=== PATIENT | female | born 1955 | race Caucasian/White ===

== ENCOUNTER 2019-09-19 13:57 | Inpatient (IN) | payer MEDICARE, OTHER, SELFPAY ==
--- NOTE | ~2019-09-19 | US_ITS ---
EXAMINATION: US art doppler w press LE BI EXAM DATE: 09/19/2019 15:56 INDICATION: Left second toe infection, right below-knee amputation. TECHNIQUE: Segmental pressures and plethysmographic and Doppler waveforms of the brachial and left lo wer extremity arteries were obtained. Comparison is made to prior examination from 07/02/2019. FINDINGS: Could not obtain the brachial artery pressures. RIGHT LEG: The ankle-brachial index (CUCO) is could not obtain (normal >= 0.9-1). The great toe-brachial index (TBI) is could not obtain (normal >= 0.65). The lower extremity ratios, segmental pressure gradients as follows; Dorsalis pedis: Could not obtain ( mmHg). Posterior tibial: Could not obtain ( mmHg). LEFT LEG: The ankle-brachial index (CUCO) is could not obtain (normal >= 0.9-1). The great toe-brachial index (TBI) is could not obtain (normal >= 0.65). The lower extremity ratios, segmental pressure gradients as follows; Dorsalis pedis: Could not obtain ( mmHg). Posterior tibial: Could not obtain ( mmHg). Waveforms are monophasic. Systolic left toe pressure of 111 mmHg. IMPRESSION: Could not obtain ankle brachial indices. Reviewed, dictated and finalized at location A. LES POURER
--- NOTE | ~2019-09-19 | XR_ITS ---
XR foot LT min 3V DATE: 09/19/2019 14:56 INDICATION: Third toe foot wound TECHNIQUE: 4 views of left foot COMPARISON: None FINDINGS: There is diffuse severe osteopenia. No fracture or dislocation or active periosteal reaction or bone destruction is detected. Mild chroni c deformity at the interphalangeal joint of the great toe. There are extensive arterial calcifications of the ankle and foot including prominent calcification o f the metatarsal and digital arteries, suggesting diabetes most likely. Prominent calcifications are noted in the soft tissues posterior to the calcaneus. IMPRESSION: Extensive arterial calcifications, likely due to diabetes Severe diffuse osteopenia No radiographic findings of osteomyelitis are noted Reviewed, dictated and finalized at location B. USSION INSTRUMENT TUNER
[2019-09-19 14:25] VITALS: BP 83/39; PULSE 47; RESP 12; TEMP 36.3; O2SAT 100
--- NOTE | 2019-09-19 14:36 | ED.LOWEXIN ---
HPI - Extremity Injury (Lower) General Chief Complaint: Extremity Injury, Lower Stated Complaint: Toe Infection Time Seen by Provider: 09/19/19 14:31 Source: patient and family (son) Mode of arrival: EMS Limitations: no limitations History of Present Illness HPI Narrative: Pt is a 64 y/o female who presents to the ED, via EMS with c/o a wound to her lt second toe. Pt lives at home with her son. Per son, pt has had the wound for 3 months and he has been managing it. Pt denies cough, SOB, N/V, or fever. Pt was seen in the ED a month ago for her wound but has not followed up with her PCP. MD complaint: other (wound lt second toe) Onset (ago): month(s) (3) Relieving factors: nothing Other symptoms: none Related Data Home Medications Medication Instructions Recorded Confirmed Lantus U-100 Insulin 15 unit SUBCUT BID 07/02/19 07/02/19 allopurinol 100 mg PO DAILY 07/02/19 07/02/19 amlodipine 5 mg PO HS 07/02/19 07/02/19 aspirin [Adult Low Dose Aspirin] 81 mg PO DAILY 07/02/19 07/02/19 atorvastatin 40 mg PO EVERY OTHER DAY 07/02/19 07/02/19 clonidine HCl 0.2 mg PO TID 07/02/19 07/02/19 clopidogrel 75 mg PO DAILY 07/02/19 07/02/19 cyanocobalamin (vitamin B-12) 1,000 mcg PO 3XW 07/02/19 07/02/19 cyclosporine modified 50 mg PO Q12H 07/02/19 07/02/19 ergocalciferol (vitamin D2) 50,000 unit PO WEEKLY 07/02/19 07/02/19 folic acid 1 mg PO DAILY 07/02/19 07/02/19 furosemide 40 mg PO DAILY PRN 07/02/19 07/02/19 isosorbide mononitrate 30 mg PO DAILY 07/02/19 07/02/19 levetiracetam 500 mg PO BID 07/02/19 07/02/19 magnesium oxide 400 mg PO EVERY OTHER DAY 07/02/19 07/02/19 metoprolol tartrate 12.5 mg PO BID 07/02/19 07/02/19 mycophenolate mofetil 250 mg PO BID 07/02/19 07/02/19 omeprazole 40 mg PO BID 07/02/19 07/02/19 polyethylene glycol 3350 [Miralax] 17 g PO DAILY 07/02/19 07/02/19 prednisone 5 mg PO DAILY 07/02/19 07/02/19 tamsulosin 0.4 mg PO DAILY 07/02/19 07/02/19 Allergies Allergy/AdvReac Type Severity Reaction Status Date / Time gentamicin Allergy Unknown Unknown Verified 09/19/19 17:10 metronidazole Allergy Unknown Unknown Verified 09/19/19 17:10 Penicillins Allergy Unknown Unknown Verified 09/19/19 17:10 simvastatin Allergy Unknown Unknown Verified 09/19/19 17:10 Sulfa (Sulfonamide Allergy Unknown Rash Verified 09/19/19 17:10 Antibiotics) losartan Allergy Unknown Verified 09/19/19 17:10 iohexol AdvReac Severe Other Verified 09/19/19 17:10 [From CONTRAST - CT, XRAY] Review of Systems Review of Systems: All systems reviewed & are unremarkable except as noted in HPI and below Constitutional: Constitutional: Denies fever(s) Respiratory: Respiratory: Denies cough and Denies dyspnea Gastrointestinal: Gastrointestinal: Denies nausea and Denies vomiting Integumentary/Breasts: Skin/Breast: Reports wounds (lt second toe) PMFSH Past Medical History Medical History Acute respiratory failure BEAU (acute kidney injury) Cataracts, bilateral Cellulitis of toe of left foot CHF (congestive heart failure) Cholecystitis Chronic anemia CKD stage 3 due to type 1 diabetes mellitus Colitis CVA (cerebral vascular accident) Diabetic neuropathy Fecal impaction GERD (gastroesophageal reflux disease) HTN (hypertension) Hyperkalemia Hyperlipidemia Immunosuppression due to drug therapy SRINI (obstructive sleep apnea) Otitis externa Recurrent falls while walking Renal failure Right hemiplegia Seizure disorder Steroid dependent Type 1 diabetes UTI (urinary tract infection) Surgical History Surgical History History of appendectomy Hx of BKA Hx of cardiac cath Hx of cataract surgery Kidney transplant recipient Social History Social History Smoking status: Never smoker Second hand tobacco smoke exposure: Yes Alcohol intake: never Substance use: never Substance use type: does n
[2019-09-19] MEDS: LACTATED RINGERS 1,000 ML 999 ML IV CONT (15:16)
[2019-09-19 15:24] LABS: Basophils Percent Auto 0.4 % (0.2-1.2); Eosinophils Absolute Auto 0.1 K/mm3 (0-0.3); Eosinophils Percent Auto 1.1 % (0-4.4); Hematocrit 36.1 % (37.0-47.0); Hemoglobin 11.4 g/dL (12.0-15.0); Immature Granulocyte Absolute 0.19 K/mm3 (0.00-0.031); Immature Granulocyte Percent A 1.7 % (0-0.5); Lymphocytes Absolute Auto 1.61 K/mm3 (0.9-3.2); Lymphocytes Percent Auto 14.6 % (18.3-44.2); Mean Corpuscular HGB Conc 31.6 g/dl (32-36); Mean Corpuscular Hemoglobin 29.5 pg (26-34); Mean Corpuscular Volume 93.3 fl (80-100); Mean Platelet Volume 9.4 fl (7.4-10.4); Monocytes Absolute Auto 0.7 K/mm3 (0.1-0.6); Monocytes Percent Auto 5.9 % (2.6-8.5); Neutrophils Absolute Auto 8.4 K/mm3 (1.3-6.7); Neutrophils Percent Auto 76.3 % (45.5-73.1); Platelet Count Result 430 k/mm3 (150-375); Red Blood Count 3.87 M/mm3 (4.2-5.4); Red Cell Distribution Width 14.2 % (11.5-14.5)
[2019-09-19 15:33] LABS: Prothrombin Time 12.5 Seconds (11.1-14.7)
[2019-09-19 15:34] LABS: Partial Thromboplastin Time 24.6 SECONDS (22.3-36.8)
[2019-09-19 15:35] LABS: Lactic Acid Reflex 2.2 mmol/L (0.7-2.1)
[2019-09-19 15:54] LABS: Alanine Aminotransferase 13 U/L (4-35); Albumin Level 3.3 g/dL (3.5-5.1); Alkaline Phosphatase 49 U/L (38-126); Aspartate Amino Transferase 21 U/L (14-36); Bilirubin,Total 0.5 mg/dL (0.2-1.3); Blood Urea Nitrogen 45 mg/dL (7-17); Calcium 8.8 mg/dL (8.4-10.2); Carbon Dioxide 23 mmol/L (22-30); Chloride 102 mmol/L (98-107); Estimated Glomerular Filt Rate 38; Glucose 101 mg/dL (65-105); Potassium 4.4 mmol/L (3.4-5.0); Sodium 136 mmol/L (137-145)
[2019-09-19 16:32] VITALS: BP 123/73; PULSE 74; RESP 13; O2SAT 100
--- NOTE | 2019-09-19 18:14 | ADMGEN ---
This patient, Diana Ott, was admitted to 2 Medical Room 254-01. Patient/family oriented to hospital policies and general routines including ID bracelet, bed and alarms, visiting hours, pain management, procedures, bathroom and other care routines, personal items, smoking policy, room service/diet, and visiting hours. Valuables list has been completed. Information on how to activate the Rapid Response Team has been discussed. Patient/Family are encouraged to report perceived risks to care and to ask questions if they do not understand what they are told or what they should do.
[2019-09-19 18:21] LABS: Reflex Lactic Acid Yes or No Add Lactic
--- NOTE | 2019-09-19 18:27 | PC.NURSE ---
Patient and family poor historians. Unable to confirm reactions to allergies.
[2019-09-19 18:35] VITALS: BP 105/74; PULSE 78; RESP 16; O2SAT 95
[2019-09-19 18:52] VITALS: BP 117/68; PULSE 62; RESP 18; TEMP 36.9; O2SAT 100
[2019-09-19 19:04] LABS: Lactic Acid 2.4 mmol/L (0.7-2.1)
[2019-09-19 22:00] VITALS: BP 109/57; PULSE 79; RESP 16; TEMP 36.8; O2SAT 98
--- NOTE | 2019-09-20 03:00 | PM.IMHP ---
H&P: HPI History of Present Illness Chief complaint: Sent to ER by PCP Narrative: This is a 63 year old Diabetic female with known CKD w/ previous HD now s/p bilateral renal transplant x2 on immunosuppressive therapy, HTN, CHF who presented again to the ER for evaluation of a chronic wound of her 2nd toe of her left foot. The patient remarks that her PCP sent her to the ER yesterday. The patient was last admitted to our Hospitalist service for this second toe wound in June 2019 where she was treated with Imipenem/Vancomycin. The patient states that she believes her chronic wound has actually been improving recently and is not as red as it has been a few weeks ago. She denies any drainage, fevers, chills, nausea, vomiting, shortness of breath or other symptoms. The patient was evaluated in the ER yesterday and routine labs were obtained. She was found to have a mildly elevated WBC of 11,000 and elevated lactic acid of 2.2. ER provider has started the patient on IV antibiotics and General surgery has been consulted. She has no other complaints. Review of Systems Review of Systems: All systems reviewed & are unremarkable except as noted in HPI and below PMFSH Past Medical History Medical History Acute respiratory failure BEAU (acute kidney injury) Cataracts, bilateral Cellulitis of toe of left foot CHF (congestive heart failure) Cholecystitis Chronic anemia CKD stage 3 due to type 1 diabetes mellitus Colitis CVA (cerebral vascular accident) Diabetic neuropathy Fecal impaction GERD (gastroesophageal reflux disease) HTN (hypertension) Hyperkalemia Hyperlipidemia Immunosuppression due to drug therapy SRINI (obstructive sleep apnea) Otitis externa Recurrent falls while walking Renal failure Right hemiplegia Seizure disorder Steroid dependent Type 1 diabetes UTI (urinary tract infection) Surgical History Surgical History History of appendectomy Hx of BKA Hx of cardiac cath Hx of cataract surgery Kidney transplant recipient Family History Family History Mother Heart disease COPD (chronic obstructive pulmonary disease) Father Leukemia Social History Social History Smoking status: Never smoker Second hand tobacco smoke exposure: Yes Alcohol intake: never Substance use: never Substance use type: does not use Gender identity (if verbalized by the patient): Female Spiritual care concerns: No Agree to blood products: Yes Meds Home Medications and Allergies Home Medications Medication Instructions Recorded Confirmed Type Lantus U-100 Insulin 15 unit SUBCUT BID 07/02/19 09/19/19 History allopurinol 100 mg PO DAILY 07/02/19 09/19/19 History amlodipine 5 mg PO HS 07/02/19 09/19/19 History aspirin [Adult Low Dose Aspirin] 81 mg PO DAILY 07/02/19 09/19/19 History atorvastatin 40 mg PO EVERY OTHER DAY 07/02/19 09/19/19 History clonidine HCl 0.2 mg PO TID 07/02/19 09/19/19 History clopidogrel 75 mg PO DAILY 07/02/19 09/19/19 History cyanocobalamin (vitamin B-12) 1,000 mcg PO 3XW 07/02/19 09/19/19 History cyclosporine modified 50 mg PO Q12H 07/02/19 09/19/19 History ergocalciferol (vitamin D2) 50,000 unit PO WEEKLY 07/02/19 09/19/19 History folic acid 1 mg PO DAILY 07/02/19 09/19/19 History furosemide 40 mg PO PRN 07/02/19 09/19/19 History isosorbide mononitrate 30 mg PO DAILY 07/02/19 09/19/19 History levetiracetam 500 mg PO BID 07/02/19 09/19/19 History magnesium oxide 400 mg PO EVERY OTHER DAY 07/02/19 09/19/19 History metoprolol tartrate 12.5 mg PO BID 07/02/19 09/19/19 History mycophenolate mofetil 250 mg PO BID 07/02/19 09/19/19 History omeprazole 40 mg PO BID 07/02/19 09/19/19 History polyethylene glycol 3350 [Miralax] 17 g PO DAILY 07/02/19 09/19/19 History prednisone 5 mg PO DAILY 07/02/19
[2019-09-20 03:44] LABS: Basophils Percent Auto 0.4 % (0.2-1.2); Eosinophils Absolute Auto 0.1 K/mm3 (0-0.3); Eosinophils Percent Auto 1.1 % (0-4.4); Hematocrit 34.1 % (37.0-47.0); Hemoglobin 10.6 g/dL (12.0-15.0); Immature Granulocyte Absolute 0.15 K/mm3 (0.00-0.031); Immature Granulocyte Percent A 1.5 % (0-0.5); Lactic Acid Reflex 1.1 mmol/L (0.7-2.1); Lymphocytes Absolute Auto 1.43 K/mm3 (0.9-3.2); Lymphocytes Percent Auto 14.3 % (18.3-44.2); Mean Corpuscular HGB Conc 31.1 g/dl (32-36); Mean Corpuscular Hemoglobin 28.8 pg (26-34); Mean Corpuscular Volume 92.7 fl (80-100); Mean Platelet Volume 9.5 fl (7.4-10.4); Monocytes Absolute Auto 0.7 K/mm3 (0.1-0.6); Monocytes Percent Auto 6.8 % (2.6-8.5); Neutrophils Absolute Auto 7.6 K/mm3 (1.3-6.7); Neutrophils Percent Auto 75.9 % (45.5-73.1); Platelet Count Result 415 k/mm3 (150-375); Red Blood Count 3.68 M/mm3 (4.2-5.4); Red Cell Distribution Width 14.2 % (11.5-14.5)
[2019-09-20 03:45] LABS: Alanine Aminotransferase 13 U/L (4-35); Albumin Level 3.1 g/dL (3.5-5.1); Alkaline Phosphatase 70 U/L (38-126); Aspartate Amino Transferase 19 U/L (14-36); Bilirubin,Total 0.4 mg/dL (0.2-1.3); Blood Urea Nitrogen 43 mg/dL (7-17); Calcium 8.7 mg/dL (8.4-10.2); Carbon Dioxide 21 mmol/L (22-30); Chloride 103 mmol/L (98-107); Estimated Glomerular Filt Rate 32; Glucose 350 mg/dL (65-105); Potassium 4.4 mmol/L (3.4-5.0); Sodium 136 mmol/L (137-145)
[2019-09-20 06:00] VITALS: BP 138/51; PULSE 88; RESP 16; TEMP 37.2; O2SAT 98
[2019-09-20] MEDS: INSULIN ASPART (*BKC) 100 UNITS/ML SUB-Q ×2 (08:11→16:47)
[2019-09-20] MEDS: INSULIN GLARGINE (*BKC) 100 UNITS/ML 15 UNITS SUB-Q ×2 (08:11→22:33)
[2019-09-20] MEDS: polyethylene glycoL 3350 17 GM POWD.PACK PO (08:15)
[2019-09-20] MEDS: mycophenolate mofetiL 250 MG CAPSULE PO ×2 (08:15→22:19)
[2019-09-20 08:17] VITALS: PULSE 99
[2019-09-20] MEDS: METOPROLOL TARTRATE 12.5 MG TABLET PO ×2 (08:17→22:19)
[2019-09-20] MEDS: TAMSULOSIN HCL 0.4 MG CAPSULE PO (08:17)
[2019-09-20] MEDS: PANTOPRAZOLE 40 MG TABLET PO ×2 (08:18→22:19)
[2019-09-20] MEDS: CLOPIDOGREL BISULFATE 75 MG TABLET PO (08:18)
[2019-09-20] MEDS: FOLIC ACID 1 MG TABLET PO (08:18)
[2019-09-20] MEDS: levETIRAcetam 500 MG TABLET PO ×2 (08:18→22:19)
[2019-09-20] MEDS: predniSONE 5 MG TABLET PO (08:19)
[2019-09-20] MEDS: ASPIRIN 81 MG ENTERIC TABLET PO (08:19)
[2019-09-20] MEDS: MAGNESIUM OXIDE 400 MG TABLET PO (08:19)
[2019-09-20] MEDS: allopurinoL 100 MG TABLET PO (08:19)
[2019-09-20] MEDS: ISOSORBIDE MONONITRATE 30 MG TAB.ER.24H PO (08:19)
[2019-09-20] MEDS: EUCERIN CREAM 120 GM JAR 1 APPLIC TOPICAL ×2 (08:20→22:34)
[2019-09-20] MEDS: CLONIDINE HCL 0.2 MG TABLET PO ×3 (08:22→16:47)
[2019-09-20 08:51] LABS: Glucose Point of Care 325 (65-105)
--- NOTE | 2019-09-20 10:16 | PM.CNGS ---
Assessment and Plan Assessment and plan (1) Wound of left foot: Code(s): S91.302A - Unspecified open wound, left foot, initial encounter Status: Acute Assessment and Plan: The patient has a chronic diabetic foot ulcer on her left 2nd toe with no evidence of an active infection. There is no evidence of osteomyelitis on the plain films and the wound did not extend to bone on exam. Her mild leukocytosis and lactic acidosis have resolved today. The patient is immunosuppressed and an insulin-dependent diabetic, which does raise her risk for infection. Per the son, she has had some issues with controlling her blood glucose at home over the past few weeks, with it being too low and then too high. I discussed with the patient and her son the importance of glycemic control in the healing process. I stopped the IV Vancomycin, which is not needed at this point, especially with her renal function and history of a kidney transplant. When reviewing her previous vascular studies on this admission and from her admission in June or 2018, she likely has some element of peripheral arterial disease. We would recommend that she has an outpatient evaluation by a Vascular Surgeon in the next 1-3 months. This was discussed with her son as well. The peripheral arterial disease would also contribute to poor healing. From a surgical standpoint, it is okay to discharge the patient home when medically stable. Will allow the Hospitalist to decide on any oral antibiotic therapy on discharge. I did also speak with the pet care associate about having the patient's wound followed by home health on an outpatient basis. The patient's son verbalizes concern about getting her to follow-up appointments in the wound clinic due to her physical condition. We are okay with her being followed by home health and following up with a Vascular Surgeon, and then we would only need to see her on an as needed basis if this wound worsens or becomes infected. I also encouraged left leg elevation when at rest and reducing any pressure to the bottom of her left heel. Thank you for allowing us to evaluate the patient in consultation and we will continue to follow along with you. (2) intermediate project manager (current) use of antithrombotics/antiplatelets: Code(s): Z79.02 - intermediate project manager (current) use of antithrombotics/antiplatelets Status: Acute (3) Immunosuppression due to drug therapy: Code(s): Z79.899 - Other skilled nursing (current) drug therapy Status: Acute (4) Type 1 diabetes: Qualifiers: Diabetes mellitus complication detail: with other circulatory complications Diabetes mellitus complication status: with circulatory complication Qualified Code(s): E10.59 - Type 1 diabetes mellitus with other circulatory complications Code(s): E10.9 - Type 1 diabetes mellitus without complications Status: Chronic (5) CKD stage 3 due to type 1 diabetes mellitus: Code(s): E10.22 - Type 1 diabetes mellitus with diabetic chronic kidney disease; N18.3 - Chronic kidney disease, stage 3 (moderate) Status: Acute (6) Kidney transplant recipient: Code(s): Z94.0 - Kidney transplant status Status: Acute (7) CHF (congestive heart failure): Qualifiers: Heart failure chronicity: chronic Heart failure type: unspecified Qualified Code(s): I50.9 - Heart failure, unspecified Code(s): I50.9 - Heart failure, unspecified Status: Chronic (8) Peripheral vascular disease: Code(s): I73.9 - Peripheral vascular disease, unspecified Status: Acute Additional Plan Discussed the patient's case and plan of care with Dr. David. History of Present Illness Consult details Consult date: 09/20/19 Reason for consult: wound care (Left 2nd toe diabetic wound) Requesting physician: Jerrod Rowell DO Narrative: This is the 64-year-old diabetic female with a history of chronic kidney disease, peripheral neuropathy, congestive heart f
[2019-09-20] MEDS: SILVERGEL (ELTA) 45 ML 1 APPLIC TOPICAL (11:51)
[2019-09-20 12:12] LABS: Glucose Point of Care 196 (65-105)
[2019-09-20 14:00] VITALS: BP 115/45; PULSE 67; RESP 16; TEMP 36.9; O2SAT 100
--- NOTE | 2019-09-20 14:57 | PM.IMPN ---
Progress Note: A&P Assessment and Plan (1) Wound, open, toe with complication: Code(s): S91.109A - Unspecified open wound of unspecified toe(s) without damage to nail, initial encounter Status: Chronic Assessment and Plan: ------The patient appears to have a chronic wound on the toe of her left foot but it doesn't appear to be acutely infected. However, her blood culture is positive for gram + in chains in the anerobic bottle. Strep infx vs contaminate? Since pt is immunosupressed, I will await for identification and consult Dr. Loo. WBC slightly elevated and vitals stable. Will draw crp and procalcitonin.Will continue imipenem but agree to discontinue the vanc at this time. Continue wound care with sx recommendations. I believe the pt will discharge to home health once appropriate. (2) Eschar of toe: Code(s): R23.4 - Changes in skin texture Status: Chronic Assessment and Plan: -----see above. xray neg for osteomyelititis. May consider MRI vs CT. (3) CKD stage 3 due to type 1 diabetes mellitus: Code(s): E10.22 - Type 1 diabetes mellitus with diabetic chronic kidney disease; N18.3 - Chronic kidney disease, stage 3 (moderate) Status: Acute Assessment and Plan: -----Cr appears to be at baseline. Monitor renal function. Avoid nephrotoxic agents. Renally dose medications. (4) Type 1 diabetes: Qualifiers: Diabetes mellitus complication status: with circulatory complication Diabetes mellitus complication detail: with other circulatory complications Qualified Code(s): E10.59 - Type 1 diabetes mellitus with other circulatory complications Code(s): E10.9 - Type 1 diabetes mellitus without complications Status: Chronic Assessment and Plan: -----Last glucose 196 but does run high. Her a1c is 9.0. She takes lantus and SSI at home. Max rapid insulin given according to the son is 6u. Continue accuchecks, SSI Coverage, Continue lantus insulin. hypoglycemic protocol. (5) HTN (hypertension): Qualifiers: Hypertension type: essential hypertension Qualified Code(s): I10 - Essential (primary) hypertension Code(s): I10 - Essential (primary) hypertension Status: Chronic Assessment and Plan: -----Last glucose 115/45. Continue metoprolol and amlodipine. (6) Seizure disorder: Code(s): G40.909 - Epilepsy, unspecified, not intractable, without status epilepticus Status: Chronic Assessment and Plan: -----Continue Keppra. (7) CHF (congestive heart failure): Qualifiers: Heart failure type: unspecified Heart failure chronicity: chronic Qualified Code(s): I50.9 - Heart failure, unspecified Code(s): I50.9 - Heart failure, unspecified Status: Chronic Assessment and Plan: -----Pt does have some fluid on her LE but she says its about normal. Cr a little elevated. Monitor fluid status. She takes lasix PRN as needed at home which has been continued. (8) Positive blood culture: Code(s): R78.81 - Bacteremia Status: Acute Assessment and Plan: -----one bottle is positive for gram + cocci in chains in the anerobic bottle. Will await identification and the 2nd blood culture. The patient is immunosuppressed which puts her at higher risk. Will continue the imipenem. Possible source includes toe, skin lesions, or lungs. Less likely any endocarditis, urine etc. will await Dr. painter callaway recommendations and further identification. (9) Peripheral vascular disease: Code(s): I73.9 - Peripheral vascular disease, unspecified Status: Acute Assessment and Plan: -----plan to follow-up with a vascular surgeon. I have sent records to their office to help facilitate them obtaining an appointment (10) Immunosuppression due to drug therapy: Code(s): Z79.899 - Other director long term care (current) drug therapy Status: u
[2019-09-20 16:44] LABS: Glucose Point of Care 248 (65-105)
[2019-09-20 16:45] VITALS: BP 109/73
--- NOTE | 2019-09-20 21:57 | PC.NURSE ---
Day shift did not administer 1700 medications. Discussed with charge nurse, Roya Roach RN about the situation and if all medication was safe to give with the 2100 medication. There are no duplicated medication. Decided to give metoprolol now and recheck vital signs at 0000 and if still WNL will administer the Norvasc
[2019-09-20 22:00] VITALS: BP 124/53; PULSE 64; RESP 21; TEMP 36.3; O2SAT 100
[2019-09-20] MEDS: ATORVASTATIN 40 MG TABLET PO (22:19)
[2019-09-20] MEDS: NITROFURANTOIN MONOHYD MACROCR 100 MG CAP PO (22:21)
[2019-09-20] MEDS: AMLODIPINE BESYLATE 5 MG TABLET PO (23:56)
[2019-09-21 01:09] LABS: Glucose Point of Care 230 (65-105)
[2019-09-21 06:00] VITALS: BP 148/50; PULSE 66; RESP 20; TEMP 36.4; O2SAT 99
[2019-09-21 08:00] VITALS: PULSE 66; RESP 20; O2SAT 99
[2019-09-21 08:19] LABS: Blood Urea Nitrogen 44 mg/dL (7-17); CRP 1.3 mg/dL (<1.0); Calcium 8.6 mg/dL (8.4-10.2); Carbon Dioxide 22 mmol/L (22-30); Chloride 102 mmol/L (98-107); Estimated CRCL calculation 41 ml/min; Estimated Glomerular Filt Rate 41; Glucose 189 mg/dL (65-105); Potassium 4.2 mmol/L (3.4-5.0); Sodium 132 mmol/L (137-145)
[2019-09-21] MEDS: SILVERGEL (ELTA) 45 ML 1 APPLIC TOPICAL (08:52)
[2019-09-21] MEDS: CLONIDINE HCL 0.2 MG TABLET PO ×3 (08:54→17:10)
[2019-09-21] MEDS: levETIRAcetam 500 MG TABLET PO ×2 (08:54→17:10)
[2019-09-21] MEDS: METOPROLOL TARTRATE 12.5 MG TABLET PO ×2 (08:55→17:09)
[2019-09-21] MEDS: CLOPIDOGREL BISULFATE 75 MG TABLET PO (08:55)
[2019-09-21] MEDS: CYANOCOBALAMIN 1,000 MCG TABLET 1000 MCG PO (08:56)
[2019-09-21] MEDS: TAMSULOSIN HCL 0.4 MG CAPSULE PO (08:56)
[2019-09-21] MEDS: FUROSEMIDE 40 MG TABLET PO ×2 (08:56→09:13)
[2019-09-21] MEDS: polyethylene glycoL 3350 17 GM POWD.PACK PO (08:56)
[2019-09-21] MEDS: mycophenolate mofetiL 250 MG CAPSULE PO ×2 (08:57→17:10)
[2019-09-21] MEDS: ASPIRIN 81 MG ENTERIC TABLET PO (08:58)
[2019-09-21] MEDS: PANTOPRAZOLE 40 MG TABLET PO ×2 (08:58→17:09)
[2019-09-21] MEDS: ISOSORBIDE MONONITRATE 30 MG TAB.ER.24H PO (08:58)
[2019-09-21] MEDS: allopurinoL 100 MG TABLET PO (08:59)
[2019-09-21] MEDS: FOLIC ACID 1 MG TABLET PO (08:59)
[2019-09-21] MEDS: predniSONE 5 MG TABLET PO (08:59)
[2019-09-21 09:10] LABS: Glucose Point of Care 178 (65-105)
[2019-09-21] MEDS: INSULIN GLARGINE (*BKC) 100 UNITS/ML 15 UNITS SUB-Q ×2 (09:11→17:05)
[2019-09-21] MEDS: EUCERIN CREAM 120 GM JAR 1 APPLIC TOPICAL ×2 (11:02→17:15)
[2019-09-21 11:39] LABS: Basophils Percent Auto 0.4 % (0.2-1.2); Eosinophils Absolute Auto 0.4 K/mm3 (0-0.3); Eosinophils Percent Auto 3.9 % (0-4.4); Hematocrit 32.2 % (37.0-47.0); Immature Granulocyte Absolute 0.17 K/mm3 (0.00-0.031); Immature Granulocyte Percent A 1.8 % (0-0.5); Lymphocytes Percent Auto 12.8 % (18.3-44.2); Mean Corpuscular HGB Conc 31.1 g/dl (32-36); Mean Corpuscular Hemoglobin 29.2 pg (26-34); Mean Corpuscular Volume 94.2 fl (80-100); Mean Platelet Volume 9.6 fl (7.4-10.4); Monocytes Absolute Auto 0.7 K/mm3 (0.1-0.6); Monocytes Percent Auto 7.7 % (2.6-8.5); Neutrophils Absolute Auto 6.9 K/mm3 (1.3-6.7); Neutrophils Percent Auto 73.4 % (45.5-73.1); Platelet Count Result 356 k/mm3 (150-375); Red Blood Count 3.42 M/mm3 (4.2-5.4); Red Cell Distribution Width 14.3 % (11.5-14.5); White Blood Count 9.4 K/mm3 (4.5-10.0)
[2019-09-21 12:16] LABS: Glucose Point of Care 214 (65-105)
[2019-09-21] MEDS: INSULIN ASPART (*BKC) 100 UNITS/ML SUB-Q ×2 (12:17→17:06)
[2019-09-21 14:00] VITALS: BP 136/54; PULSE 64; RESP 16; TEMP 36.4; O2SAT 98
--- NOTE | 2019-09-21 15:27 | PCCCNOTE ---
On 09/21/19, the student, [Bridgett Rodriguez ], provided care and completed [facility] documentation on this patient. I have reviewed the student's documentation and agree with the findings.
--- NOTE | 2019-09-21 16:57 | PM.IMPN ---
Progress Note: A&P Assessment and Plan (1) Wound, open, toe with complication: Code(s): S91.109A - Unspecified open wound of unspecified toe(s) without damage to nail, initial encounter Status: Chronic Assessment and Plan: ------The patient appears to have a chronic wound on the toe of her left foot but it doesn't appear to be acutely infected. However, her blood culture is positive for gram + in chains in the anerobic bottle. Strep infx vs contaminate? Since pt is immunosupressed, I will await for identification and consult Dr. Loo. WBC WNL. CRP midly elevated. procalcitonin pending. Will continue imipenem but agree to discontinue the vanc at this time. Continue wound care with sx recommendations. I believe the pt will discharge to home health once appropriate--likely tomorrow. (2) Eschar of toe: Code(s): R23.4 - Changes in skin texture Status: Chronic Assessment and Plan: -----see above. xray neg for osteomyelititis. May consider MRI vs CT depending on blood culture. (3) CKD stage 3 due to type 1 diabetes mellitus: Code(s): E10.22 - Type 1 diabetes mellitus with diabetic chronic kidney disease; N18.3 - Chronic kidney disease, stage 3 (moderate) Status: Acute Assessment and Plan: -----Cr appears to be at baseline. Monitor renal function. Avoid nephrotoxic agents. Renally dose medications. Will give IV lasix today since she still has significant edema despite oral lasix today and yesterday. (4) Type 1 diabetes: Qualifiers: Diabetes mellitus complication status: with circulatory complication Diabetes mellitus complication detail: with other circulatory complications Qualified Code(s): E10.59 - Type 1 diabetes mellitus with other circulatory complications Code(s): E10.9 - Type 1 diabetes mellitus without complications Status: Chronic Assessment and Plan: -----Last glucose 214 but does run high. Her a1c is 9.0. She takes lantus and SSI at home. Max rapid insulin given according to the son is 6u. Continue accuchecks, SSI Coverage, Continue lantus insulin. hypoglycemic protocol. (5) HTN (hypertension): Qualifiers: Hypertension type: essential hypertension Qualified Code(s): I10 - Essential (primary) hypertension Code(s): I10 - Essential (primary) hypertension Status: Chronic Assessment and Plan: -----Last glucose 136/54. Continue metoprolol and amlodipine. (6) Seizure disorder: Code(s): G40.909 - Epilepsy, unspecified, not intractable, without status epilepticus Status: Chronic Assessment and Plan: -----Continue Keppra. (7) CHF (congestive heart failure): Qualifiers: Heart failure type: unspecified Heart failure chronicity: chronic Qualified Code(s): I50.9 - Heart failure, unspecified Code(s): I50.9 - Heart failure, unspecified Status: Chronic Assessment and Plan: -----Pt does have some fluid on her LE but she says its about normal. Cr a little elevated. Monitor fluid status. She takes lasix PRN as did receive it today and yesterday. Will give one time dose of IV since she looks pretty swollen still. (8) Positive blood culture: Code(s): R78.81 - Bacteremia Status: Acute Assessment and Plan: -----one bottle is positive for gram + cocci in chains in the anerobic bottle. Will await identification and the 2nd blood culture. The patient is immunosuppressed which puts her at higher risk. Will continue the imipenem. Possible source includes toe, skin lesions, or lungs. Less likely any endocarditis, urine etc. will await Dr. loo is recommendations and further identification. (9) Peripheral vascular disease: Code(s): I73.9 - Peripheral vascular disease, unspecified Status: Acute Assessment and Plan: -----plan to follow-up with a vascular surgeon. I have sent records to their offi
[2019-09-21] MEDS: FUROSEMIDE INJ 40 MG/4 ML VIAL IV PUSH (17:14)
[2019-09-21 17:44] LABS: Glucose Point of Care 225 (65-105)
--- NOTE | 2019-09-21 18:15 | CONS_ITS ---
DATE OF CONSULTATION: 09/21/2019 REASON FOR CONSULTATION: Bacteremia. HISTORY OF PRESENT ILLNESS: The patient is a 64-year-old female known to me from the past. She has known diabetes, previous BKA and was admitted to the hospital 2 days ago when her home health nurse was concerned about the appearance of the patient's left 2nd toe. The patient has had no subjective problems with the toe. Her son, with whom she lives, thinks there may have been trauma from a blanket or other bed covering resulting in loss of skin integrity over the distal toe. Here the patient was given imipenem and vancomycin. The latter has now been stopped and the former continues, day 3. Blood cultures returned positive. Last evening consultation was requested. The patient has been doing local skin care for the foot and toe. MEDICATIONS: At home, she is on prednisone 5 mg daily, mycophenolate 250 mg b.i.d., also cyclosporine 50 mg every 12 hours. No other immunosuppressants. ALLERGIES: INTOLERANT OF GENTAMICIN AND METRONIDAZOLE. PENICILLINS AND SULFA BOTH CAUSE RASH OR HIVES. HABITS: No alcohol, no tobacco. PAST MEDICAL AND SURGICAL HISTORY: Renal transplant, cataract surgery, cardiac cath, prior right BKA, , appendectomy, type 1 diabetes mellitus, steroid dependent; seizure disorder, right hemiplegia, otitis externa, SRINI, hyperlipidemia, hypertension, GERD, diabetic neuropathy, previous stroke, chronic anemia, previous cholecystitis. FAMILY HISTORY: Not pertinent to her present illness. SOCIAL HISTORY: Disabled, lives with her son locally. Does not work outside the home. REVIEW OF SYSTEMS: Chronic hearing loss, easy bruisability. 14-point review otherwise negative. PHYSICAL EXAMINATION: GENERAL: This is an elderly female who appears much older than her actual age, in no acute distress. VITAL SIGNS: Afebrile, 66, 20, 148/50, room air. SKIN: Avpmd-jy-flhroxh ecchymoses, upper extremities with thin skin. No hemorrhage. No rashes. NODES: No cervical adenopathy. EENT: Conjunctivae are normal. No petechiae. Dry mucous membranes. NECK: No mass or thyromegaly, and there is no meningismus. LUNGS: Clear to auscultation. CARDIAC: Regular rate and rhythm. Unable to palpate dorsalis pedis pulses. Radial pulses are trace. ABDOMEN: Nondistended, soft. No tenderness. No mass. No organomegaly. EXTREMITIES: Right ASHLEY has some dermatitis. No evidence of infection. On the left, she has a partial-thickness ulcer over the distal aspect of the 2nd toe. She has some mild erythema. No warmth, tenderness, sinus tracts, deformities. LABORATORY DATA: Blood cultures 1 of 2 sets gram-positive cocci in chains. No urine studies done. White count 9.4, hemoglobin 10.0, platelets are 356, minimal left shift on differential. Sodium 132, BUN 44, creatinine 1.3. Estimated GFR 41. Accu-Cheks 100s to 200s. CRP 1.3. RADIOLOGY: Foot x-ray, osteopenia and atherosclerosis findings. Arterial Doppler, unable to obtain CUCO. ASSESSMENT: 1. Bacteremia, probable contaminant such as Streptococcus viridans. Flu infection cannot be ruled out, however, such as group A BFG, Streptococcus. Enterococcus also possible, though less likely. Peptostreptococcus also in the differential, though less likely. 2. Left 2nd toe ulcer, not actively infected. 3. Peripheral vascular disease, accounting for her present illness. 4. 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 5. Chronic renal insufficiency. RECOMMENDATIONS: 1. Continue imipenem adjusted for renal insufficiency. 2. Follow up on microbiology testing and will advise on any changes. 3. Agree with vascular surgery evaluation as an outpatient and continue local wound care. Thank you very much for asking me to see her.
[2019-09-21] MEDS: NITROFURANTOIN MONOHYD MACROCR 100 MG CAP PO (21:50)
[2019-09-21] MEDS: AMLODIPINE BESYLATE 5 MG TABLET PO (21:50)
[2019-09-21 22:00] VITALS: BP 118/58; PULSE 62; RESP 20; TEMP 36.1; O2SAT 90
[2019-09-21 22:36] LABS: Glucose Point of Care 170 (65-105)
[2019-09-22 05:59] VITALS: BP 117/81; PULSE 58; RESP 20; TEMP 36.1; O2SAT 100
[2019-09-22 07:48] LABS: Glucose Point of Care 105 (65-105)
[2019-09-22 07:52] VITALS: PULSE 58; RESP 20; O2SAT 100
[2019-09-22] MEDS: INSULIN GLARGINE (*BKC) 100 UNITS/ML 15 UNITS SUB-Q ×2 (08:47→17:11)
[2019-09-22] MEDS: CLONIDINE HCL 0.2 MG TABLET PO ×3 (08:48→17:08)
[2019-09-22] MEDS: PANTOPRAZOLE 40 MG TABLET PO ×2 (08:48→17:09)
[2019-09-22] MEDS: TAMSULOSIN HCL 0.4 MG CAPSULE PO (08:48)
[2019-09-22] MEDS: levETIRAcetam 500 MG TABLET PO ×2 (08:48→17:08)
[2019-09-22] MEDS: allopurinoL 100 MG TABLET PO (08:49)
[2019-09-22] MEDS: ASPIRIN 81 MG ENTERIC TABLET PO (08:49)
[2019-09-22] MEDS: FOLIC ACID 1 MG TABLET PO (08:49)
[2019-09-22] MEDS: mycophenolate mofetiL 250 MG CAPSULE PO ×2 (08:49→17:09)
[2019-09-22] MEDS: predniSONE 5 MG TABLET PO (08:50)
[2019-09-22] MEDS: MAGNESIUM OXIDE 400 MG TABLET PO (08:50)
[2019-09-22] MEDS: METOPROLOL TARTRATE 12.5 MG TABLET PO ×2 (08:50→17:08)
[2019-09-22] MEDS: ISOSORBIDE MONONITRATE 30 MG TAB.ER.24H PO (08:50)
[2019-09-22] MEDS: CLOPIDOGREL BISULFATE 75 MG TABLET PO (08:50)
[2019-09-22] MEDS: polyethylene glycoL 3350 17 GM POWD.PACK PO (08:56)
[2019-09-22] MEDS: SILVERGEL (ELTA) 45 ML 1 APPLIC TOPICAL (08:57)
[2019-09-22] MEDS: EUCERIN CREAM 120 GM JAR 1 APPLIC TOPICAL ×2 (08:58→17:15)
[2019-09-22 10:04] LABS: Blood Urea Nitrogen 49 mg/dL (7-17); Calcium 8.9 mg/dL (8.4-10.2); Carbon Dioxide 21 mmol/L (22-30); Chloride 107 mmol/L (98-107); Estimated CRCL calculation 34 ml/min; Estimated Glomerular Filt Rate 32; Glucose 123 mg/dL (65-105); Potassium 5.2 mmol/L (3.4-5.0); Sodium 137 mmol/L (137-145)
[2019-09-22 12:12] LABS: Glucose Point of Care 103 (65-105)
[2019-09-22 13:43] LABS: Procalcitonin 0.14 ng/mL (<0.10)
[2019-09-22 14:00] VITALS: BP 114/56; PULSE 65; RESP 16; TEMP 36.6; O2SAT 100
--- NOTE | 2019-09-22 14:04 | WPDINFPN2 ---
Progress Note: A&P Assessment and Plan (1) Positive blood culture: Code(s): R78.81 - Bacteremia Status: Acute Assessment and Plan: 1. S mitis bacteremia, suspect transient infection from oral source. 2. Renal transplant with immune suppression 3. PCN allergy, tolerates cephalosporin REC Ctx #1 (antibiotic # 3). Redo BCs. If the latter are ng after 2 days minimum (Thursday 2-8), then can switch to oral therapy. Subjective Date/time seen: 09/22/19 14:04 Interval history: no oral pain, multiple missing teeth Exam Narrative: Exam Narrative: afebrile Const: General: no acute distress HENMT: Mouth: Yes moist mucous membranes Other: teeth not overtly decayed Resp: Effort & Inspection: normal respiratory effort Auscultation: clear to auscultation bilaterally Cardio: Rate: regular rate Rhythm: regular rhythm Heart sounds: no gallops and no murmurs GI: Inspection: non-distended GI Palp: Yes Soft to palpation and No Tenderness to palpation present (GI) Objective Data Vital Signs Vital Signs: Vital Signs - 24 hr 09/21/19 22:00 09/22/19 05:59 09/22/19 07:52 Temperature 36.1 C L 36.1 C L Pulse Rate 62 58 L 58 L Respiratory Rate 20 20 20 Blood Pressure 118/58 L 117/81 Pulse Oximetry 90 100 100 Intake/Output Intake/Output: Intake & Output 09/19/19 09/20/19 09/21/19 09/22/19 23:59 23:59 23:59 23:59 Intake Total 1600 1720 2040 640 Balance 1600 1720 2040 640 Meds/Results Medications: Active Medications Generic Name Dose Route Start Last Admin Trade Name Freq PRN Reason Stop Dose Admin Allopurinol 100 mg 09/20/19 08:00 09/22/19 08:49 Zyloprim PO 100 mg DAILY@0800 KATHRIN Administration Amlodipine Besylate 5 mg 09/20/19 21:00 09/21/19 21:50 Norvasc PO 5 mg HS KATHRIN Administration Aspirin 81 mg 09/20/19 09:00 09/22/19 08:49 Aspirin Ec PO 81 mg DAILY KATHRIN Administration Atorvastatin Calcium 40 mg 09/20/19 21:00 09/20/19 22:19 Lipitor PO 40 mg Q48H KATHRIN Administration Clonidine HCl 0.2 mg 09/20/19 09:00 09/22/19 12:49 Catapres PO 0.2 mg TID KATHRIN Administration Clopidogrel Bisulfate 75 mg 09/20/19 09:00 09/22/19 08:50 Plavix PO 75 mg DAILY KATHRIN Administration Cyanocobalamin 1,000 mcg 09/21/19 09:00 09/21/19 08:56 Vitamin B-12 Tab PO 1,000 mcg MoWeFr@0900 KATHRIN Administration Cyclosporine 50 mg 09/20/19 09:00 09/22/19 08:50 Neoral Capsule PO 50 mg Q12HR KATHRIN Administration Dextrose 12.5 gm 09/20/19 02:56 Dextrose 50% Syringe IV PUSH PRN PRN Hypoglycemia Protocol Ergocalciferol 50,000 unit 09/26/19 09:00 Drisdol PO Mo@0900 [facility] Folic Acid 1 mg 09/20/19 09:00 09/22/19 08:49 Folic Acid PO 1 mg DAILY KATHRIN Administration Glucagon 1 mg 09/20/19 02:56 Glucagon For Inj IM PRN PRN Hypoglycemia Protocol Glucose 15 gm 09/20/19 02:56 Glutose 15 PO PRN PRN Hypoglycemia Protocol Dextrose 1,000 mls @ 100 mls/hr 09/20/19 02:56 Dextrose 5% 1,000 Ml IVPB PRN PRN Hypoglycemia Protocol Insulin Aspart 3 - 6 units 09/20/19 08:00 09/22/19 12:35 Novolog SUB-Q Not Given TIDWM [facility] Protocol Insulin Glargine 15 units 09/20/19 09:00 09/22/19 08:47 Lantus SUB-Q 15 units BID KATHRIN Administration Isosorbide Mononitrate 30 mg 09/20/19 09:00 09/22/19 08:50 Imdur PO 30 mg DAILY KATHRIN Administration Levetiracetam 500 mg 09/20/19 09:00 09/22/19 08:48 Keppra Tablet PO 500 mg BID KATHRIN Administration Magnesium Oxide 400 mg 09/20/19 09:00 09/22/19 08:50 Mag-Ox PO 400 mg Q48H KATHRIN Administration Metoprolol Tartrate 12.5 mg 09/20/19 09:00 09/22/19 08:50 Lopressor PO 12.5 mg BID [facility] Administration Miconazole Nitrate 1 applic 09/20/19 09:00 09/22/19 08:59 Aloe [place] TOPICAL 1 applic Q12HR KATHRIN Administration Multi-Ingred Cream/Lotion/Oil/Oint 1 appli
--- NOTE | 2019-09-22 15:53 | PM.IMPN ---
Progress Note: A&P Assessment and Plan (1) Wound, open, toe with complication: Code(s): S91.109A - Unspecified open wound of unspecified toe(s) without damage to nail, initial encounter Status: Chronic Assessment and Plan: ------The patient appears to have a chronic wound on the toe of her left foot but it doesn't appear to be acutely infected. WBC WNL. CRP midly elevated. procalcitonin pending. Will continue ceftriaxone. Blood culture positive as stated below. Plan to redo blood cultures. I believe the pt will discharge to home health once appropriate. (2) Eschar of toe: Code(s): R23.4 - Changes in skin texture Status: Chronic Assessment and Plan: -----see above. xray neg for osteomyelititis. (3) CKD stage 3 due to type 1 diabetes mellitus: Code(s): E10.22 - Type 1 diabetes mellitus with diabetic chronic kidney disease; N18.3 - Chronic kidney disease, stage 3 (moderate) Status: Acute Assessment and Plan: -----Cr appears to be at baseline. Monitor renal function. Avoid nephrotoxic agents. Renally dose medications. Pt son states they give her lasix a couple of times a week which helps the swelling. (4) Type 1 diabetes: Qualifiers: Diabetes mellitus complication status: with circulatory complication Diabetes mellitus complication detail: with other circulatory complications Qualified Code(s): E10.59 - Type 1 diabetes mellitus with other circulatory complications Code(s): E10.9 - Type 1 diabetes mellitus without complications Status: Chronic Assessment and Plan: -----Last glucose 103 but does run high. Her a1c is 9.0. She takes lantus and SSI at home. Max rapid insulin given according to the son is 6u. Continue accuchecks, SSI Coverage, Continue lantus insulin. hypoglycemic protocol. (5) HTN (hypertension): Qualifiers: Hypertension type: essential hypertension Qualified Code(s): I10 - Essential (primary) hypertension Code(s): I10 - Essential (primary) hypertension Status: Chronic Assessment and Plan: -----Last glucose 114/56. Continue metoprolol and amlodipine. (6) Seizure disorder: Code(s): G40.909 - Epilepsy, unspecified, not intractable, without status epilepticus Status: Chronic Assessment and Plan: -----Continue Keppra. (7) CHF (congestive heart failure): Qualifiers: Heart failure type: unspecified Heart failure chronicity: chronic Qualified Code(s): I50.9 - Heart failure, unspecified Code(s): I50.9 - Heart failure, unspecified Status: Chronic Assessment and Plan: -----Pt does have some fluid on her LE but she says its about normal. Cr a little elevated but at baseline. Monitor fluid status. She takes lasix PRN as did receive it the last few days. Will give another oral dose. (8) Positive blood culture: Code(s): R78.81 - Bacteremia Status: Acute Assessment and Plan: -----one bottle is positive for streptococcus mitis but now another organism is growing which is gram + bacilli. this raises concern for contaminate. Will await the identification of the 2nd organism. New blood cultures are being drawn. Infx source likely mouth as she has poor dentation. Consider contamination as well. Pt is immunosupressed. (9) Peripheral vascular disease: Code(s): I73.9 - Peripheral vascular disease, unspecified Status: Acute Assessment and Plan: -----plan to follow-up with a vascular surgeon. I have sent records to their office to help facilitate them obtaining an appointment (10) Immunosuppression due to drug therapy: Code(s): Z79.899 - Other half-way (current) drug therapy Status: Acute Assessment and Plan: -----see above. (11) Kidney transplant recipient: Code(s): Z94.0 - Kidney transplant status Status: Acute Assessment and Plan
[2019-09-22 17:21] LABS: Glucose Point of Care 103 (65-105)
[2019-09-22 20:00] VITALS: PULSE 65; RESP 16; O2SAT 100
[2019-09-22] MEDS: ATORVASTATIN 40 MG TABLET PO (21:11)
[2019-09-22] MEDS: NITROFURANTOIN MONOHYD MACROCR 100 MG CAP PO (21:11)
[2019-09-22] MEDS: AMLODIPINE BESYLATE 5 MG TABLET PO (21:11)
--- NOTE | 2019-09-22 21:20 | PC.NURSE ---
PT IS VERY CONFUSED AND REFUSING ALL TREATMENT. CALLED HER SON TO HELP CALM HER DOWN HE IS ON HIS WAY IN. WILL ATTEMPT TO TRY AGAIN AFTER HE GETS HERE.
[2019-09-22 21:54] VITALS: BP 136/67
[2019-09-22 22:00] VITALS: BP 136/67
[2019-09-23 06:00] VITALS: BP 140/75; PULSE 62; RESP 16; TEMP 35.7; O2SAT 100
[2019-09-23 07:05] LABS: Blood Urea Nitrogen 54 mg/dL (7-17); Calcium 8.6 mg/dL (8.4-10.2); Carbon Dioxide 20 mmol/L (22-30); Chloride 105 mmol/L (98-107); Estimated CRCL calculation 34 ml/min; Estimated Glomerular Filt Rate 32; Glucose 78 mg/dL (65-105); Potassium 4.3 mmol/L (3.4-5.0); Sodium 137 mmol/L (137-145)
[2019-09-23 08:47] LABS: Glucose Point of Care 83 (65-105)
[2019-09-23] MEDS: ASPIRIN 81 MG ENTERIC TABLET PO (09:39)
[2019-09-23] MEDS: CLONIDINE HCL 0.2 MG TABLET PO ×3 (09:39→16:54)
[2019-09-23] MEDS: allopurinoL 100 MG TABLET PO (09:39)
[2019-09-23] MEDS: CYANOCOBALAMIN 1,000 MCG TABLET 1000 MCG PO (09:39)
[2019-09-23] MEDS: CLOPIDOGREL BISULFATE 75 MG TABLET PO (09:39)
[2019-09-23] MEDS: predniSONE 5 MG TABLET PO (09:39)
[2019-09-23] MEDS: ISOSORBIDE MONONITRATE 30 MG TAB.ER.24H PO (09:40)
[2019-09-23] MEDS: FOLIC ACID 1 MG TABLET PO (09:40)
[2019-09-23] MEDS: FUROSEMIDE 40 MG TABLET PO (09:40)
[2019-09-23 09:41] VITALS: PULSE 78
[2019-09-23] MEDS: METOPROLOL TARTRATE 12.5 MG TABLET PO ×2 (09:41→16:54)
[2019-09-23] MEDS: levETIRAcetam 500 MG TABLET PO ×2 (09:41→16:54)
[2019-09-23] MEDS: TAMSULOSIN HCL 0.4 MG CAPSULE PO (09:42)
[2019-09-23] MEDS: SILVERGEL (ELTA) 45 ML 1 APPLIC TOPICAL (09:42)
[2019-09-23] MEDS: PANTOPRAZOLE 40 MG TABLET PO ×2 (09:42→16:54)
[2019-09-23] MEDS: mycophenolate mofetiL 250 MG CAPSULE PO ×2 (09:42→16:54)
[2019-09-23] MEDS: EUCERIN CREAM 120 GM JAR 1 APPLIC TOPICAL ×2 (09:43→16:54)
[2019-09-23] MEDS: INSULIN GLARGINE (*BKC) 100 UNITS/ML 10 UNITS SUB-Q ×2 (09:51→16:56)
[2019-09-23 12:35] LABS: Glucose Point of Care 90 (65-105)
--- NOTE | 2019-09-23 13:30 | WPDINFPN2 ---
Progress Note: A&P Assessment and Plan (1) Positive blood culture: Code(s): R78.81 - Bacteremia Status: Acute Assessment and Plan: 1. S mitis bacteremia, suspect transient infection from oral source. 2. Renal transplant with immune suppression. Mild azotemia currently, and I think cephalexin needs minor dose adjustment as a result 3. PCN allergy, tolerates cephalosporin REC Ctx #2 (antibiotic # 4) continue. If new BCs remain ng by Thursday AM 09/25, then ok with me for cephalexin 1 gram po tid x 8 days, and ok for discharge at that time. Subjective Date/time seen: 09/23/19 13:30 Interval history: no complaints, in good spirits Exam Narrative: Exam Narrative: afebrile, temperature readings generally in 36 range, single low temp but she does not have ongoing hypothermia Const: General: no acute distress Eyes: General: appearance normal, both eyes and all related structures Resp: Effort & Inspection: normal respiratory effort Auscultation: clear to auscultation bilaterally Cardio: Rate: regular rate Rhythm: regular rhythm Heart sounds: no gallops and no murmurs GI: Inspection: non-distended GI Palp: Yes Soft to palpation, No Tenderness to palpation present (GI) and No Guarding due to palpation present (GI) Skin: General skin exam: no rashes or lesions noted Other: mild pallor Objective Data Vital Signs Vital Signs: Vital Signs - 24 hr 09/22/19 14:00 09/22/19 20:00 09/22/19 21:54 Temperature 36.6 C Pulse Rate 65 65 Respiratory Rate 16 16 Blood Pressure 114/56 L 136/67 Pulse Oximetry 100 100 09/22/19 22:00 09/23/19 06:00 09/23/19 09:41 Temperature 35.7 C L Pulse Rate 62 78 Respiratory Rate 16 Blood Pressure 136/67 140/75 Pulse Oximetry 100 Intake/Output Intake/Output: Intake & Output 09/20/19 09/21/19 09/22/19 09/23/19 23:59 23:59 23:59 23:59 Intake Total 1720 2040 1730 780 Balance 1720 2040 1730 780 Meds/Results Medications: Active Medications Generic Name Dose Route Start Last Admin Trade Name Freq PRN Reason Stop Dose Admin Allopurinol 100 mg 09/20/19 08:00 09/23/19 09:39 Zyloprim PO 100 mg DAILY@0800 KATHRIN Administration Amlodipine Besylate 5 mg 09/20/19 21:00 09/22/19 21:11 Norvasc PO 5 mg HS KATHRIN Administration Aspirin 81 mg 09/20/19 09:00 09/23/19 09:39 Aspirin Ec PO 81 mg DAILY KATHRIN Administration Atorvastatin Calcium 40 mg 09/20/19 21:00 09/22/19 21:11 Lipitor PO 40 mg Q48H KATHRIN Administration Clonidine HCl 0.2 mg 09/20/19 09:00 09/23/19 12:40 Catapres PO 0.2 mg TID KATHRIN Administration Clopidogrel Bisulfate 75 mg 09/20/19 09:00 09/23/19 09:39 Plavix PO 75 mg DAILY KATHRIN Administration Cyanocobalamin 1,000 mcg 09/21/19 09:00 09/23/19 09:39 Vitamin B-12 Tab PO 1,000 mcg MoWeFr@0900 KATHRIN Administration Cyclosporine 50 mg 09/20/19 09:00 09/23/19 09:40 Neoral Capsule PO 50 mg Q12HR KATHRIN Administration Dextrose 12.5 gm 09/20/19 02:56 Dextrose 50% Syringe IV PUSH PRN PRN Hypoglycemia Protocol Ergocalciferol 50,000 unit 09/26/19 09:00 Drisdol PO Mo@0900 [facility] Folic Acid 1 mg 09/20/19 09:00 09/23/19 09:40 Folic Acid PO 1 mg DAILY KATHRIN Administration Furosemide 40 mg 09/23/19 09:00 09/23/19 09:40 Lasix Tablet PO 40 mg DAILY KATHRIN Administration Glucagon 1 mg 09/20/19 02:56 Glucagon For Inj IM PRN PRN Hypoglycemia Protocol Glucose 15 gm 09/20/19 02:56 Glutose 15 PO PRN PRN Hypoglycemia Protocol Dextrose 1,000 mls @ 100 mls/hr 09/20/19 02:56 Dextrose 5% 1,000 Ml IVPB PRN PRN Hypoglycemia Protocol Ceftriaxone Sodium/Dextrose 1 gm in 50 mls @ 100 mls/hr 09/22/19 15:00 09/22/19 15:50 Rocephin 1 Gm/D5w 50 Ml IVPB Infused Q24H KATHRIN Infusion Insulin Aspart 3 - 6 units 09/20/19 08:00 09/23/19 12:25 Novolog SUB-Q Not Given TIDWM KATHRIN
[2019-09-23 14:00] VITALS: BP 100/42; PULSE 60; RESP 16; TEMP 36.2; O2SAT 100
--- NOTE | 2019-09-23 16:04 | PM.IMPN ---
Progress Note: A&P Assessment and Plan (1) Wound, open, toe with complication: Code(s): S91.109A - Unspecified open wound of unspecified toe(s) without damage to nail, initial encounter Status: Chronic Assessment and Plan: ------The patient appears to have a chronic wound on the toe of her left foot but it doesn't appear to be acutely infected. WBC WNL. CRP midly elevated. procalcitonin pending. Will continue ceftriaxone. Blood culture positive as stated below. I believe the pt will discharge to home health once appropriate likely thursday on oral abx. (2) Eschar of toe: Code(s): R23.4 - Changes in skin texture Status: Chronic Assessment and Plan: -----see above. xray neg for osteomyelititis. (3) CKD stage 3 due to type 1 diabetes mellitus: Code(s): E10.22 - Type 1 diabetes mellitus with diabetic chronic kidney disease; N18.3 - Chronic kidney disease, stage 3 (moderate) Status: Acute Assessment and Plan: -----Cr appears to be at baseline. Monitor renal function. Avoid nephrotoxic agents. Renally dose medications. Pt son states they give her lasix a couple of times a week which helps the swelling. (4) Type 1 diabetes: Qualifiers: Diabetes mellitus complication status: with circulatory complication Diabetes mellitus complication detail: with other circulatory complications Qualified Code(s): E10.59 - Type 1 diabetes mellitus with other circulatory complications Code(s): E10.9 - Type 1 diabetes mellitus without complications Status: Chronic Assessment and Plan: -----Last glucose 90 but does run high. Her a1c is 9.0. She takes lantus and SSI at home. Max rapid insulin given according to the son is 6u. Continue accuchecks, SSI Coverage, Continue lantus insulin but dose decreased today. hypoglycemic protocol. (5) HTN (hypertension): Qualifiers: Hypertension type: essential hypertension Qualified Code(s): I10 - Essential (primary) hypertension Code(s): I10 - Essential (primary) hypertension Status: Chronic Assessment and Plan: -----Last glucose 100/42 Continue metoprolol and amlodipine. (6) Seizure disorder: Code(s): G40.909 - Epilepsy, unspecified, not intractable, without status epilepticus Status: Chronic Assessment and Plan: -----Continue Keppra. (7) CHF (congestive heart failure): Qualifiers: Heart failure type: unspecified Heart failure chronicity: chronic Qualified Code(s): I50.9 - Heart failure, unspecified Code(s): I50.9 - Heart failure, unspecified Status: Chronic Assessment and Plan: -----Pt does have some fluid on her LE but she says its about normal. Cr a little elevated but at baseline. Monitor fluid status. She takes lasix PRN as did receive it the last few days. continue w/ oral lasix (8) Positive blood culture: Code(s): R78.81 - Bacteremia Status: Acute Assessment and Plan: -----one bottle is positive for streptococcus mitis but now another organism is growing which is gram + bacilli--still not identified. this raises concern for contaminate. Will await the identification of the 2nd organism. New blood cultures are pending. Infx source likely mouth as she has poor dentition. Consider contamination as well. Pt is immunosupressed. (9) Peripheral vascular disease: Code(s): I73.9 - Peripheral vascular disease, unspecified Status: Acute Assessment and Plan: -----plan to follow-up with a vascular surgeon. I have sent records to their office to help facilitate them obtaining an appointment (10) Immunosuppression due to drug therapy: Code(s): Z79.899 - Other mcc (current) drug therapy Status: Acute Assessment and Plan: -----see above. (11) Kidney transplant recipient: Code(s): Z94.0 - Kidney transplant status Status:
[2019-09-23 16:27] LABS: Glucose Point of Care 127 (65-105)
[2019-09-23 16:54] VITALS: PULSE 76
[2019-09-23] MEDS: AMLODIPINE BESYLATE 5 MG TABLET PO (21:03)
[2019-09-23] MEDS: NITROFURANTOIN MONOHYD MACROCR 100 MG CAP PO (21:03)
[2019-09-23 21:15] LABS: Glucose Point of Care 109 (65-105)
[2019-09-23 22:00] VITALS: BP 115/59; PULSE 57; RESP 16; TEMP 36; O2SAT 99
[2019-09-24] MEDS: GLUCOSE ORAL GEL 15 GM OF GLUCSE IN 37.5 GM TUBE PO (02:30)
[2019-09-24 02:42] LABS: Glucose Point of Care 39 (65-105)
[2019-09-24 02:52] LABS: Glucose Point of Care 74 (65-105)
[2019-09-24 05:36] LABS: Glucose Point of Care 129 (65-105)
[2019-09-24 06:00] VITALS: BP 112/58; PULSE 64; RESP 16; TEMP 36.2; O2SAT 97
[2019-09-24 07:13] LABS: Blood Urea Nitrogen 59 mg/dL (7-17); Calcium 8.9 mg/dL (8.4-10.2); Carbon Dioxide 20 mmol/L (22-30); Chloride 104 mmol/L (98-107); Estimated CRCL calculation 32 ml/min; Estimated Glomerular Filt Rate 30; Glucose 121 mg/dL (65-105); Sodium 138 mmol/L (137-145)
[2019-09-24 08:23] LABS: Hematocrit 32.6 % (37.0-47.0); Hemoglobin 10.8 g/dL (12.0-15.0); Mean Corpuscular HGB Conc 33.1 g/dl (32-36); Mean Corpuscular Hemoglobin 29.7 pg (26-34); Mean Corpuscular Volume 89.6 fl (80-100); Mean Platelet Volume 9.8 fl (7.4-10.4); Platelet Count Result 348 k/mm3 (150-375); Red Blood Count 3.64 M/mm3 (4.2-5.4); Red Cell Distribution Width 14.4 % (11.5-14.5); White Blood Count 13.3 K/mm3 (4.5-10.0)
[2019-09-24] MEDS: allopurinoL 100 MG TABLET PO (09:28)
[2019-09-24] MEDS: predniSONE 5 MG TABLET PO (09:28)
[2019-09-24] MEDS: MAGNESIUM OXIDE 400 MG TABLET PO (09:29)
[2019-09-24] MEDS: FOLIC ACID 1 MG TABLET PO (09:29)
[2019-09-24] MEDS: CLOPIDOGREL BISULFATE 75 MG TABLET PO (09:29)
[2019-09-24] MEDS: CLONIDINE HCL 0.2 MG TABLET PO ×3 (09:29→16:47)
[2019-09-24] MEDS: FUROSEMIDE 40 MG TABLET PO (09:29)
[2019-09-24] MEDS: ASPIRIN 81 MG ENTERIC TABLET PO (09:29)
[2019-09-24 09:30] VITALS: PULSE 82
[2019-09-24] MEDS: levETIRAcetam 500 MG TABLET PO ×2 (09:30→16:48)
[2019-09-24] MEDS: ISOSORBIDE MONONITRATE 30 MG TAB.ER.24H PO (09:30)
[2019-09-24] MEDS: mycophenolate mofetiL 250 MG CAPSULE PO ×2 (09:30→16:48)
[2019-09-24] MEDS: PANTOPRAZOLE 40 MG TABLET PO ×2 (09:30→16:49)
[2019-09-24] MEDS: METOPROLOL TARTRATE 12.5 MG TABLET PO ×2 (09:30→16:49)
[2019-09-24] MEDS: SILVERGEL (ELTA) 45 ML 1 APPLIC TOPICAL (09:31)
[2019-09-24] MEDS: EUCERIN CREAM 120 GM JAR 1 APPLIC TOPICAL ×2 (09:31→16:50)
[2019-09-24] MEDS: TAMSULOSIN HCL 0.4 MG CAPSULE PO (09:31)
[2019-09-24 09:42] LABS: Glucose Point of Care 84 (65-105)
[2019-09-24 12:13] LABS: Glucose Point of Care 85 (65-105)
--- NOTE | 2019-09-24 13:41 | PM.IMPN ---
Progress Note: A&P Assessment and Plan (1) Wound, open, toe with complication: Code(s): S91.109A - Unspecified open wound of unspecified toe(s) without damage to nail, initial encounter Status: Chronic Assessment and Plan: ------The patient appears to have a chronic wound on the toe of her left foot but it doesn't appear to be acutely infected. WBC a little more elevated today 13.3 but pt improving clinically. CRP midly elevated. procalcitonin slightly elevated. Will continue ceftriaxone. Blood culture positive as stated below. I believe the pt will discharge to home health once appropriate likely thursday on oral abx. (2) Eschar of toe: Code(s): R23.4 - Changes in skin texture Status: Chronic Assessment and Plan: -----see above. xray neg for osteomyelititis. (3) CKD stage 3 due to type 1 diabetes mellitus: Code(s): E10.22 - Type 1 diabetes mellitus with diabetic chronic kidney disease; N18.3 - Chronic kidney disease, stage 3 (moderate) Status: Acute Assessment and Plan: -----Cr appears to be at baseline. Monitor renal function. Avoid nephrotoxic agents. Renally dose medications. Pt son states they give her lasix a couple of times a week which helps the swelling. (4) Type 1 diabetes: Qualifiers: Diabetes mellitus complication status: with circulatory complication Diabetes mellitus complication detail: with other circulatory complications Qualified Code(s): E10.59 - Type 1 diabetes mellitus with other circulatory complications Code(s): E10.9 - Type 1 diabetes mellitus without complications Status: Chronic Assessment and Plan: -----Last glucose 85. Her a1c is 9.0. I believe her diet is significantly different here when compared to at home which is why her glucose has been normal and, at times, low. She takes lantus and SSI at home. Max rapid insulin given according to the son is 6u. Continue accuchecks, SSI Coverage, but will hold lantus. (5) HTN (hypertension): Qualifiers: Hypertension type: essential hypertension Qualified Code(s): I10 - Essential (primary) hypertension Code(s): I10 - Essential (primary) hypertension Status: Chronic Assessment and Plan: -----Last glucose 112/58. Continue metoprolol and amlodipine. (6) Seizure disorder: Code(s): G40.909 - Epilepsy, unspecified, not intractable, without status epilepticus Status: Chronic Assessment and Plan: -----Continue Keppra. (7) CHF (congestive heart failure): Qualifiers: Heart failure type: unspecified Heart failure chronicity: chronic Qualified Code(s): I50.9 - Heart failure, unspecified Code(s): I50.9 - Heart failure, unspecified Status: Chronic Assessment and Plan: -----Pt does have some fluid on her LE but she says its about normal and actually looks improved today. Cr a little elevated but at baseline. Monitor fluid status. She takes lasix PRN as did receive it the last few days. continue w/ oral lasix (8) Positive blood culture: Code(s): R78.81 - Bacteremia Status: Acute Assessment and Plan: -----one bottle is positive for streptococcus mitis but now another organism is growing which is gram + bacilli--still not identified. I have asked the nursing staff to call [facility] to have them re fax the information. Sona is working on that. Two organisms in one bottle raises concern for contaminate. Will await the identification of the 2nd organism. New blood cultures have NGTD but WBC increased a bit today. Infx source likely mouth as she has poor dentition. Consider contamination as well. Pt is immunosupressed. (9) Peripheral vascular disease: Code(s): I73.9 - Peripheral vascular disease, unspecified Status: Acute Assessment and Plan: -----plan to follow-up with a vascular surgeon. I have sent records to their office to hel
[2019-09-24 14:00] VITALS: BP 107/53; PULSE 63; RESP 16; TEMP 36.2; O2SAT 96
[2019-09-24 16:49] VITALS: PULSE 80
[2019-09-24 18:13] LABS: Glucose Point of Care 131 (65-105)
[2019-09-24] MEDS: ATORVASTATIN 40 MG TABLET PO (20:57)
[2019-09-24] MEDS: NITROFURANTOIN MONOHYD MACROCR 100 MG CAP PO (20:57)
[2019-09-24] MEDS: AMLODIPINE BESYLATE 5 MG TABLET PO (20:58)
[2019-09-24 21:48] LABS: Glucose Point of Care 245 (65-105)
[2019-09-24 22:00] VITALS: BP 100/76; PULSE 66; RESP 18; TEMP 36; O2SAT 98
[2019-09-25 05:36] LABS: Hematocrit 33.8 % (37.0-47.0); Hemoglobin 10.8 g/dL (12.0-15.0); Mean Corpuscular Hemoglobin 29.5 pg (26-34); Mean Corpuscular Volume 92.3 fl (80-100); Mean Platelet Volume 9.6 fl (7.4-10.4); Platelet Count Result 391 k/mm3 (150-375); Red Blood Count 3.66 M/mm3 (4.2-5.4); Red Cell Distribution Width 14.4 % (11.5-14.5); White Blood Count 10.2 K/mm3 (4.5-10.0)
[2019-09-25 05:56] LABS: Blood Urea Nitrogen 60 mg/dL (7-17); Calcium 8.8 mg/dL (8.4-10.2); Carbon Dioxide 25 mmol/L (22-30); Chloride 101 mmol/L (98-107); Estimated CRCL calculation 32 ml/min; Estimated Glomerular Filt Rate 30; Glucose 203 mg/dL (65-105); Sodium 137 mmol/L (137-145)
[2019-09-25 06:00] VITALS: BP 133/83; PULSE 60; RESP 18; TEMP 36.2; O2SAT 96
[2019-09-25 07:26] LABS: Glucose Point of Care 197 (65-105)
[2019-09-25 08:56] VITALS: PULSE 63
[2019-09-25] MEDS: CLONIDINE HCL 0.2 MG TABLET PO ×2 (08:56→12:12)
[2019-09-25] MEDS: ASPIRIN 81 MG ENTERIC TABLET PO (08:56)
[2019-09-25] MEDS: METOPROLOL TARTRATE 12.5 MG TABLET PO (08:56)
[2019-09-25] MEDS: ISOSORBIDE MONONITRATE 30 MG TAB.ER.24H PO (08:59)
[2019-09-25] MEDS: TAMSULOSIN HCL 0.4 MG CAPSULE PO (08:59)
[2019-09-25] MEDS: levETIRAcetam 500 MG TABLET PO (08:59)
[2019-09-25] MEDS: FOLIC ACID 1 MG TABLET PO (08:59)
[2019-09-25] MEDS: predniSONE 5 MG TABLET PO (08:59)
[2019-09-25] MEDS: polyethylene glycoL 3350 17 GM POWD.PACK PO (08:59)
[2019-09-25] MEDS: CLOPIDOGREL BISULFATE 75 MG TABLET PO (08:59)
[2019-09-25] MEDS: allopurinoL 100 MG TABLET PO (08:59)
[2019-09-25] MEDS: mycophenolate mofetiL 250 MG CAPSULE PO (08:59)
[2019-09-25] MEDS: PANTOPRAZOLE 40 MG TABLET PO (08:59)
[2019-09-25] MEDS: FUROSEMIDE 40 MG TABLET PO (08:59)
[2019-09-25] MEDS: SILVERGEL (ELTA) 45 ML 1 APPLIC TOPICAL (09:00)
[2019-09-25] MEDS: EUCERIN CREAM 120 GM JAR 1 APPLIC TOPICAL (09:01)
--- NOTE | 2019-09-25 11:28 | PM.DS ---
DS: Diagnosis Admitting Diagnosis Admitting Diagnosis: Unspecified open wound of unspecified toe(s) without damage to nail, initial encounter Discharge Diagnosis (1) Wound, open, toe with complication: Code(s): S91.109A - Unspecified open wound of unspecified toe(s) without damage to nail, initial encounter Status: Chronic Assessment and Plan: ------The patient appears to have a chronic wound on the toe of her left foot but it doesn't appear to be acutely infected. WBC 10.2 at discharge. CRP midly elevated 1.3. procalcitonin slightly elevated. Pt received 7 days of abx and will receive 8 more days of oral. She is immunosupressed. 1/4 of blood cultures + for streptococcus mitis and diphtheroids. (2) Eschar of toe: Code(s): R23.4 - Changes in skin texture Status: Chronic Assessment and Plan: -----see above. xray neg for osteomyelititis. (3) CKD stage 3 due to type 1 diabetes mellitus: Code(s): E10.22 - Type 1 diabetes mellitus with diabetic chronic kidney disease; N18.3 - Chronic kidney disease, stage 3 (moderate) Status: Acute Assessment and Plan: -----Cr appears to be at baseline. Monitor renal function. Pt son states they give her lasix a couple of times a week which helps the swelling. (4) Type 1 diabetes: Qualifiers: Diabetes mellitus complication status: with circulatory complication Diabetes mellitus complication detail: with other circulatory complications Qualified Code(s): E10.59 - Type 1 diabetes mellitus with other circulatory complications Code(s): E10.9 - Type 1 diabetes mellitus without complications Status: Chronic Assessment and Plan: -----Last glucose 173. Her a1c is 9.0. I believe her diet is significantly different here when compared to at home which is why her glucose has been normal and, at times, low. She takes lantus and SSI at home. Max rapid insulin given according to the son is 6u. Continue accuchecks, SSI Coverage, but will hold lantus. (5) HTN (hypertension): Qualifiers: Hypertension type: essential hypertension Qualified Code(s): I10 - Essential (primary) hypertension Code(s): I10 - Essential (primary) hypertension Status: Chronic Assessment and Plan: -----Last bp 133/83. Continue metoprolol and amlodipine. (6) Seizure disorder: Code(s): G40.909 - Epilepsy, unspecified, not intractable, without status epilepticus Status: Chronic Assessment and Plan: -----Continue Keppra. (7) CHF (congestive heart failure): Qualifiers: Heart failure type: unspecified Heart failure chronicity: chronic Qualified Code(s): I50.9 - Heart failure, unspecified Code(s): I50.9 - Heart failure, unspecified Status: Chronic Assessment and Plan: -----Pt does have some fluid on her LE but she says its about normal and actually looks improved today. She takes lasix PRN as did receive it the last few days. continue w/ oral lasix (8) Positive blood culture: Code(s): R78.81 - Bacteremia Status: Acute Assessment and Plan: -----one bottle (out of 4) is positive for streptococcus mitis and diphtheroids. Two organisms in one bottle raises concern for contaminate. Will await the identification of the 2nd organism. New blood cultures were negative. Infx source likely mouth as she has poor dentition. Consider contamination as well. Pt is immunosupressed. (9) Peripheral vascular disease: Code(s): I73.9 - Peripheral vascular disease, unspecified Status: Acute Assessment and Plan: -----plan to follow-up with a vascular surgeon. I have sent records to their office to help facilitate them obtaining an appointment (10) Immunosuppression due to drug therapy: Code(s): Z79.899 - Other detention (current) drug therapy Status: Acute Assessment and Plan: -----see
[2019-09-25 12:20] LABS: Glucose Point of Care 173 (65-105)
--- NOTE | 2019-09-30 13:32 | PC.NURSE ---
Blood cx 2nd set are negative.
== END 2019-09-25 13:26 | disposition home health service (06) | DRG 605 ==
LOC: ANHED 16:52 → ANH2MED 17:33
PROVIDERS: Family Medicine; Physician Assistant; Admitting Provider Internal Medicine; Emergency Provider Emergency Medicine; PCP Family Medicine; Visit Provider Family Medicine
DX: S91.105A Unspecified open wound of left lesser toe(s) without damage to nail, initial encounter (principal); R78.81 Bacteremia; Z94.0 Kidney transplant status; I13.0 Hypertensive heart and chronic kidney disease with heart failure and stage 1 through stage 4 chronic kidney disease, or unspecified chronic kidney disease; B95.4 Other streptococcus as the cause of diseases classified elsewhere; E10.22 Type 1 diabetes mellitus with diabetic chronic kidney disease; N18.3 Chronic kidney disease, stage 3 (moderate); I50.9 Heart failure, unspecified; E10.42 Type 1 diabetes mellitus with diabetic polyneuropathy; E10.51 Type 1 diabetes mellitus with diabetic peripheral angiopathy without gangrene; I73.9 Peripheral vascular disease, unspecified; R23.4 Changes in skin texture; G40.909 Epilepsy, unspecified, not intractable, without status epilepticus; K21.9 Gastro-esophageal reflux disease without esophagitis; E78.5 Hyperlipidemia, unspecified; E87.5 Hyperkalemia; G47.33 Obstructive sleep apnea (adult) (pediatric); D64.9 Anemia, unspecified; Z86.73 Personal history of transient ischemic attack (TIA), and cerebral infarction without residual deficits; Z79.02 Long term (current) use of antithrombotics/antiplatelets; Z89.511 Acquired absence of right leg below knee
CPT/HCPCS: 36415; 73630; 80048; 80053; 83036; 83605; 84145; 85025; 85027; 85610; 85730; 86140; 87040; 87077; 87186; 93923; 96361; 96365; 96366; 96367; 99285; A9270; G0378; J0696; J0743; J1815; J1940; J3370; J7120; J7512; J7515; J7517

== ENCOUNTER 2020-01-07 07:39 | Inpatient (IN) | payer MEDICARE, OTHER, SELFPAY ==
[2020-01-07] VITALS (16 sets, daily range): BP systolic 87–152; BP diastolic 41–78; PULSE 64–93; RESP 16–20; TEMP 35.8–37; O2SAT 96–100; BMI 35.6
--- NOTE | ~2020-01-07 | US_ITS ---
EXAMINATION: US renal BI EXAM DATE: 01/10/2020 15:21 INDICATION: Creatinine. TECHNIQUE: Multiple grayscale and Doppler images of the kidneys were obtained (by a technologist who performed the scan) and subsequently reviewed. Comparison is made to prior examination from 11/16/2015. FINDINGS: Right kidney: Notation made that the right table [place] kidney was not visualized in expected location, was identified in the pelvis, either congenital pelvic location or pelvic transplant kidney. This was vi sualized measuring 6.7 x 3.3 x 3.7 cm, moderately atrophic without hydronephrosis. Left kidney: This kidney also not identified in expected location, could be transplant, more normal i n size but with large fatty hilum. It measures 10.6 x 5.7 x 3.9 centimeters. There is no hydronephr osis. Bladder unremarkable. IMPRESSION: 2 kidneys in pelvic location, moderate atrophy on the right and on the left normal size b ut renal cortical thinning. No hydronephrosis. Reviewed, dictated and finalized at location A. IMPRESSION: 2 kidneys in pelvic location, moderate atrophy on the right and on the left normal size but renal cortical thinning. No hydronephrosis.
--- NOTE | ~2020-01-07 | XR_ITS ---
XR chest 1V portable 01/13/2020 15:06 Indication: Wheezing. Dyspnea. Procedure: AP portable chest Comparison: Comparison to multiple prior studies sequentially, with oldest reviewed study dated 04/13. Findings: There has been progression of pulmonary edema. There are bilateral pleural effusions. No pn eumothorax. Cardiomegaly. Impression: 1: Interval progression of pulmonary edema/pleural effusions. Reviewed, dictated and finalized at location A. Impression: 1: Interval progression of pulmonary edema/pleural effusions.
--- NOTE | ~2020-01-07 | CT_ITS ---
EXAMINATION: CT abdomen pelvis wo con DATE: 01/07/2020 08:36 INDICATION: Abdominal pain TECHNIQUE: Computed tomography (CT) of the abdomen and pelvis was performed without intravenous contr ast. Automated exposure control and iterative reconstruction technique were employed. Exam dose: 140 5.35 mGy-cm total exam DLP. COMPARISON: 09/26/[address] abdomen pelvis FINDINGS: There is bilateral pleural effusion, mild on the right, moderate on the left, with associat ed compressive atelectasis in the lower lobes, especially on the left. There is mild discoid atelecta sis or scarring at the middle lobe. Multiple healed right rib fractures, especially posterior right seventh through ninth displaced poste rior old healed rib fracture deformities. Cardiomegaly. Extensive coronary artery atherosclerotic calcification. Prominent thoracic aortic calc ification. Calcified primary complex on the left consistent with old pulmonary granulomatous disease. There is severe calcification of the abdominal aorta, celiac, hepatic, splenic, renal and superior an d inferior mesenteric arteries as well as iliac and femoral arteries. There is severe bilateral negative renal atrophy. No [place] renal mass lesion or hydronephrosis. No hepatic space-occupying mass lesion is detected. The gallbladder is present. No bile duct or pancr eatic duct dilatation. No pancreatic mass lesion or pancreatic calcification is evident. Calcified sp lenic granulomas, consistent with old granulomatous disease. Normal morphology of the adrenal glands. The urinary bladder is relatively evacuated, which may account for the diffuse thickening of the urin tavia bladder wall. Cystitis is not excluded. The uterus and adnexal areas are unremarkable. There is extensive atherosclerotic calcification of a transplant right kidney. No arterial calcificat ion is noted in the transplant left kidney. There is some subcutaneous fat stranding of the anterior abdominal wall bilaterally, left greater than right. There are multiple diverticula of the sigmoid colon. There is pericolic increased fat density in the distal sigmoid colon area suggesting possible diverticulitis. There is a prominent amount of fecal material in the colon, consistent with constipation. No bowel wa ll thickening, pneumatosis or intraperitoneal free air is detected. Intramedullary lewis and screw proximal right femur. Diffuse osteopenia. Probable old healed right inferior pubic ramus fracture. Bilateral hip osteoarthritis. IMPRESSION: Sigmoid diverticulosis; pericolic increased fat density in the distal sigmoid area may b e consistent with sigmoid diverticulitis. No abscess or intraperitoneal free air is evident. Constipation Bilateral pleural effusions, left greater than right, as well as atelectasis in the lower lung zones, left greater than right Multiple healed right rib fractures, probable old healed right inferior pubis ramus fracture. Status post ORIF proximal right femur Severe atherosclerotic calcification Severe bilateral [place] renal atrophy Bilateral renal transplants, with extensive arterial calcification of the right transplant Reviewed, dictated and finalized at Location [facility]. Reviewed, dictated and finalized at location A. IMPRESSION: Sigmoid diverticulosis; pericolic increased fat density in the dis hang sigmoid area may be consistent with sigmoid diverticulitis. No abscess or i ntraperitoneal free air is evident. Constipation Bilateral pleural effusions, left greater than right, as well as atelectasis in the lower lung zones, left greater than right Multiple healed right rib fractures, probable old healed right inferior pubis r amus fracture. Status post ORIF
--- NOTE | ~2020-01-07 | CT_ITS ---
EXAMINATION: CT brain wo con DATE: 01/10/2020 12:32 INDICATION: Altered mental status. TECHNIQUE: Computed tomography (CT) of the head was performed without intravenous contrast. The mA wa s adjusted according to patient size. Iterative reconstruction technique was employed. The dose-lengt h product was 605.33 mGy-cm. COMPARISON: Head CT 02/23/2017 FINDINGS: There are old infarcts involving the left frontal, parietal, and occipital lobes in the exp ected distribution of left middle cerebral artery. There are scattered areas of low attenuation in th e cerebral white matter. There is no intracranial hemorrhage, acute infarction, or abnormal intracran ial mass lesion. There is ex vacuo dilatation of left lateral ventricle. There are likely changes of ocular lens replacement surgeries. The paranasal sinuses are clear. There are bilateral otomastoid ef fusions. IMPRESSION: 1. Old infarcts involving the left frontal, parietal, and occipital lobes. 2. Unchanged moderate nonspecific cerebral white matter disease, which likely represents chronic smal l vessel ischemic disease. 3. Chronic bilateral otomastoid effusions. Reviewed, dictated and finalized at location A. IMPRESSION: 1. Old infarcts involving the left frontal, parietal, and occipital lobes. 2. Unchanged moderate nonspecific cerebral white matter disease, which likely r epresents chronic small vessel ischemic disease. 3. Chronic bilateral otomastoid effusions.
--- NOTE | ~2020-01-07 | XR_ITS ---
XR chest 1V portable 01/10/2020 12:00 Indication: Confusion. Stupor. Procedure: AP portable chest Comparison: Comparison to multiple prior studies sequentially, with oldest reviewed study dated 09/02. Findings: Cardiomegaly with interstitial edema. Small pleural effusions, left greater than right. The re is atherosclerosis. No pneumothorax. Impression: 1: Cardiomegaly with progression of interstitial edema. 2: Small pleural effusions, left greater than right. Reviewed, dictated and finalized at location A. Impression: 1: Cardiomegaly with progression of interstitial edema. 2: Small pleural effusions, left greater than right.
--- NOTE | ~2020-01-07 | XR_ITS ---
XR chest 1V portable DATE: 01/08/2020 08:25 INDICATION: Pleural effusions on CT abdomen pelvis examination of 01/07/2020 TECHNIQUE: Portable AP chest on 01/08/2020 at 0825 hours COMPARISON: 01/07/2020 CT abdomen pelvis 07/02/2019 2 view chest FINDINGS: There is mild infiltrate or atelectasis at the right lung base. There is more extensive inf iltrate in the left mid and particularly left lower lung field. There is blunting of the left gastric angle, consistent with mild left pleural effusion. Cardiac megaly. Aortic calcification. There is mild pulmonary vascular congestion and redistribution, mild prominence of the minor fissure, suggesting congestive changes. Diffuse osteopenia. IMPRESSION: Bilateral lung infiltrates, left greater than right Mild left pleural effusion Cardiomegaly, mild congestive changes Reviewed, dictated and finalized at location A.
--- NOTE | 2020-01-07 07:44 | ED.ABDPAIN ---
HPI - Abdominal Pain General Chief Complaint: Abdominal Pain Stated Complaint: abd pain/vomiting Source: RN notes reviewed History of Present Illness HPI narrative: Patient presents emergency department from home for abdominal pain. History is per patient as well as son who is caregiver. The patient is been having issues with constipation for the past few days last night she was given a Dulcolax suppository. This time the patient was complaining of abdominal pain and did have one bowel movement but also had an episode of nausea and vomiting. Per son notes that the patient's abdomen is distended. EMS was called and patient was transported to the emergency department. Patient denies any fevers or chills chest pain or shortness of breath Related Data Home Medications Medication Instructions Recorded Confirmed Lantus U-100 Insulin 12 unit SUBCUT BID 07/02/19 01/07/20 allopurinol 100 mg PO DAILY 07/02/19 01/07/20 amlodipine 5 mg PO HS 07/02/19 01/07/20 aspirin [Adult Low Dose Aspirin] 81 mg PO DAILY 07/02/19 01/07/20 clonidine HCl 0.2 mg PO TID 07/02/19 01/07/20 clopidogrel 75 mg PO DAILY 07/02/19 01/07/20 cyanocobalamin (vitamin B-12) 1,000 mcg PO 3XW 07/02/19 01/07/20 ergocalciferol (vitamin D2) 50,000 unit PO WEEKLY 07/02/19 01/07/20 folic acid 1 mg PO DAILY 07/02/19 01/07/20 furosemide 40 mg PO PRN PRN 07/02/19 01/07/20 levetiracetam 500 mg PO BID 07/02/19 01/07/20 magnesium oxide 400 mg PO EVERY OTHER DAY 07/02/19 01/07/20 metoprolol tartrate 12.5 mg PO BID 07/02/19 01/07/20 mycophenolate mofetil 250 mg PO BID 07/02/19 01/07/20 omeprazole 40 mg PO BID 07/02/19 01/07/20 polyethylene glycol 3350 [Miralax] 17 g PO DAILY 07/02/19 01/07/20 prednisone 5 mg PO DAILY 07/02/19 01/07/20 tamsulosin 0.4 mg PO HS 07/02/19 01/07/20 insulin aspart U-100 [Novolog 1 sliding scale dose SUBCUT 09/20/19 01/07/20 U-100 Insulin aspart] USEASDIRECTD cyclosporine 50 mg PO BID 01/07/20 01/07/20 isosorbide mononitrate 30 mg PO DAILY 01/07/20 01/07/20 pravastatin 10 mg PO HS 01/07/20 01/07/20 Allergies Allergy/AdvReac Type Severity Reaction Status Date / Time gentamicin Allergy Unknown Unknown Verified 01/07/20 12:21 metronidazole Allergy Unknown Unknown Verified 01/07/20 12:21 Penicillins Allergy Unknown Hives Verified 01/07/20 12:21 simvastatin Allergy Unknown Unknown Verified 01/07/20 12:21 Sulfa (Sulfonamide Allergy Unknown Rash Verified 01/07/20 12:21 Antibiotics) losartan Allergy Unknown Verified 01/07/20 12:21 iohexol AdvReac Intermediate Other Verified 01/07/20 12:21 [From CONTRAST - CT, XRAY] Review of Systems Review of Systems: Narrative: Gen.: Denies fevers or chills ENT: Denies congestion Respiratory: Denies shortness of breath or cough CV: Denies chest pain or palpitations GI: See HPI denies burning, urgency, frequency or hematuria Musculoskeletal: Denies back pain or muscle pain Neuro: Denies numbness, tingling, weakness or focal weakness Skin: Denies rash Except as documented, all other systems reviewed and negative PMFSH Past Medical History Medical History Acute respiratory failure BEAU (acute kidney injury) Cataracts, bilateral Cellulitis of toe of left foot CHF (congestive heart failure) Cholecystitis Chronic anemia CKD stage 3 due to type 1 diabetes mellitus Colitis CVA (cerebral vascular accident) Diabetic neuropathy Fecal impaction GERD (gastroesophageal reflux disease) HTN (hypertension) Hyperkalemia Hyperlipidemia Immunosuppression due to drug therapy SRINI (obstructive sleep apnea) Otitis externa Recurrent falls while walking Renal failure Right hemiplegia Seizure disorder Steroid dependent Type 1 diabetes UTI (urinary tract infection) Social History Social History Social History: since 2013. Wheelchair bound. Right BKA. Smoking status: Never smoker Second hand tobacco s
[2020-01-07 08:25] LABS: Basophils Absolute Auto 0.1 K/mm3 (0.0-0.1); Basophils Percent Auto 0.5 % (0.2-1.2); Eosinophils Absolute Auto 0.3 K/mm3 (0-0.3); Eosinophils Percent Auto 3.2 % (0-4.4); Hematocrit 36.7 % (37.0-47.0); Hemoglobin 11.5 g/dL (12.0-15.0); Immature Granulocyte Absolute 0.07 K/mm3 (0.00-0.031); Immature Granulocyte Percent A 0.7 % (0-0.5); Lymphocytes Absolute Auto 1.92 K/mm3 (0.9-3.2); Lymphocytes Percent Auto 18.7 % (18.3-44.2); Mean Corpuscular HGB Conc 31.3 g/dl (32-36); Mean Corpuscular Hemoglobin 29.4 pg (26-34); Mean Corpuscular Volume 93.9 fl (80-100); Mean Platelet Volume 9.6 fl (7.4-10.4); Monocytes Absolute Auto 0.8 K/mm3 (0.1-0.6); Monocytes Percent Auto 7.6 % (2.6-8.5); Neutrophils Absolute Auto 7.1 K/mm3 (1.3-6.7); Neutrophils Percent Auto 69.3 % (45.5-73.1); Platelet Count Result 362 k/mm3 (150-375); Red Blood Count 3.91 M/mm3 (4.2-5.4); Red Cell Distribution Width 15.3 % (11.5-14.5); White Blood Count 10.3 K/mm3 (4.5-10.0)
[2020-01-07 08:37] LABS: Alanine Aminotransferase 16 U/L (4-35); Albumin Level 3.3 g/dL (3.5-5.1); Alkaline Phosphatase 68 U/L (38-126); Aspartate Amino Transferase 26 U/L (14-36); Bilirubin,Total 0.4 mg/dL (0.2-1.3); Blood Urea Nitrogen 43 mg/dL (7-17); Calcium 8.6 mg/dL (8.4-10.2); Carbon Dioxide 21 mmol/L (22-30); Chloride 109 mmol/L (98-107); Estimated Glomerular Filt Rate 28; Glucose 118 mg/dL (65-105); Lipase 24 U/L (23-300); Potassium 4.5 mmol/L (3.4-5.0); Sodium 139 mmol/L (137-145)
[2020-01-07 08:38] LABS: Lactic Acid Reflex 2.4 mmol/L (0.7-2.1)
[2020-01-07 08:39] LABS: Prothrombin Time 13.2 Seconds (11.1-14.7)
[2020-01-07] MEDS: SODIUM CHLORIDE 0.9% IV 1,000 ML 999 ML IV CONT ×2 (08:45→10:31)
[2020-01-07] MEDS: ONDANSETRON INJ 4 MG/2 ML VIAL IV PUSH (08:45)
[2020-01-07 10:10] LABS: Add Urine Microscopic? YES; Appearance Urine Cloudy (Clear); Bacteria Urine 4+ /hpf; Bilirubin Urine Negative (Negative); Blood Urine 1+ (Negative); Color Urine Yellow (Yellow); Glucose Urine UA Negative (Negative); Ketones Urine Negative (Negative); Leukocyte Esterase Ur 3+ LEU/UL (Negative); Mucus Urine Rare /lpf; Nitrate Urine Positive (Negative); Protein Urine 1+ mg/dL (Negative); RBC Urine 21-50 /hpf (0-2); Specific Grav Ur 1.015 (1.001-1.035); WBC Clumps Urine Present /HPF; WBC Urine >75 /hpf
[2020-01-07 11:23] LABS: Reflex Lactic Acid Yes or No Add Lactic
--- NOTE | 2020-01-07 12:00 | ADMGEN ---
This patient, Diana Ott, was admitted to IMU Room 206-02. Patient/family oriented to hospital policies and general routines including ID bracelet, bed and alarms, visiting hours, pain management, procedures, bathroom and other care routines, personal items, smoking policy, room service/diet, and visiting hours. Valuables list has been completed. Information on how to activate the Rapid Response Team has been discussed. Patient/Family are encouraged to report perceived risks to care and to ask questions if they do not understand what they are told or what they should do.
[2020-01-07 12:28] LABS: Glucose Point of Care 78 (65-105)
[2020-01-07] MEDS: SODIUM CHLORIDE 0.9% IV 1,000 ML 100 ML IV CONT (12:54)
--- NOTE | 2020-01-07 15:02 | PM.IMHP ---
H&P: HPI History of Present Illness Chief complaint: sepsis,uti,diverticulitits,nausea and vomiting Narrative: Diana Ott is a 64 year old female who lives with her son. Her son is her primary caregiver. The patient came to the emergency room today from home for complaints of abdominal pain. She has been complaining of constipation for last few days and was given a Dulcolax suppository. The patient is very lethargic but she stated that she took MiraLax as well. She tells me that she did have a bowel movement today. Also the nurse told me that she had a large bowel movement when she came to the floor. Patient had a CT of the abdomen which was read as sigmoid diverticulosis, very colitic increased fat density in the distal sigmoid area may be consistent with sigmoid diverticulitis. No abscess or intraperitoneal free air is evident. Multiple healed right rib fractures, probable old he healed right inferior pubis ramus fracture. Patient was started on Levaquin. Patient has multiple drug allergies. Patient's creatinine is 1.8 her last known creatinine is 1.5. Lactic initially was 2.4 is now 2.2. Patient was given IV fluids, Zofran, Tylenol on started on Levaquin in the emergency room. Date of service is 01/07/2020 Review of Systems Review of Systems: Narrative: Patient stated that she just feels very tired and wants to go to sleep. All systems reviewed & are unremarkable except as noted in HPI and below Constitutional: Constitutional: Reports as per HPI and Reports no additional constitutional complaints Eyes: Eyes: Reports as per HPI and Reports no additional eye complaints ENT: Reports system reviewed and no additional complaints, except as documented and Reports Normal hearing present Cardiovascular: Cardiovascular: Reports no additional cardiovascular complaints Respiratory: Respiratory: Reports no additional respiratory complaints and Reports no additional respiratory complaints Gastrointestinal: Gastrointestinal: Reports as per HPI and Reports no additional gastrointestinal complaints Musculoskeletal: Musculoskeletal: Reports no additional musculoskeletal complaints Integumentary/Breasts: Skin/Breast: Reports system reviewed and no additional complaints, except as docu and Reports as per HPI Neurologic: Reports system reviewed and no additional complaints, except as documented, Reports as per HPI and Reports Normal hearing present Psychiatric: Psychiatric: Reports no additional psychiatric complaints and Reports as per HPI Endocrine: Endocrine: Reports no additional endocrine complaints Hematologic/Lymphatic: Hematologic/Lymphatic: Reports no additional hematologic/lymphatic complaints Allergic/Immunologic: Allergic/Immunologic: Reports no additional allergic/immunologic complaints [facility] Past Medical History Medical History (Updated 01/07/20 @ 15:51 by Chani Puente NP) Acute respiratory failure BEAU (acute kidney injury) Cataracts, bilateral Cellulitis of toe of left foot CHF (congestive heart failure) Systolic with EF of 30%. Cholecystitis Chronic anemia CKD stage 3 due to type 1 diabetes mellitus Colitis CVA (cerebral vascular accident) Diabetic neuropathy Fecal impaction GERD (gastroesophageal reflux disease) History of DVT (deep vein thrombosis) HTN (hypertension) Hyperkalemia Hyperlipidemia Immunosuppression due to drug therapy SRINI (obstructive sleep apnea) Otitis externa Recurrent falls while walking Renal failure Renal transplant disorder 2001 and 2012 Right hemiplegia S/P ORIF (open reduction internal fixation) fracture Right hip Seizure disorder Steroid dependent Type 1 diabetes UTI (urinary tract infection) Surgical History Surgical History (Updated 01/07/20 @ 15:51 by Chani Puente NP) H/O heart artery stent H/O tubal ligation History of appendectomy History of section Hx of BKA Right leg Hx of cardiac cath Hx of cataract surgery Hx of cholecystectomy Kidney t
[2020-01-07 15:05] LABS: Lactic Acid 2.2 mmol/L (0.7-2.1)
[2020-01-07 16:55] LABS: Glucose Point of Care 52 (65-105)
[2020-01-07] MEDS: GLUCOSE ORAL GEL 15 GM OF GLUCSE IN 37.5 GM TUBE PO (16:57)
[2020-01-07] MEDS: DEXTROSE 50% 25 GM/50 ML SYRINGE IV PUSH (17:19)
[2020-01-07 17:20] LABS: Glucose Point of Care 61 (65-105)
[2020-01-07 17:43] LABS: Glucose Point of Care 97 (65-105)
[2020-01-07] MEDS: mycophenolate mofetiL 250 MG CAPSULE PO (17:50)
[2020-01-07] MEDS: PANTOPRAZOLE 40 MG TABLET PO (20:12)
[2020-01-07] MEDS: levETIRAcetam 500 MG TABLET PO (20:12)
[2020-01-07] MEDS: METOPROLOL TARTRATE 12.5 MG TABLET PO (20:12)
[2020-01-07] MEDS: PRAVASTATIN SODIUM 10 MG TABLET PO (20:13)
[2020-01-07] MEDS: TAMSULOSIN HCL 0.4 MG CAPSULE PO (20:13)
[2020-01-07 20:49] LABS: Glucose Point of Care 228 (65-105)
[2020-01-07] MEDS: INSULIN GLARGINE (*BKC) 100 UNITS/ML 6 UNITS SUB-Q (22:12)
[2020-01-08] VITALS (12 sets, daily range): BP systolic 116–144; BP diastolic 64–102; PULSE 70–83; RESP 18–28; TEMP 36.3–37.3; O2SAT 95–99
[2020-01-08] MEDS: SODIUM CHLORIDE 0.9% IV 1,000 ML 75 ML IV CONT ×2 (01:38→15:39)
[2020-01-08 05:10] LABS: Basophils Absolute Auto 0.1 K/mm3 (0.0-0.1); Basophils Percent Auto 0.3 % (0.2-1.2); Eosinophils Absolute Auto 0.2 K/mm3 (0-0.3); Eosinophils Percent Auto 1.1 % (0-4.4); Hematocrit 32.5 % (37.0-47.0); Hemoglobin 10.3 g/dL (12.0-15.0); Immature Granulocyte Absolute 0.16 K/mm3 (0.00-0.031); Immature Granulocyte Percent A 0.8 % (0-0.5); Lymphocytes Absolute Auto 1.08 K/mm3 (0.9-3.2); Lymphocytes Percent Auto 5.7 % (18.3-44.2); Mean Corpuscular HGB Conc 31.7 g/dl (32-36); Mean Corpuscular Hemoglobin 29.9 pg (26-34); Mean Corpuscular Volume 94.5 fl (80-100); Mean Platelet Volume 9.7 fl (7.4-10.4); Monocytes Absolute Auto 1.3 K/mm3 (0.1-0.6); Monocytes Percent Auto 6.9 % (2.6-8.5); Neutrophils Absolute Auto 16.2 K/mm3 (1.3-6.7); Neutrophils Percent Auto 85.2 % (45.5-73.1); Platelet Count Result 313 k/mm3 (150-375); Red Blood Count 3.44 M/mm3 (4.2-5.4); Red Cell Distribution Width 15.5 % (11.5-14.5)
[2020-01-08 05:18] LABS: Hemoglobin A1C 8.5 % (<5.7)
[2020-01-08 05:23] LABS: Alanine Aminotransferase 17 U/L (4-35); Albumin Level 2.8 g/dL (3.5-5.1); Alkaline Phosphatase 46 U/L (38-126); Aspartate Amino Transferase 78 U/L (14-36); Bilirubin,Total 0.6 mg/dL (0.2-1.3); Blood Urea Nitrogen 44 mg/dL (7-17); Calcium 8.2 mg/dL (8.4-10.2); Carbon Dioxide 21 mmol/L (22-30); Chloride 111 mmol/L (98-107); Estimated CRCL calculation 34 ml/min; Estimated Glomerular Filt Rate 30; Glucose 78 mg/dL (65-105); Lactic Acid 1.4 mmol/L (0.7-2.1); Magnesium 1.7 mg/dL (1.6-2.3); Potassium 4.5 mmol/L (3.4-5.0); Sodium 138 mmol/L (137-145)
[2020-01-08 08:58] LABS: Glucose Point of Care 62 (65-105)
[2020-01-08] MEDS: GLUCOSE ORAL GEL 15 GM OF GLUCSE IN 37.5 GM TUBE PO (08:59)
[2020-01-08] MEDS: allopurinoL 100 MG TABLET PO (08:59)
[2020-01-08] MEDS: FOLIC ACID 1 MG TABLET PO (09:00)
[2020-01-08] MEDS: levETIRAcetam 500 MG TABLET PO ×2 (09:00→20:26)
[2020-01-08] MEDS: CLOPIDOGREL BISULFATE 75 MG TABLET PO (09:00)
[2020-01-08] MEDS: METOPROLOL TARTRATE 12.5 MG TABLET PO ×2 (09:01→20:27)
[2020-01-08] MEDS: PANTOPRAZOLE 40 MG TABLET PO ×2 (09:01→20:26)
[2020-01-08] MEDS: mycophenolate mofetiL 250 MG CAPSULE PO ×2 (09:01→16:42)
[2020-01-08] MEDS: predniSONE 5 MG TABLET PO (09:01)
[2020-01-08 09:22] LABS: Glucose Point of Care 62 (65-105)
[2020-01-08] MEDS: DEXTROSE 50% 25 GM/50 ML SYRINGE IV PUSH (09:24)
[2020-01-08 09:46] LABS: Glucose Point of Care 122 (65-105)
[2020-01-08] MEDS: ASPIRIN 81 MG ENTERIC TABLET PO (10:30)
[2020-01-08] MEDS: ENOXAPARIN 30 MG/0.3 ML SYRINGE SUB-Q (11:45)
[2020-01-08 13:23] LABS: Glucose Point of Care 132 (65-105)
--- NOTE | 2020-01-08 15:38 | PC.NURSE ---
This patient, Diana Ott, was transferred to [facility] on 01/08/20 at 1538 via bed. Personal belongings sent with patient. Belongings list checked and signed with receiving RN. Report given to JUAN Nino. Appropriate documentation sent with patient.
--- NOTE | 2020-01-08 15:42 | PC.NURSE ---
This patient, Diana Ott, was received from IMU on 01/08/20 at 1542. Personal belongings list checked and signed. Patient/family oriented to unit policies and routines
--- NOTE | 2020-01-08 16:32 | PM.IMPN ---
Progress Note: A&P Assessment and Plan (1) Diverticulitis: Code(s): K57.92 - Diverticulitis of intestine, part unspecified, without perforation or abscess without bleeding Status: Acute Assessment and Plan: The patient was started on Levaquin. Which will have to monitor her kidney functions closely. Will add ceftriaxone also. She gives allergy to penicillin but states she has had no problem with cephalexin. Patient's constipation is pretty much cleared up as well., continue MiraLax (2) Acute UTI: Code(s): N39.0 - Urinary tract infection, site not specified Status: Acute Assessment and Plan: Urine and blood cultures are pending. 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 She has a history of a renal transplant. Patient is on Levaquin at this time. And added ceftriaxone pending cultures (3) CHF (congestive heart failure): Qualifiers: Heart failure type: unspecified Heart failure chronicity: chronic Qualified Code(s): I50.9 - Heart failure, unspecified Code(s): I50.9 - Heart failure, unspecified Status: Chronic Assessment and Plan: Amlodipine and Lasix are on hold at this time due to low blood pressure. Due to the low blood pressure. Continue metoprolol and clonidine if control rate so as not to precipitate rebound effect (4) CKD stage 3 due to type 1 diabetes mellitus: Code(s): E10.22 - Type 1 diabetes mellitus with diabetic chronic kidney disease; N18.3 - Chronic kidney disease, stage 3 (moderate) Status: Acute Assessment and Plan: Patient has a history of having a renal transplant in the past. She is on prednisone tamsulosin and mycophenolate which she will need to bring from home. Continue to monitor (5) Type 1 diabetes: Qualifiers: Diabetes mellitus complication status: with circulatory complication Diabetes mellitus complication detail: with other circulatory complications Qualified Code(s): E10.59 - Type 1 diabetes mellitus with other circulatory complications Code(s): E10.9 - Type 1 diabetes mellitus without complications Status: Chronic Assessment and Plan: Sliding scale insulin. Check A1c. Continue Lantus. (6) HTN (hypertension): Qualifiers: Hypertension type: essential hypertension Qualified Code(s): I10 - Essential (primary) hypertension Code(s): I10 - Essential (primary) hypertension Status: Chronic Assessment and Plan: Her blood pressure is on the soft side. We have had to give her some IV fluids gently due to her CHF. Continue to hold amlodipine and diuretic (7) Seizure disorder: Code(s): G40.909 - Epilepsy, unspecified, not intractable, without status epilepticus Status: Chronic Assessment and Plan: Continue with Keppra and check levels. (8) DVT prophylaxis: Code(s): Z29.9 - Encounter for prophylactic measures, unspecified Status: Acute Assessment and Plan: Low-dose Lovenox Subjective Date/time seen: 01/08/20 16:32 Interval history: Date of visit 01/07. 64-year-old type 2 diabetic chronic renal failure admitted with abdominal pain. CT scan looked to reveal mild sigmoid diverticulitis. Much abdominal pain was relieved when she had a bowel movement. She denies any urinary symptoms but continues to have some mild nausea this a.m. with leukocytosis. Currently hydrating and receiving antibiotics Urine marked leukocytosis Exam Narrative: Exam Narrative: Blood pressure 134/90 pulse is 84 saturating 96% on room air afebrile Lungs clear CV regular rate rhythm Abdomen is soft nontender obese Extremities right above knee amputation Left foot the bandage with chronic ulcerations, dorsalis pedis 1+ at best Neuro alert cooperative pleasant no focal deficits Objective Data Vital Signs Vital Signs: Vital Signs - 24 hr 01/07/20 16:43
[2020-01-08 16:37] LABS: Glucose Point of Care 136 (65-105)
[2020-01-08] MEDS: polyethylene glycoL 3350 17 GM POWD.PACK PO (16:42)
[2020-01-08] MEDS: CLONIDINE HCL 0.2 MG TABLET PO (20:26)
[2020-01-08] MEDS: PRAVASTATIN SODIUM 10 MG TABLET PO (20:26)
[2020-01-08] MEDS: TAMSULOSIN HCL 0.4 MG CAPSULE PO (20:27)
[2020-01-08 20:33] LABS: Glucose Point of Care 137 (65-105)
[2020-01-09] VITALS (10 sets, daily range): BP systolic 88–137; BP diastolic 40–97; PULSE 73–80; RESP 18–20; TEMP 36.3–36.5; O2SAT 96–98
[2020-01-09] MEDS: SODIUM CHLORIDE 0.9% IV 1,000 ML 75 ML IV CONT ×2 (04:29→10:44)
[2020-01-09 04:37] LABS: Glucose Point of Care 123 (65-105)
[2020-01-09 06:07] LABS: Basophils Absolute Auto 0.1 K/mm3 (0.0-0.1); Basophils Percent Auto 0.4 % (0.2-1.2); Eosinophils Absolute Auto 0.2 K/mm3 (0-0.3); Eosinophils Percent Auto 1.4 % (0-4.4); Hematocrit 32.4 % (37.0-47.0); Hemoglobin 9.9 g/dL (12.0-15.0); Immature Granulocyte Absolute 0.15 K/mm3 (0.00-0.031); Immature Granulocyte Percent A 1.1 % (0-0.5); Lymphocytes Absolute Auto 0.95 K/mm3 (0.9-3.2); Lymphocytes Percent Auto 6.8 % (18.3-44.2); Mean Corpuscular HGB Conc 30.6 g/dl (32-36); Mean Corpuscular Hemoglobin 29.5 pg (26-34); Mean Corpuscular Volume 96.4 fl (80-100); Mean Platelet Volume 10.2 fl (7.4-10.4); Monocytes Absolute Auto 0.8 K/mm3 (0.1-0.6); Neutrophils Absolute Auto 11.7 K/mm3 (1.3-6.7); Neutrophils Percent Auto 84.3 % (45.5-73.1); Platelet Count Result 307 k/mm3 (150-375); Red Blood Count 3.36 M/mm3 (4.2-5.4); Red Cell Distribution Width 15.8 % (11.5-14.5); White Blood Count 13.9 K/mm3 (4.5-10.0)
[2020-01-09 06:19] LABS: Blood Urea Nitrogen 46 mg/dL (7-17); Calcium 8.2 mg/dL (8.4-10.2); Carbon Dioxide 17 mmol/L (22-30); Chloride 113 mmol/L (98-107); Estimated CRCL calculation 28 ml/min; Estimated Glomerular Filt Rate 24; Glucose 124 mg/dL (65-105); Hemoglobin A1C 8.3 % (<5.7); Potassium 4.5 mmol/L (3.4-5.0); Sodium 138 mmol/L (137-145)
[2020-01-09 07:30] LABS: Glucose Point of Care 127 (65-105)
[2020-01-09] MEDS: mycophenolate mofetiL 250 MG CAPSULE PO ×2 (08:59→16:55)
[2020-01-09] MEDS: polyethylene glycoL 3350 17 GM POWD.PACK PO ×2 (08:59→16:55)
[2020-01-09] MEDS: CLOPIDOGREL BISULFATE 75 MG TABLET PO (08:59)
[2020-01-09] MEDS: levETIRAcetam 500 MG TABLET PO ×2 (09:00→21:03)
[2020-01-09] MEDS: METOPROLOL TARTRATE 12.5 MG TABLET PO ×2 (09:00→21:08)
[2020-01-09] MEDS: ASPIRIN 81 MG ENTERIC TABLET PO (09:00)
[2020-01-09] MEDS: FOLIC ACID 1 MG TABLET PO (09:00)
[2020-01-09] MEDS: allopurinoL 100 MG TABLET PO (09:00)
[2020-01-09] MEDS: PANTOPRAZOLE 40 MG TABLET PO ×2 (09:00→21:03)
[2020-01-09] MEDS: predniSONE 5 MG TABLET PO (09:00)
[2020-01-09] MEDS: CYANOCOBALAMIN 1,000 MCG TABLET 1000 MCG PO (09:00)
[2020-01-09] MEDS: ERGOCALCIFEROL 50,000 UNIT CAPSULE 50000 UNITS PO (09:00)
[2020-01-09] MEDS: ENOXAPARIN 30 MG/0.3 ML SYRINGE SUB-Q (09:01)
[2020-01-09] MEDS: methylPREDNISolone SOD SUCC 125 MG VIAL 60 MG IV PUSH (10:28)
[2020-01-09 11:13] LABS: Glucose Point of Care 155 (65-105)
--- NOTE | 2020-01-09 11:37 | PCPTNOTE ---
Attempted therapy x 2 this am, however unable to arouse pt to participate in treatment.
--- NOTE | 2020-01-09 13:37 | PC.NURSE ---
Spoke with son about pt and how she was doing this morning. Reported to him the drop in bp and how drowsy she got after therapy. Son stated that this happens when she participates in a lot of activity. He also stated she is only taking clonidine twice a day and not three times a day. Reported this update from the son to Dr. Garcia.
--- NOTE | 2020-01-09 16:28 | PM.IMPN ---
Progress Note: A&P Assessment and Plan (1) Diverticulitis: Code(s): K57.92 - Diverticulitis of intestine, part unspecified, without perforation or abscess without bleeding Status: Acute Assessment and Plan: The patient was started on Levaquin and changed to ertapenem today when cultures of urine returned. Patient's constipation is pretty much cleared up as well., continue MiraLax. (2) Acute UTI: Code(s): N39.0 - Urinary tract infection, site not specified Status: Acute Assessment and Plan: Urine growing ESBL Ecoli as above. The patient had a history of having drug resistant bacteria . She has a history of a renal transplant. Antibiotics changed to ertapenem (3) CHF (congestive heart failure): Qualifiers: Heart failure type: unspecified Heart failure chronicity: chronic Qualified Code(s): I50.9 - Heart failure, unspecified Code(s): I50.9 - Heart failure, unspecified Status: Chronic Assessment and Plan: Amlodipine and Lasix and clonidine are on hold at this time due to low blood pressure. . Continue metoprolol Patient had episode of hypotension and decreased level of consciousness today after working with occupational therapy. Sun related to nursing staff this happens frequently at home after she has been in a chair for short period of time Will hold on further therapy until infection better cleared (4) CKD stage 3 due to type 1 diabetes mellitus: Code(s): E10.22 - Type 1 diabetes mellitus with diabetic chronic kidney disease; N18.3 - Chronic kidney disease, stage 3 (moderate) Status: Acute Assessment and Plan: Patient has a history of having a renal transplant in the past. She is on prednisone tamsulosin and mycophenolate which she will need to bring from home. With pressure lower on chronic steroid treatment will increase steroids to 30 mg daily on the prednisone since she may be somewhat drip adrenal suppressed. Her creatinine up to 2.1 today user secondary to infection and/or hypotension. Continue hydration follow If rises further may need input from nephrology and probable sonogram of kidney although no obstruction seen on recent CT scan (5) Type 1 diabetes: Qualifiers: Diabetes mellitus complication status: with circulatory complication Diabetes mellitus complication detail: with other circulatory complications Qualified Code(s): E10.59 - Type 1 diabetes mellitus with other circulatory complications Code(s): E10.9 - Type 1 diabetes mellitus without complications Status: Chronic Assessment and Plan: Sliding scale insulin. A1c. 8.3 Continue Lantus. (6) HTN (hypertension): Qualifiers: Hypertension type: essential hypertension Qualified Code(s): I10 - Essential (primary) hypertension Code(s): I10 - Essential (primary) hypertension Status: Chronic Assessment and Plan: Her blood pressure is on the soft side. We have had to give her some IV fluids gently due to her CHF. Continue to hold amlodipine and diuretic And clonidine (7) Seizure disorder: Code(s): G40.909 - Epilepsy, unspecified, not intractable, without status epilepticus Status: Chronic Assessment and Plan: Continue with Keppra and check levels. (8) DVT prophylaxis: Code(s): Z29.9 - Encounter for prophylactic measures, unspecified Status: Acute Assessment and Plan: Low-dose Lovenox Subjective Date/time seen: 01/09/20 16:28 Interval history: Date of visit 01/08. 64-year-old type 2 diabetic chronic renal failure admitted with abdominal pain. CT scan looked to reveal mild sigmoid diverticulitis. abdominal pain was relieved when she had a bowel movement. She denies any urinary symptoms but no appetite. with leukocytosis. Currently hydrating and receiving antibiotics Urine marked leukocytosis and now growing ESBL Ecoli Exam Narrative: Exam Narrative: Blood pressur
[2020-01-09 16:31] LABS: Glucose Point of Care 225 (65-105)
[2020-01-09 16:31] LABS: Glucose Point of Care 220 (65-105)
[2020-01-09] MEDS: INSULIN ASPART (*BKC) 100 UNITS/ML SUB-Q (16:55)
[2020-01-09] MEDS: ERTAPENEM 1 GM/NS 50 ML 1 GM/50 ML BAG IVPB (17:46)
[2020-01-09] MEDS: TAMSULOSIN HCL 0.4 MG CAPSULE PO (21:03)
[2020-01-09] MEDS: PRAVASTATIN SODIUM 10 MG TABLET PO (21:03)
[2020-01-09 21:50] LABS: Glucose Point of Care 273 (65-105)
[2020-01-10] MEDS: SODIUM CHLORIDE 0.9% IV 1,000 ML 75 ML IV CONT (02:03)
[2020-01-10 05:39] LABS: Basophils Percent Auto 0.2 % (0.2-1.2); Hematocrit 32.8 % (37.0-47.0); Hemoglobin 9.9 g/dL (12.0-15.0); Immature Granulocyte Absolute 0.13 K/mm3 (0.00-0.031); Immature Granulocyte Percent A 1.2 % (0-0.5); Lymphocytes Absolute Auto 0.45 K/mm3 (0.9-3.2); Lymphocytes Percent Auto 4.3 % (18.3-44.2); Mean Corpuscular HGB Conc 30.2 g/dl (32-36); Mean Corpuscular Hemoglobin 29.2 pg (26-34); Mean Corpuscular Volume 96.8 fl (80-100); Mean Platelet Volume 10.4 fl (7.4-10.4); Monocytes Absolute Auto 0.1 K/mm3 (0.1-0.6); Monocytes Percent Auto 1.2 % (2.6-8.5); Neutrophils Absolute Auto 9.8 K/mm3 (1.3-6.7); Neutrophils Percent Auto 93.1 % (45.5-73.1); Platelet Count Result 337 k/mm3 (150-375); Red Blood Count 3.39 M/mm3 (4.2-5.4); Red Cell Distribution Width 15.3 % (11.5-14.5); White Blood Count 10.6 K/mm3 (4.5-10.0)
[2020-01-10 05:50] LABS: Blood Urea Nitrogen 51 mg/dL (7-17); Calcium 8.4 mg/dL (8.4-10.2); Carbon Dioxide 13 mmol/L (22-30); Chloride 113 mmol/L (98-107); Estimated CRCL calculation 27 ml/min; Estimated Glomerular Filt Rate 22; Glucose 271 mg/dL (65-105); Phosphorus 6.1 mg/dL (2.5-4.5); Sodium 137 mmol/L (137-145)
[2020-01-10 07:31] LABS: Glucose Point of Care 270 (65-105)
[2020-01-10] MEDS: ENOXAPARIN 30 MG/0.3 ML SYRINGE SUB-Q (07:59)
[2020-01-10] MEDS: polyethylene glycoL 3350 17 GM POWD.PACK PO ×2 (07:59→16:03)
[2020-01-10 08:00] VITALS: BP 129/80; PULSE 77
[2020-01-10] MEDS: METOPROLOL TARTRATE 12.5 MG TABLET PO (08:00)
[2020-01-10] MEDS: levETIRAcetam 500 MG TABLET PO ×2 (08:00→20:12)
[2020-01-10] MEDS: mycophenolate mofetiL 250 MG CAPSULE PO ×2 (08:01→16:03)
[2020-01-10] MEDS: FOLIC ACID 1 MG TABLET PO (08:01)
[2020-01-10] MEDS: ASPIRIN 81 MG ENTERIC TABLET PO (08:01)
[2020-01-10] MEDS: CLOPIDOGREL BISULFATE 75 MG TABLET PO (08:01)
[2020-01-10] MEDS: PANTOPRAZOLE 40 MG TABLET PO ×2 (08:01→20:12)
[2020-01-10] MEDS: predniSONE 10 MG TABLET 30 MG PO (08:02)
[2020-01-10] MEDS: allopurinoL 100 MG TABLET PO (08:02)
--- NOTE | 2020-01-10 08:09 | PCPTNOTE ---
Therapist informed MD wants to cancel therapy order for evaluation due to unstable BP.
--- NOTE | 2020-01-10 08:45 | PM.CNNEP ---
Assessment and Plan Assessment and plan (1) BEAU (acute kidney injury): Code(s): N17.9 - Acute kidney failure, unspecified Status: Acute (2) Chronic kidney disease, stage 3: Code(s): N18.3 - Chronic kidney disease, stage 3 (moderate) Status: Chronic (3) Acute UTI: Code(s): N39.0 - Urinary tract infection, site not specified Status: Acute (4) Diverticulitis: Code(s): K57.92 - Diverticulitis of intestine, part unspecified, without perforation or abscess without bleeding Status: Acute (5) Diabetes: Code(s): E11.9 - Type 2 diabetes mellitus without complications Status: Acute (6) HTN (hypertension): Qualifiers: Hypertension type: essential hypertension Qualified Code(s): I10 - Essential (primary) hypertension Code(s): I10 - Essential (primary) hypertension Status: Chronic Assessment and Plan: . Additional Plan Diana has acute kidney injury/acute renal failure on top of her baseline chronic kidney disease. I suspect that her rise in her creatinine is multifactorial and is ray result of her acute infection (diverticulitis as well as urinary tract infection) possibly complicated by prerenal factors since she is on diuretics and some bouts of relative hypotension since her admission here to [facility]. It seems reasonable to hold her antihypertensive medications as well as give her stress dose steroids as outlined by Dr. aries gerardo. A renal ultrasound has been ordered to evaluate her transplant kidney and also check urine electrolytes, urine eosinophils to hopefully ascertain a better assessment of her volume status as well as to ensure there are no drug reaction present. Hopefully, with IV antibiotic therapy and conservative therapy has already been instituted her renal function will improve if not stabilize. I do not think any adjustment to her immunosuppressive therapy needs to be done Emend has already mentioned, she has been started on stress dose steroids as she may have a component of mild adrenal insufficiency. I will continue follow patient with you while she remains hospitalized and make further recommendations during hospital course Thank you for allowing me to participate in the care this patient. History of Present Illness Reason for Consult Consult date: 01/10/20 Reason for consult: acute renal failure, chronic renal failure (stage 3) and Other (renal transplantation) Chief Complaint Chief complaint: sepsis,uti,diverticulitits,nausea and vomiting History of Present Illness Narrative: The patient is a 64 year old female with a past medical history as outlined who presented to [facility] ER complaints of abdominal pain. Apparently, she has been complaining of constipation for last few days and was given a dulcolax along with miralax and has been having appropriate russell movements. However, her abdominal pain persisted which led to her presentation to the ER. She gave no complaints of fevers or chills but she is on immunosuppression medications for her transplant kidney. Workup and evaluation in the emergency room demonstrated the patient be hemodynamically stable but with the persistent abdominal pain as mentioned above. Routine blood tests demonstrated labs consistent with mild renal insufficiency secondary to her renal transplantation and a mildly elevated lactic acid. She underwent a CT scan of the abdomen and pelvis which demonstrated sigmoid diverticulosis and increased fat density in the distal sigmoid area consistent with sigmoid diverticulitis. Appropriate cultures were obtained and she was started on IV antibiotic therapy, IV fluids and pain medications with subsequent admission to the hospital. Since her admission, her creatinine has remained somewhat elevated if not higher than baseline. Renal consultation was requested due to this acute decline in her baseline kidney function. For review of her records,
[2020-01-10 11:14] LABS: Glucose Point of Care 248 (65-105)
[2020-01-10 11:18] VITALS: BP 87/46; PULSE 71; RESP 20; TEMP 36.2; O2SAT 99
--- NOTE | 2020-01-10 11:37 | PM.IMPN ---
Progress Note: A&P Assessment and Plan (1) Altered mental status: Code(s): R41.82 - Altered mental status, unspecified Status: Acute Assessment and Plan: Etiology broad. Consider CVA or CO2 narcosis. Also consider unrecognized seizure. Son feels she has these episodes at home around this time so may be a benign event. Patient had episode of hypotension and decreased level of consciousness today after working with occupational therapy yesterday as well. Check AGB, lactic acid. Check CXR and CT brain. Small fluid bolus for low BP. Repeat labs. NPO until more awake and alert. CBC relatively unchanged. PH 7.26 with pCO2 24 and pO2 76. CO2 12, Cl 112 with Cr 2.2 and Glucose 243. AG 13. LFTs okay. TCK 203. 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 BiPAP resumed. BHOP pending. Lactic 1.4. On re-exam, patietn more awake and alert. She is oriented to location and month but not year (2011) or brooke name ('jake with the funny hair'). Metabolic nongap acidosis could be from RTA. Discussed with nephrology. Will stop NS. Nephrology to start bicarb 45 minutes spent on critical care time. (2) Diverticulitis: Code(s): K57.92 - Diverticulitis of intestine, part unspecified, without perforation or abscess without bleeding Status: Acute Assessment and Plan: The patient was started on Levaquin and changed to ertapenem yesterday when cultures of urine returned. Patient's constipation resolved. Continue IV abx. Continue MiraLax. (3) Acute UTI: Code(s): N39.0 - Urinary tract infection, site not specified Status: Acute Assessment and Plan: Urine growing ESBL Ecoli sensitive to Ertapenem. The patient had a history of having drug resistant bacteria . She has a history of a renal transplant. Continue ertapenem Day 2. (4) CHF (congestive heart failure): Qualifiers: Heart failure chronicity: chronic Heart failure type: unspecified Qualified Code(s): I50.9 - Heart failure, unspecified Code(s): I50.9 - Heart failure, unspecified Status: Chronic Assessment and Plan: Amlodipine and Lasix and clonidine are on hold at this time due to low blood pressure. BP still soft so will hold metoprolol and FLomax as well. Small fluid bolus. Consider repeating Solu-Medrol. (5) CKD stage 3 due to type 1 diabetes mellitus: Code(s): E10.22 - Type 1 diabetes mellitus with diabetic chronic kidney disease; N18.3 - Chronic kidney disease, stage 3 (moderate) Status: Acute Assessment and Plan: Patient has a history of having a renal transplant in the past. She is on prednisone, cyclosporin and mycophenolate. She is also on Flomax. Bladder scan today showing 180mL. Solu_medrol given once yesterday and her chronic steroid treatment was increased to 30 mg daily given the concern for adrenal suppression. Her creatinine up again to 2.2 today. Nephrology consult ordered and appreciate their input. She is edematous but albumin not bad at 3.0. Lasix on hold due to the HoTN. 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 Glucose reviewed on 01/10/20. Glucose higher in the 200's now Continue Accuchecks covering with sliding scale insulin. Continue Lantus. Hypoglycemia protocol available as needed. (7) HTN (hypertension): Qualifiers: Hypertension type: essential hypertension Qualified Code(s): I10 - Essential (primary) hypertension Code(s): I10 - Essential (primary) hypertension Status: Chronic Assessment and Plan:
[2020-01-10] MEDS: SODIUM CHLORIDE 0.9% IV 500 ML 999 ML IV CONT (11:43)
[2020-01-10 12:00] LABS: Alveolar/Arterial O2 Gradient 44.2 mmHg; Base Excess ABG -14.6 mEq/l (+/-2.0); Fractional Inspired Oxygen 21 %; HCO3 ABG 10.8 mEq/l (22.0-26.0); Oxygen Content ABG 13.8 %vol (16.0-22.0); Oxygen Saturation ABG 93.7 % (95.0-100.0); PCO2 ABG 24.5 mmHg (35.0-45.0); PO2 ABG 76.2 mmHg (80.0-100.0); PO2 FiO2 Ratio Arterial Blood 3.63 %; Total Hemoglobin 10.6 g/dL (12.0-18.0)
[2020-01-10 12:02] LABS: Basophils Percent Auto 0.1 % (0.2-1.2); Hematocrit 32.6 % (37.0-47.0); Hemoglobin 9.7 g/dL (12.0-15.0); Immature Granulocyte Absolute 0.14 K/mm3 (0.00-0.031); Immature Granulocyte Percent A 1.2 % (0-0.5); Lymphocytes Absolute Auto 0.47 K/mm3 (0.9-3.2); Lymphocytes Percent Auto 4.1 % (18.3-44.2); Mean Corpuscular HGB Conc 29.8 g/dl (32-36); Mean Corpuscular Hemoglobin 29.1 pg (26-34); Mean Corpuscular Volume 97.9 fl (80-100); Mean Platelet Volume 10.3 fl (7.4-10.4); Monocytes Absolute Auto 0.4 K/mm3 (0.1-0.6); Monocytes Percent Auto 3.3 % (2.6-8.5); Neutrophils Absolute Auto 10.4 K/mm3 (1.3-6.7); Neutrophils Percent Auto 91.3 % (45.5-73.1); Platelet Count Result 326 k/mm3 (150-375); Red Blood Count 3.33 M/mm3 (4.2-5.4); Red Cell Distribution Width 15.2 % (11.5-14.5); White Blood Count 11.4 K/mm3 (4.5-10.0)
[2020-01-10 12:04] LABS: Device ROOM AIR; Site Drawn RIGHT BRACHIAL; pH ABG 7.263 (7.350-7.450)
[2020-01-10 12:14] LABS: Alanine Aminotransferase 18 U/L (4-35); Albumin Level 2.9 g/dL (3.5-5.1); Alkaline Phosphatase 38 U/L (38-126); Aspartate Amino Transferase 39 U/L (14-36); Bilirubin,Total 0.5 mg/dL (0.2-1.3); Blood Urea Nitrogen 53 mg/dL (7-17); Carbon Dioxide 12 mmol/L (22-30); Chloride 112 mmol/L (98-107); Creatine Kinase 203 U/L (30-135); Estimated CRCL calculation 27 ml/min; Estimated Glomerular Filt Rate 22; Glucose 243 mg/dL (65-105); Potassium 4.9 mmol/L (3.4-5.0); Sodium 137 mmol/L (137-145)
[2020-01-10 12:15] LABS: Lactic Acid 1.4 mmol/L (0.7-2.1)
[2020-01-10 13:04] LABS: Beta-Hydroxybutyrate/Acetoacetate 2.47 mmol/L (0.02-0.27)
[2020-01-10 14:25] LABS: Glucose Point of Care 214 (65-105)
[2020-01-10] MEDS: INSULIN ASPART (*BKC) 100 UNITS/ML SUB-Q ×2 (14:26→14:31)
[2020-01-10 14:41] VITALS: BP 130/53; PULSE 71; RESP 20; TEMP 36.3; O2SAT 98
[2020-01-10] MEDS: ERTAPENEM 1 GM/NS 50 ML 1 GM/50 ML BAG IVPB (16:03)
[2020-01-10 16:37] VITALS: BMI 38.4
[2020-01-10 16:52] LABS: Glucose Point of Care 193 (65-105)
[2020-01-10 17:59] VITALS: BP 130/48; PULSE 71; RESP 18; TEMP 36.6; O2SAT 98
[2020-01-10 18:34] LABS: Potassium Urine Random 56.2 meq/L
[2020-01-10 18:38] LABS: Creatinine Urine 75.2 mg/dL; Total Protein Urine Random 36 mg/dL
[2020-01-10 18:40] LABS: Sodium Urine Random 26 meq/L
[2020-01-10 20:00] VITALS: BP 106/67; PULSE 74; RESP 20; TEMP 36.9; O2SAT 97
[2020-01-10] MEDS: SODIUM BICARBONATE 8.4% 75 MEQ in SODIUM CHLORIDE 0.45% 1,000 ML IV CONT (20:08)
[2020-01-10] MEDS: PRAVASTATIN SODIUM 10 MG TABLET PO (20:12)
[2020-01-10 20:37] VITALS: PULSE 70; RESP 18; O2SAT 97
[2020-01-10 21:57] LABS: Glucose Point of Care 188 (65-105)
[2020-01-11 02:13] VITALS: PULSE 72; RESP 15; O2SAT 92
[2020-01-11 05:00] VITALS: BP 111/40; PULSE 69; RESP 20; TEMP 36.3; O2SAT 98
[2020-01-11 05:47] LABS: Albumin Level 2.9 g/dL (3.5-5.1); Blood Urea Nitrogen 64 mg/dL (7-17); Calcium 8.4 mg/dL (8.4-10.2); Carbon Dioxide 11 mmol/L (22-30); Chloride 113 mmol/L (98-107); Estimated CRCL calculation 26 ml/min; Estimated Glomerular Filt Rate 21; Glucose 260 mg/dL (65-105); Phosphorus 6.3 mg/dL (2.5-4.5); Potassium 5.4 mmol/L (3.4-5.0); Sodium 137 mmol/L (137-145)
[2020-01-11 05:53] LABS: Hematocrit 32.2 % (37.0-47.0); Mean Corpuscular HGB Conc 31.1 g/dl (32-36); Mean Corpuscular Hemoglobin 29.4 pg (26-34); Mean Corpuscular Volume 94.7 fl (80-100); Mean Platelet Volume 10.8 fl (7.4-10.4); Platelet Count Result 246 k/mm3 (150-375); Red Cell Distribution Width 15.4 % (11.5-14.5)
[2020-01-11 07:54] LABS: Glucose Point of Care 251 (65-105)
[2020-01-11 09:01] LABS: Levetiracetam Keppra 48.4 mcg/mL (12.0-46.0)
[2020-01-11] MEDS: levETIRAcetam 500 MG TABLET PO ×2 (09:04→20:34)
[2020-01-11] MEDS: predniSONE 10 MG TABLET 30 MG PO (09:04)
[2020-01-11] MEDS: polyethylene glycoL 3350 17 GM POWD.PACK PO ×2 (09:04→17:08)
[2020-01-11] MEDS: mycophenolate mofetiL 250 MG CAPSULE PO ×2 (09:04→17:08)
[2020-01-11] MEDS: ASPIRIN 81 MG ENTERIC TABLET PO (09:05)
[2020-01-11] MEDS: PANTOPRAZOLE 40 MG TABLET PO ×2 (09:05→20:34)
[2020-01-11] MEDS: CLOPIDOGREL BISULFATE 75 MG TABLET PO (09:05)
[2020-01-11] MEDS: CYANOCOBALAMIN 1,000 MCG TABLET 1000 MCG PO (09:05)
[2020-01-11] MEDS: allopurinoL 100 MG TABLET PO (09:05)
[2020-01-11] MEDS: INSULIN ASPART (*BKC) 100 UNITS/ML SUB-Q ×3 (09:05→17:12)
[2020-01-11] MEDS: FOLIC ACID 1 MG TABLET PO (09:05)
[2020-01-11] MEDS: ENOXAPARIN 30 MG/0.3 ML SYRINGE SUB-Q (09:13)
[2020-01-11] MEDS: SODIUM BICARBONATE 8.4% 75 MEQ in SODIUM CHLORIDE 0.45% 1,000 ML IV CONT (09:15)
[2020-01-11 11:24] LABS: Glucose Point of Care 281 (65-105)
--- NOTE | 2020-01-11 11:39 | PM.IMPN ---
Progress Note: A&P Assessment and Plan (1) Altered mental status: Code(s): R41.82 - Altered mental status, unspecified Status: Acute Assessment and Plan: Son feels she has these episodes at home and may be same event occuring her.. On re-exam, patietn much more awake and alert. She is oriented to person and place today. Metabolic nongap acidosis could be from RTA. CO2 still 11. Nephrology started bicarb 01/09 (2) Diverticulitis: Code(s): K57.92 - Diverticulitis of intestine, part unspecified, without perforation or abscess without bleeding Status: Acute Assessment and Plan: The patient was started on Levaquin and changed to ertapenem yesterday when cultures of urine returned. Patient's constipation resolved. Continue IV abx. Continue MiraLax. (3) Acute UTI: Code(s): N39.0 - Urinary tract infection, site not specified Status: Acute Assessment and Plan: Urine growing ESBL Ecoli sensitive to Ertapenem. The patient had a history of having drug resistant bacteria . She has a history of a renal transplant. Continue ertapenem Day 3. (4) CHF (congestive heart failure): Qualifiers: Heart failure type: unspecified Heart failure chronicity: chronic Qualified Code(s): I50.9 - Heart failure, unspecified Code(s): I50.9 - Heart failure, unspecified Status: Chronic Assessment and Plan: Amlodipine and Lasix and clonidine are on hold at this time due to low blood pressure. BP still soft so will hold metoprolol and FLomax as well (5) CKD stage 3 due to type 1 diabetes mellitus: Code(s): E10.22 - Type 1 diabetes mellitus with diabetic chronic kidney disease; N18.3 - Chronic kidney disease, stage 3 (moderate) Status: Acute Assessment and Plan: Patient has a history of having a renal transplant in the past. She is on prednisone, cyclosporin and mycophenolate. She is also on Flomax. Bladder scan today showing 180mL. chronic steroid treatment was increased to 30 mg daily given the concern for adrenal suppression. Her creatinine steady at 2.3 today. . She is edematous but albumin not bad at 3.0. Lasix on hold due to the HoTN. 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 Glucose reviewed on 01/10/20. Glucose higher in the 200's now Continue Accuchecks covering with sliding scale insulin. Restart Lantus at 10 q12 which had been held with lethargy and decreased po intake. With infection and increased steroid starting to rise FBS 260 Hypoglycemia protocol available as needed. (7) HTN (hypertension): Qualifiers: Hypertension type: essential hypertension Qualified Code(s): I10 - Essential (primary) hypertension Code(s): I10 - Essential (primary) hypertension Status: Chronic Assessment and Plan: Blood pressure reviewed on 01/10/2020. Her blood pressure remains soft. Small fluid bolus today. Antihypertensive medications on hold as mentioned above. Continue to monitor blood pressure closely. (8) Seizure disorder: Code(s): G40.909 - Epilepsy, unspecified, not intractable, without status epilepticus Status: Chronic Assessment and Plan: Consider on witnessed seizure. Continue Keppra. (9) DVT prophylaxis: Code(s): Z29.9 - Encounter for prophylactic measures, unspecified Status: Acute Assessment and Plan: Lovenox Subjective Date/time seen: 01/11/20 11:39 Interval history: Date of visit 01/10 64y
[2020-01-11] MEDS: INSULIN GLARGINE (*BKC) 100 UNITS/ML SUB-Q (12:12)
[2020-01-11 14:00] VITALS: BP 126/96; PULSE 71; RESP 20; TEMP 37; O2SAT 96
--- NOTE | 2020-01-11 16:30 | PM.PNNEP ---
Progress Note: A&P Assessment and Plan (1) BEAU (acute kidney injury): Code(s): N17.9 - Acute kidney failure, unspecified Status: Acute Assessment and Plan: suspect multifactorial etiology - acute infection (divericulitis + UTI) - relative hypotension - prerenal azotemia (as noted by urine lytes) worsened by diuretic therapy follow trend with interventinoni on bicarb fluids follow trend (2) Chronic kidney disease, stage 3: Code(s): N18.3 - Chronic kidney disease, stage 3 (moderate) Status: Chronic Assessment and Plan: creatinine seems run ~ 1.3 - 1.8mg/dl but seems to be more closely to 1.4 - 1.6mg/dl in last several months 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 coli by urine culture on antibiotics (4) Diverticulitis: Code(s): K57.92 - Diverticulitis of intestine, part unspecified, without perforation or abscess without bleeding Status: Acute Assessment and Plan: as noted by imaging on admission continue current therapy (5) Acidosis: Code(s): E87.2 - Acidosis Status: Acute Assessment and Plan: due to acute infection? something else? using bicarb fluids to compensate follow CO2 levels (6) HTN (hypertension): Qualifiers: Hypertension type: essential hypertension Qualified Code(s): I10 - Essential (primary) hypertension Code(s): I10 - Essential (primary) hypertension Status: Chronic Assessment and Plan: not an issue BP medications on hold Will continue to follow. Subjective Date/time seen: 01/11/20 16:30 Appears to be improving in general since admission; no acute distress voiced at this time; no events or problems overnight or earlier this AM. Exam Narrative: Exam Narrative: General: WD/WN male/female in NAD Heart: normal S1 and S2; no rub Lungs: clear to auscultation Abdomen: soft, nontender, nondistended, positive bowel sounds Extremities: no cyanosis or clubbing; s/p right AKA Skin: left leg dressings noted Objective Data Vital Signs Vital Signs: Vital Signs Temp Pulse Resp BP Pulse Ox 01/11/20 14:00 37.0 C 71 20 126/96 H 96 01/11/20 05:00 36.3 C L 69 20 111/40 L 98 01/11/20 02:13 72 15 92 01/10/20 20:37 70 18 97 01/10/20 20:00 36.9 C 74 20 106/67 97 01/10/20 17:59 36.6 C 71 18 130/48 L 98 Intake/Output Intake/Output: Intake & Output 01/08/20 01/09/20 01/10/20 01/11/20 23:59 23:59 23:59 23:59 Intake Total 2270 3660 1340 1705 Balance 2270 3660 1340 1705 Meds/Results Medications: Active Medications Generic Name Dose Route Start Last Admin Trade Name Freq PRN Reason Stop Dose Admin Acetaminophen 650 mg 01/08/20 16:31 Tylenol Tablet PO Q6H PRN Mild Pain (1-3) or Fever Allopurinol 100 mg 01/08/20 09:00 01/11/20 09:05 Zyloprim PO 100 mg DAILY KATHRIN Administration Aspirin 81 mg 01/08/20 09:00 01/11/20 09:05 Aspirin Ec PO 81 mg DAILY KATHRIN Administration Clonidine HCl 0.2 mg 01/08/20 21:00 01/08/20 20:26 Catapres PO 0.2 mg Q12HR KATHRIN Administration Clopidogrel Bisulfate 75 mg 01/08/20 09:00 01/11/20 09:05 Plavix PO 75 mg DAILY KATHRIN Administration Cyanocobalamin 1,000 mcg 01/09/20 09:00 01/11/20 09:05 Vitamin B-12 Tab PO 1,000 mcg [id number] KATHRIN Administration Cyclosporine 50 mg 01/07/20 21:00 01/11/20 09:04 Sandimmune Capsule PO 50 mg Q12HR KATHRIN Administration Dextrose 12.5 gm 01/07/20 16:06 01/08/20 09:24 Dextrose 50% Syringe IV PUSH 12.5 gm PRN PRN Administration Hypoglycemia Protocol Enoxaparin Sodium 30 mg 01/08/20 10:50 01/11/20 09:13 Lovenox SUB-Q 30 mg DAILY KATHRIN Administration Ergocalciferol 50,000 unit 05
[2020-01-11 16:46] LABS: Glucose Point of Care 258 (65-105)
[2020-01-11] MEDS: ERTAPENEM 1 GM/NS 50 ML 1 GM/50 ML BAG IVPB (17:08)
[2020-01-11] MEDS: PRAVASTATIN SODIUM 10 MG TABLET PO (20:34)
[2020-01-11] MEDS: INSULIN GLARGINE (*BKC) 100 UNITS/ML 10 UNITS SUB-Q (20:37)
[2020-01-11 21:03] VITALS: BP 131/82; PULSE 77; RESP 18; TEMP 36.2; O2SAT 97
[2020-01-11 21:19] LABS: Glucose Point of Care 277 (65-105)
[2020-01-11 22:09] VITALS: PULSE 73; RESP 16; O2SAT 94
[2020-01-12] MEDS: SODIUM BICARBONATE 8.4% 75 MEQ in SODIUM CHLORIDE 0.45% 1,000 ML IV CONT ×2 (00:04→15:38)
[2020-01-12 02:05] VITALS: PULSE 71; RESP 16; O2SAT 94
[2020-01-12 05:26] VITALS: BP 153/68; PULSE 81; RESP 16; TEMP 36.4; O2SAT 98
[2020-01-12 07:46] LABS: Glucose Point of Care 278 (65-105)
[2020-01-12] MEDS: polyethylene glycoL 3350 17 GM POWD.PACK PO ×2 (08:22→16:54)
[2020-01-12] MEDS: allopurinoL 100 MG TABLET PO (08:22)
[2020-01-12] MEDS: predniSONE 10 MG TABLET 30 MG PO (08:22)
[2020-01-12] MEDS: INSULIN ASPART (*BKC) 100 UNITS/ML SUB-Q ×3 (08:23→16:54)
[2020-01-12] MEDS: CLOPIDOGREL BISULFATE 75 MG TABLET PO (08:23)
[2020-01-12] MEDS: ASPIRIN 81 MG ENTERIC TABLET PO (08:23)
[2020-01-12] MEDS: INSULIN GLARGINE (*BKC) 100 UNITS/ML 10 UNITS SUB-Q (08:24)
[2020-01-12] MEDS: FOLIC ACID 1 MG TABLET PO (08:25)
[2020-01-12] MEDS: PANTOPRAZOLE 40 MG TABLET PO ×2 (08:25→20:05)
[2020-01-12] MEDS: levETIRAcetam 500 MG TABLET PO ×2 (08:25→20:04)
[2020-01-12] MEDS: mycophenolate mofetiL 250 MG CAPSULE PO ×2 (08:25→16:54)
[2020-01-12] MEDS: ENOXAPARIN 30 MG/0.3 ML SYRINGE SUB-Q (08:26)
[2020-01-12 08:46] LABS: Blood Urea Nitrogen 71 mg/dL (7-17); Calcium 8.3 mg/dL (8.4-10.2); Carbon Dioxide 15 mmol/L (22-30); Chloride 109 mmol/L (98-107); Estimated CRCL calculation 24 ml/min; Estimated Glomerular Filt Rate 19; Glucose 298 mg/dL (65-105); Phosphorus 5.8 mg/dL (2.5-4.5); Potassium 4.8 mmol/L (3.4-5.0); Sodium 137 mmol/L (137-145)
--- NOTE | 2020-01-12 10:44 | PCPTNOTE ---
Attempted PT evaluation this AM. Pt requests to come back later today secondary to not feeling well and wanting to rest. Will try again this afternoon.
--- NOTE | 2020-01-12 10:46 | PCOTNOTE ---
Patient refusing therapy at this time due to feeling unwell and wanting to rest. Will attempt OT evaluation at later time.
[2020-01-12 11:23] LABS: Glucose Point of Care 311 (65-105)
--- NOTE | 2020-01-12 13:45 | PM.IMPN ---
Progress Note: A&P Assessment and Plan (1) Altered mental status: Code(s): R41.82 - Altered mental status, unspecified Status: Acute Assessment and Plan: Son feels she has these episodes at home and may be same event occuring her.. On re-exam, patietn much more awake and alert. She is oriented to person ,place, and date and time.. Metabolic nongap acidosis CO2 up to 15 with bicarb started 01/09 (2) Diverticulitis: Code(s): K57.92 - Diverticulitis of intestine, part unspecified, without perforation or abscess without bleeding Status: Acute Assessment and Plan: The patient was started on Levaquin and changed to ertapenem 01/08 when cultures of urine returned. Patient's constipation resolved. Continue IV abx. Continue MiraLax. (3) Acute UTI: Code(s): N39.0 - Urinary tract infection, site not specified Status: Acute Assessment and Plan: Urine growing ESBL Ecoli sensitive to Ertapenem. The patient had a history of having drug resistant bacteria . She has a history of a renal transplant. Continue ertapenem Day 4. (4) CHF (congestive heart failure): Qualifiers: Heart failure type: unspecified Heart failure chronicity: chronic Qualified Code(s): I50.9 - Heart failure, unspecified Code(s): I50.9 - Heart failure, unspecified Status: Chronic Assessment and Plan: Amlodipine and Lasix and clonidine are on hold at this time due to low blood pressure. BP rising today so metoprolol restarted (5) CKD stage 3 due to type 1 diabetes mellitus: Code(s): E10.22 - Type 1 diabetes mellitus with diabetic chronic kidney disease; N18.3 - Chronic kidney disease, stage 3 (moderate) Status: Acute Assessment and Plan: Patient has a history of having a renal transplant in the past. She is on prednisone, cyclosporin and mycophenolate. She is also on Flomax. Bladder scan today showing 180mL. chronic steroid treatment was increased to 30 mg daily given the concern for adrenal suppression. Her creatinine steady at 2.5 today. . She is edematous Lasix on hold due to the HoTN and await nephrololgy opinion when to restart.. renal US 01/09 , no hydro, moderate atrophy R and cortical thinning L. (6) Type 1 diabetes: Qualifiers: Diabetes mellitus complication status: with circulatory complication Diabetes mellitus complication detail: with other circulatory complications Qualified Code(s): E10.59 - Type 1 diabetes mellitus with other circulatory complications Code(s): E10.9 - Type 1 diabetes mellitus without complications Status: Chronic Assessment and Plan: A1c 8.3. Glucose reviewed on 01/12/20. Glucose higher in the 200's still Continue Accuchecks covering with sliding scale insulin. Restarted Lantus at 10 q12 01/10 which had been held with lethargy and decreased po intake. With infection and increased steroid starting to rise FBS 280 increase lantus to 14 units q12 (7) HTN (hypertension): Qualifiers: Hypertension type: essential hypertension Qualified Code(s): I10 - Essential (primary) hypertension Code(s): I10 - Essential (primary) hypertension Status: Chronic Assessment and Plan: Blood pressure reviewed on 01/12/2020. Her blood pressure continues to rise. Antihypertensive medications on hold as mentioned above. Restart metoprolol today (8) Seizure disorder: Code(s): G40.909 - Epilepsy, unspecified, not intractable, without status epilepticus Status: Chronic Assessment and Plan: Consider on witnessed seizure. Continue Keppra. (9) DVT prophylaxis: Code(s): Z29.9 - Encounter for prophylactic measures, unspecified Status: Acute Assessment and Plan: Lovenox Subjective Date/time seen: 01/12/20 13:45 Interval history: Date of visit 01/11 64yo female with DM, CKD and hx of renal transplant here
[2020-01-12 14:31] VITALS: BP 148/76; PULSE 89; RESP 18; TEMP 35.8; O2SAT 96
--- NOTE | 2020-01-12 15:06 | P.PNNP_ITS ---
Progress Note: A&P Assessment and Plan (1) BEAU (acute kidney injury): Code(s): N17.9 - Acute kidney failure, unspecified Status: Acute Assessment and Plan: * suspect multifactorial etiology - acute infection (divericulitis + UTI) - relative hypotension - prerenal azotemia (as noted by urine lytes) worsened by diuretic therapy * follow trend with current interventions (IVFs, antibiotics, optimization of BP) * on bicarb fluids * follow trend (2) Chronic kidney disease, stage 3: Code(s): N18.3 - Chronic kidney disease, stage 3 (moderate) Status: Chronic Assessment and Plan: * creatinine seems run ~ 1.3 - 1.8mg/dl but seems to be more closely to 1.4 - 1.6mg/dl in last several months * 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 coli by urine culture * on antibiotics (4) Diverticulitis: Code(s): K57.92 - Diverticulitis of intestine, part unspecified, without perforation or abscess without bleeding Status: Acute Assessment and Plan: * as noted by imaging on admission * continue current therapy (5) Acidosis: Code(s): E87.2 - Acidosis Status: Acute Assessment and Plan: * due to acute infection? * something else? * using bicarb fluids to compensate * follow CO2 levels (6) HTN (hypertension): Qualifiers: Hypertension type: essential hypertension Qualified Code(s): I10 - Essential (primary) hypertension Code(s): I10 - Essential (primary) hypertension Status: Chronic Assessment and Plan: * not an issue * BP medications on hold Will continue to follow. Subjective Date/time seen: 01/12/20 15:06 Continues to make slow improvement -- states that she does feel better in comparison to admission; seems more awake and talkative in general; no apparent distress voiced at this time. Exam Narrative: Exam Narrative: General: WD/WN female in NAD Heart: normal S1 and S2; no rub Lungs: clear to auscultation Abdomen: soft, nontender, nondistended, positive bowel sounds Extremities: no cyanosis or clubbing; s/p right AKA Skin: left leg dressings in place Objective Data Vital Signs Vital Signs: Vital Signs Temp Pulse Resp BP Pulse Ox 01/12/20 14:31 35.8 C L 89 18 148/76 H 96 01/12/20 05:26 36.4 C 81 16 153/68 H 98 01/12/20 02:05 71 16 94 01/11/20 22:09 73 16 94 01/11/20 21:03 36.2 C L 77 18 131/82 97 Intake/Output Intake/Output: Intake & Output 01/09/20 01/10/20 01/11/20 01/12/20 23:59 23:59 23:59 23:59 Intake Total 3660 1340 3410 1067 Balance 3660 1340 3410 1067 Meds/Results Medications: Active Medications Generic Name Dose Route Start Last Admin Trade Name Freq PRN Reason Stop Dose Admin Acetaminophen 650 mg 01/08/20 16:31 Tylenol Tablet PO Q6H PRN Mild Pain (1-3) or Fever Allopurinol 100 mg 01/08/20 09:00 01/12/20 08:22 Zyloprim PO 100 mg DAILY KATHRIN Administration
--- NOTE | 2020-01-12 15:06 | PM.PNNEP ---
Progress Note: A&P Assessment and Plan (1) BEAU (acute kidney injury): Code(s): N17.9 - Acute kidney failure, unspecified Status: Acute Assessment and Plan: suspect multifactorial etiology - acute infection (divericulitis + UTI) - relative hypotension - prerenal azotemia (as noted by urine lytes) worsened by diuretic therapy follow trend with current interventions (IVFs, antibiotics, optimization of BP) on bicarb fluids follow trend (2) Chronic kidney disease, stage 3: Code(s): N18.3 - Chronic kidney disease, stage 3 (moderate) Status: Chronic Assessment and Plan: creatinine seems run ~ 1.3 - 1.8mg/dl but seems to be more closely to 1.4 - 1.6mg/dl in last several months probably due to DM, hypertension, and chronic allograft nephropathy continue current immunosuppressive medications for now check cyclosporine level (3) Acute UTI: Code(s): N39.0 - Urinary tract infection, site not specified Status: Acute Assessment and Plan: E. coli by urine culture on antibiotics (4) Diverticulitis: Code(s): K57.92 - Diverticulitis of intestine, part unspecified, without perforation or abscess without bleeding Status: Acute Assessment and Plan: as noted by imaging on admission continue current therapy (5) Acidosis: Code(s): E87.2 - Acidosis Status: Acute Assessment and Plan: due to acute infection? something else? using bicarb fluids to compensate follow CO2 levels (6) HTN (hypertension): Qualifiers: Hypertension type: essential hypertension Qualified Code(s): I10 - Essential (primary) hypertension Code(s): I10 - Essential (primary) hypertension Status: Chronic Assessment and Plan: not an issue BP medications on hold Will continue to follow. Subjective Date/time seen: 01/12/20 15:06 Continues to make slow improvement -- states that she does feel better in comparison to admission; seems more awake and talkative in general; no apparent distress voiced at this time. Exam Narrative: Exam Narrative: General: WD/WN female in NAD Heart: normal S1 and S2; no rub Lungs: clear to auscultation Abdomen: soft, nontender, nondistended, positive bowel sounds Extremities: no cyanosis or clubbing; s/p right AKA Skin: left leg dressings in place Objective Data Vital Signs Vital Signs: Vital Signs Temp Pulse Resp BP Pulse Ox 01/12/20 14:31 35.8 C L 89 18 148/76 H 96 01/12/20 05:26 36.4 C 81 16 153/68 H 98 01/12/20 02:05 71 16 94 01/11/20 22:09 73 16 94 01/11/20 21:03 36.2 C L 77 18 131/82 97 Intake/Output Intake/Output: Intake & Output 01/09/20 01/10/20 01/11/20 01/12/20 23:59 23:59 23:59 23:59 Intake Total 3660 1340 3410 1067 Balance 3660 1340 3410 1067 Meds/Results Medications: Active Medications Generic Name Dose Route Start Last Admin Trade Name Freq PRN Reason Stop Dose Admin Acetaminophen 650 mg 01/08/20 16:31 Tylenol Tablet PO Q6H PRN Mild Pain (1-3) or Fever Allopurinol 100 mg 01/08/20 09:00 01/12/20 08:22 Zyloprim PO 100 mg DAILY KATHRIN Administration Aspirin 81 mg 01/08/20 09:00 01/12/20 08:23 Aspirin Ec PO 81 mg DAILY KATHRIN Administration Clonidine HCl 0.2 mg 01/08/20 21:00 01/08/20 20:26 Catapres PO 0.2 mg Q12HR KATHRIN Administration Clopidogrel Bisulfate 75 mg 01/08/20 09:00 01/12/20 08:23 Plavix PO 75 mg DAILY KATHRIN Administration Cyanocobalamin 1,000 mcg 01/09/20 09:00 01/11/20 09:05 Vitamin B-12 Tab PO 1,000 mcg [id number] KATHRIN Administration Cyclosporine 50 mg 01/07/20 21:00 01/12/20 08:35 Sandimmune Capsule PO 50 mg Q12HR KATHRIN Administration Dextrose 12.5 gm 01/07/20 16:06 01/08/20 09:24 Dextrose 50% Syringe IV PUSH 12.5 gm PRN PRN Administration Hypoglycemia Protocol Enoxaparin Sodium 3
[2020-01-12] MEDS: ERTAPENEM 1 GM/NS 50 ML 1 GM/50 ML BAG IVPB (15:55)
[2020-01-12] MEDS: INSULIN GLARGINE (*BKC) 100 UNITS/ML 14 UNITS SUB-Q (15:56)
[2020-01-12 16:42] LABS: Glucose Point of Care 301 (65-105)
[2020-01-12 20:04] VITALS: PULSE 84
[2020-01-12] MEDS: METOPROLOL TARTRATE 12.5 MG TABLET PO (20:04)
[2020-01-12] MEDS: PRAVASTATIN SODIUM 10 MG TABLET PO (20:05)
[2020-01-12 20:33] VITALS: BP 130/58; PULSE 88; RESP 16; TEMP 36.4; O2SAT 98
[2020-01-12 22:05] LABS: Glucose Point of Care 275 (65-105)
[2020-01-12 22:15] VITALS: PULSE 73; RESP 14; O2SAT 94
[2020-01-13] MEDS: INSULIN GLARGINE (*BKC) 100 UNITS/ML 14 UNITS SUB-Q ×2 (02:09→13:36)
[2020-01-13 02:17] LABS: Glucose Point of Care 310 (65-105)
[2020-01-13 05:28] LABS: Basophils Percent Auto 0.3 % (0.2-1.2); Hematocrit 32.7 % (37.0-47.0); Hemoglobin 10.3 g/dL (12.0-15.0); Immature Granulocyte Absolute 0.39 K/mm3 (0.00-0.031); Immature Granulocyte Percent A 4.4 % (0-0.5); Lymphocytes Absolute Auto 0.54 K/mm3 (0.9-3.2); Lymphocytes Percent Auto 6.2 % (18.3-44.2); Mean Corpuscular HGB Conc 31.5 g/dl (32-36); Mean Corpuscular Volume 92.1 fl (80-100); Mean Platelet Volume 10.2 fl (7.4-10.4); Monocytes Absolute Auto 0.4 K/mm3 (0.1-0.6); Monocytes Percent Auto 4.2 % (2.6-8.5); Neutrophils Absolute Auto 7.5 K/mm3 (1.3-6.7); Neutrophils Percent Auto 84.9 % (45.5-73.1); Nucleated Red Blood Cells Perc 0.2 % (0.0-0.2); Platelet Count Result 362 k/mm3 (150-375); Red Blood Count 3.55 M/mm3 (4.2-5.4); White Blood Count 8.8 K/mm3 (4.5-10.0)
[2020-01-13 05:29] VITALS: BP 137/88; PULSE 88; RESP 20; TEMP 36.5; O2SAT 99
[2020-01-13] MEDS: SODIUM BICARBONATE 8.4% 75 MEQ in SODIUM CHLORIDE 0.45% 1,000 ML IV CONT (05:37)
[2020-01-13 05:43] LABS: Blood Urea Nitrogen 72 mg/dL (7-17); Calcium 8.4 mg/dL (8.4-10.2); Carbon Dioxide 19 mmol/L (22-30); Chloride 109 mmol/L (98-107); Estimated CRCL calculation 24 ml/min; Estimated Glomerular Filt Rate 19; Glucose 334 mg/dL (65-105); Potassium 4.6 mmol/L (3.4-5.0); Sodium 138 mmol/L (137-145)
[2020-01-13 07:48] LABS: Glucose Point of Care 278 (65-105)
[2020-01-13] MEDS: levETIRAcetam 500 MG TABLET PO ×2 (08:23→21:41)
[2020-01-13] MEDS: allopurinoL 100 MG TABLET PO (08:23)
[2020-01-13] MEDS: PANTOPRAZOLE 40 MG TABLET PO ×2 (08:23→21:41)
[2020-01-13] MEDS: CYANOCOBALAMIN 1,000 MCG TABLET 1000 MCG PO (08:23)
[2020-01-13] MEDS: predniSONE 10 MG TABLET 30 MG PO (08:23)
[2020-01-13] MEDS: FOLIC ACID 1 MG TABLET PO (08:23)
[2020-01-13] MEDS: mycophenolate mofetiL 250 MG CAPSULE PO ×2 (08:23→16:41)
[2020-01-13] MEDS: ASPIRIN 81 MG ENTERIC TABLET PO (08:23)
[2020-01-13 08:24] VITALS: PULSE 88
[2020-01-13] MEDS: METOPROLOL TARTRATE 12.5 MG TABLET PO ×2 (08:24→21:42)
[2020-01-13] MEDS: CLOPIDOGREL BISULFATE 75 MG TABLET PO (08:24)
[2020-01-13] MEDS: ENOXAPARIN 30 MG/0.3 ML SYRINGE SUB-Q (08:25)
[2020-01-13] MEDS: polyethylene glycoL 3350 17 GM POWD.PACK PO ×2 (08:25→16:41)
[2020-01-13] MEDS: INSULIN ASPART (*BKC) 100 UNITS/ML SUB-Q ×3 (08:26→16:42)
--- NOTE | 2020-01-13 11:14 | P.PNNP_ITS ---
Progress Note: A&P Assessment and Plan (1) BEAU (acute kidney injury): Code(s): N17.9 - Acute kidney failure, unspecified Status: Acute Assessment and Plan: * suspect multifactorial etiology - acute infection (divericulitis + UTI) - relative hypotension - prerenal azotemia (as noted by urine lytes) worsened by diuretic therapy * Creatinine has stopped rising. Hopefully will see turn around. * Cyclosporin level is still pending. 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 (3) Acute UTI: Code(s): N39.0 - Urinary tract infection, site not specified Status: Acute Assessment and Plan: * E. coli by urine culture * on ertapenem. * Sensitive to penicillins but she is allergic. (4) Diverticulitis: Code(s): K57.92 - Diverticulitis of intestine, part unspecified, without perforation or abscess without bleeding Status: Acute Assessment and Plan: * as noted by imaging on admission * continue current therapy (5) Acidosis: Code(s): E87.2 - Acidosis Status: Acute Assessment and Plan: * Anion gap only 13. * This could be dilutional or related to infection. Her lower GFR would also predispose her to type 4 RTA because of lack of ammoniagenesis. * CO2 is improving on a bicarb drip. Once above 20 we can switch to p.o.. (6) HTN (hypertension): Qualifiers: Hypertension type: essential hypertension Qualified Code(s): I10 - Essential (primary) hypertension Code(s): I10 - Essential (primary) hypertension Status: Chronic Assessment and Plan: * not an issue * BP medications on hold Additional Plan Subjective Date/time seen: 01/13/20 11:14 Interval history: Patient is alert. Hard of hearing. Feels okay. Review of Systems Cardiovascular: Cardiovascular: Reports no additional cardiovascular complaints Respiratory: Respiratory: Reports no additional respiratory complaints Gastrointestinal: Gastrointestinal: Reports no additional gastrointestinal complaints Genitourinary: Genitourinary: Reports no additional female genitourinary complaints Exam Narrative: Exam Narrative: WDWN in NAD skin no rash head ncat lungs clear cor reg no rub abd BS+ nontender and soft ext 2+ edema. Objective Data Vital Signs Vital Signs: Vital Signs - 24 hr 01/12/20 14:31 01/12/20 20:04 01/12/20 20:33 Temperature 35.8 C L 36.4 C L Pulse Rate 89 84 88 Respiratory Rate 18 16 Blood Pressure 148/76 H 130/58 L Pulse Oximetry 96 98 01/12/20 22:15 01/13/20 05:29 01/13/20 08:24 Temperature 36.5 C Pulse Rate 73 88 88 Respiratory Rate 14 20 Blood Pressure 137/88 Pulse Oximetry 94 99 Intake/Output Intake/Output: Intake & Output 01/10/20 01/11/20 01/12/20 01/13/20 23:59 23:59 23:59 23:59
--- NOTE | 2020-01-13 11:14 | PM.PNNEP ---
Progress Note: A&P Assessment and Plan (1) BEAU (acute kidney injury): Code(s): N17.9 - Acute kidney failure, unspecified Status: Acute Assessment and Plan: suspect multifactorial etiology - acute infection (divericulitis + UTI) - relative hypotension - prerenal azotemia (as noted by urine lytes) worsened by diuretic therapy Creatinine has stopped rising. Hopefully will see turn around. Cyclosporin level is still pending. 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 (3) Acute UTI: Code(s): N39.0 - Urinary tract infection, site not specified Status: Acute Assessment and Plan: E. coli by urine culture on ertapenem. Sensitive to penicillins but she is allergic. (4) Diverticulitis: Code(s): K57.92 - Diverticulitis of intestine, part unspecified, without perforation or abscess without bleeding Status: Acute Assessment and Plan: as noted by imaging on admission continue current therapy (5) Acidosis: Code(s): E87.2 - Acidosis Status: Acute Assessment and Plan: Anion gap only 13. This could be dilutional or related to infection. Her lower GFR would also predispose her to type 4 RTA because of lack of ammoniagenesis. CO2 is improving on a bicarb drip. Once above 20 we can switch to p.o.. (6) HTN (hypertension): Qualifiers: Hypertension type: essential hypertension Qualified Code(s): I10 - Essential (primary) hypertension Code(s): I10 - Essential (primary) hypertension Status: Chronic Assessment and Plan: not an issue BP medications on hold Additional Plan Subjective Date/time seen: 01/13/20 11:14 Interval history: Patient is alert. Hard of hearing. Feels okay. Review of Systems Cardiovascular: Cardiovascular: Reports no additional cardiovascular complaints Respiratory: Respiratory: Reports no additional respiratory complaints Gastrointestinal: Gastrointestinal: Reports no additional gastrointestinal complaints Genitourinary: Genitourinary: Reports no additional female genitourinary complaints Exam Narrative: Exam Narrative: WDWN in NAD skin no rash head ncat lungs clear cor reg no rub abd BS+ nontender and soft ext 2+ edema. Objective Data Vital Signs Vital Signs: Vital Signs - 24 hr 01/12/20 14:31 01/12/20 20:04 01/12/20 20:33 Temperature 35.8 C L 36.4 C L Pulse Rate 89 84 88 Respiratory Rate 18 16 Blood Pressure 148/76 H 130/58 L Pulse Oximetry 96 98 01/12/20 22:15 01/13/20 05:29 01/13/20 08:24 Temperature 36.5 C Pulse Rate 73 88 88 Respiratory Rate 14 20 Blood Pressure 137/88 Pulse Oximetry 94 99 Intake/Output Intake/Output: Intake & Output 01/10/20 01/11/20 01/12/20 01/13/20 23:59 23:59 23:59 23:59 Intake Total 1340 3410 2285 1445 Balance 1340 3410 2285 1445 Meds/Results Medications: Active Medications Generic Name Dose Route Start Last Admin Trade Name Freq PRN Reason Stop Dose Admin Acetaminophen 650 mg 01/08/20 16:31 Tylenol Tablet PO Q6H PRN Mild Pain (1-3) or Fever Allopurinol 100 mg 01/08/20 09:00 01/13/20 08:23 Zyloprim PO 100 mg DAILY KATHRIN Administration Aspirin 81 mg 01/08/20 09:00 01/13/20 08:23 Aspirin Ec PO 81 mg DAILY KATHRIN Administration Clonidine HCl 0.2 mg 01/08/20 21:00 01/08/20 20:26 Catapres PO 0.2 mg Q12HR KATHRIN Administration Clopidogrel Bisulfate 75 mg 01/08/20 09:00 01/13/20 08:24 Plavix PO 75 mg DAILY KATHRIN Administration Cyanocobalamin 1,00
[2020-01-13 11:20] LABS: Glucose Point of Care 264 (65-105)
--- NOTE | 2020-01-13 11:27 | PCNFU ---
Nutrition Follow-Up Complete: Inadequate oral intake R/T skin breakdown as evidence by PU on left heel Goal:PO intake of 50% or greater with Hong intake to aid in wound healing Patient is progressing towards goal. We will continue current goal. Pt current nutrition is DBCC. Nutrition recommendation:Agree Last recorded weight is 105.1 kg. Bowel Motility:+BM 01/12 Labs Reviewed:Glu 334,BUN 72,Cr 2.5,Hgb 10.3,Hct 32.7 Meds Noted:Keppra,Novolog, Lantus, Lovenox,B12 Additional Notes: Patient currently eating 50-100% of DBCC. She has Hong BID-orange mixed with lemonade due to Pressure Ulcer noted. Nephrology is following, patient had renal transplant in the past. Agree with current diet orders at this time. Encourage PO intake. Monitoring: po intake, wt, labs, skin every five days
[2020-01-13 13:30] LABS: Glucose Point of Care 268 (65-105)
--- NOTE | 2020-01-13 14:21 | PM.IMPN ---
Progress Note: A&P Assessment and Plan (1) Altered mental status: Code(s): R41.82 - Altered mental status, unspecified Status: Acute Assessment and Plan: Son feels she has these episodes at home and may be same event occuring here. Clinically much better. Continue to monitor. Discussed with son today. (2) Diverticulitis: Code(s): K57.92 - Diverticulitis of intestine, part unspecified, without perforation or abscess without bleeding Status: Acute Assessment and Plan: The patient was started on Levaquin and changed to ertapenem 01/08 when urine cultures returned. Patient's constipation resolved. Continue IV abx. Continue MiraLax. (3) Acute UTI: Code(s): N39.0 - Urinary tract infection, site not specified Status: Acute Assessment and Plan: Urine growing ESBL Ecoli sensitive to Ertapenem. The patient had a history of having drug resistant bacteria . She has a history of a renal transplant. Continue ertapenem Day 5. (4) CHF (congestive heart failure): Qualifiers: Heart failure chronicity: chronic Heart failure type: unspecified Qualified Code(s): I50.9 - Heart failure, unspecified Code(s): I50.9 - Heart failure, unspecified Status: Chronic Assessment and Plan: Amlodipine, Lasix and clonidine are on hold at this time due to low blood pressure. BP tolerating resuming metoprolol. Wheezing now but probably more upper airway. She does not have an O2 requirment. Continue to follow. Check CXR. CXR reviewed and showing pulm edema and effusions. Will need to consider Lasix depending on her BP. (5) CKD stage 3 due to type 1 diabetes mellitus: Code(s): E10.22 - Type 1 diabetes mellitus with diabetic chronic kidney disease; N18.3 - Chronic kidney disease, stage 3 (moderate) Status: Acute Assessment and Plan: Patient has a history of having a renal transplant in the past. She is on prednisone, cyclosporin and mycophenolate. She is also on Flomax. Patient on chronic steroid treatment which was increased to 30 mg daily given the concern for adrenal suppression. Her creatinine unchanged today at 2.5. She is extremely edematous Renal US 01/09 showing no hydro, moderate atrophy R and cortical thinning L. Lasix on hold due to the HoTN and await nephrololgy opinion when to restart. Metabolic nongap acidosis probably RTA that is improving with Bicarb. Will stop IVF and add oral bicarb. Talk with nephrology about resuming Lasix. 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 Glucose reviewed on 01/13/20. Glucose still in the 200's. Continue Accuchecks covering with sliding scale insulin. Lantus was on hold but restarted on 01/10 (had been held due to lethargy and decreased po intake). With infection and steroids, glucose more elevated. Continue Lantus at current dose and will begin to wean steroids. (7) HTN (hypertension): Qualifiers: Hypertension type: essential hypertension Qualified Code(s): I10 - Essential (primary) hypertension Code(s): I10 - Essential (primary) hypertension Status: Chronic Assessment and Plan: Blood pressure reviewed on 01/13/2020. Her blood pressure better. Antihypertensive medications on hold as mentioned above. Tolerating metoprolol. Continue to follow. (8) Seizure disorder: Code(s): G40.909 - Epilepsy, unspecified, not intractable, without status epilepticus Status: Chronic Assessment and Plan: Consider unwitnessed seizures causing her aepisodes of altered mental s
[2020-01-13 16:23] LABS: Glucose Point of Care 229 (65-105)
[2020-01-13] MEDS: ERTAPENEM 1 GM/NS 50 ML 1 GM/50 ML BAG IVPB (16:39)
[2020-01-13] MEDS: SODIUM BICARBONATE TAB 325 MG TABLET PO (16:40)
[2020-01-13 17:00] VITALS: BP 92/60; PULSE 77; RESP 20; TEMP 35.6; O2SAT 93
[2020-01-13 20:11] VITALS: PULSE 71; RESP 16; O2SAT 94
[2020-01-13 21:04] VITALS: BP 100/53; PULSE 80; RESP 20; TEMP 36.1; O2SAT 95
[2020-01-13] MEDS: PRAVASTATIN SODIUM 10 MG TABLET PO (21:41)
[2020-01-13 21:42] VITALS: PULSE 80; RESP 20; O2SAT 95
[2020-01-13 22:05] LABS: Glucose Point of Care 189 (65-105)
[2020-01-14] VITALS (7 sets, daily range): BP systolic 92–151; BP diastolic 64–85; PULSE 76–84; RESP 17–20; TEMP 35.9–36.2; O2SAT 92–94
[2020-01-14] MEDS: INSULIN GLARGINE (*BKC) 100 UNITS/ML 14 UNITS SUB-Q ×2 (01:05→13:21)
[2020-01-14 07:58] LABS: Glucose Point of Care 128 (65-105)
--- NOTE | 2020-01-14 08:25 | PM.IMPN ---
Progress Note: A&P Assessment and Plan (1) Altered mental status: Code(s): R41.82 - Altered mental status, unspecified Status: Acute Assessment and Plan: Son feels she has these episodes at home and may be same event occurring here. Clinically much better and without recurrence. Continue to monitor. (2) Diverticulitis: Code(s): K57.92 - Diverticulitis of intestine, part unspecified, without perforation or abscess without bleeding Status: Acute Assessment and Plan: The patient was started on Levaquin and changed to ertapenem 01/08 when urine cultures returned. Patient's constipation resolved. Continue IV abx. Continue MiraLax. (3) Acute UTI: Code(s): N39.0 - Urinary tract infection, site not specified Status: Acute Assessment and Plan: Urine growing ESBL Ecoli sensitive to Ertapenem. The patient had a history of having drug resistant bacteria . She has a history of a renal transplant. Continue ertapenem Day 6. (4) CHF (congestive heart failure): Qualifiers: Heart failure chronicity: chronic Heart failure type: unspecified Qualified Code(s): I50.9 - Heart failure, unspecified Code(s): I50.9 - Heart failure, unspecified Status: Chronic Assessment and Plan: Amlodipine, Lasix and clonidine are on hold at this time due to low blood pressure. BP tolerating resuming metoprolol. Wheezing now but probably more upper airway. CXR reviewed and showing pulm edema and effusions. She does not have an O2 requirment. Continue to follow. Try to resume diuretics. . (5) CKD stage 3 due to type 1 diabetes mellitus: Code(s): E10.22 - Type 1 diabetes mellitus with diabetic chronic kidney disease; N18.3 - Chronic kidney disease, stage 3 (moderate) Status: Acute Assessment and Plan: Patient has a history of having a renal transplant in the past. She is on prednisone, cyclosporin and mycophenolate. She is also on Flomax. Patient on chronic steroid treatment which was increased to 30 mg daily given the concern for adrenal suppression. Her creatinine better today at 1.9. She is extremely edematous Renal US 01/09 showing no hydro, moderate atrophy R and cortical thinning L. Lasix on hold due to the HoTN. Will try to resume diuretic therapy. Metabolic nongap acidosis probably RTA that improved with Bicarb. IV Fluids with bicarb stopped yesterday and add oral bicarb. Bicarb level 21 now. 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 Glucose reviewed on 01/14/20. Glucose better controlled. Continue Accuchecks covering with sliding scale insulin. Lantus was on hold but restarted on 01/10 (had been held due to lethargy and decreased po intake). Glucose better with weaning of steroids. Continue Lantus at current dose. (7) HTN (hypertension): Qualifiers: Hypertension type: essential hypertension Qualified Code(s): I10 - Essential (primary) hypertension Code(s): I10 - Essential (primary) hypertension Status: Chronic Assessment and Plan: Blood pressure reviewed on 01/14/2020. Blood pressure overall improved. Antihypertensive medications on hold as mentioned above. Tolerating metoprolol. Continue to follow. (8) Seizure disorder: Code(s): G40.909 - Epilepsy, unspecified, not intractable, without status epilepticus Status: Chronic Assessment and Plan: Consider unwitnessed seizures causing her episodes of altered mental status but recurrence. Continue Keppra. (9) DVT prophylaxis: Code(s): Z29.9 -
[2020-01-14] MEDS: METOPROLOL TARTRATE 12.5 MG TABLET PO ×2 (08:45→23:00)
[2020-01-14] MEDS: ASPIRIN 81 MG ENTERIC TABLET PO (08:45)
[2020-01-14] MEDS: FOLIC ACID 1 MG TABLET PO (08:47)
[2020-01-14] MEDS: ENOXAPARIN 30 MG/0.3 ML SYRINGE SUB-Q (08:47)
[2020-01-14] MEDS: CLOPIDOGREL BISULFATE 75 MG TABLET PO (08:47)
[2020-01-14] MEDS: allopurinoL 100 MG TABLET PO (08:47)
[2020-01-14] MEDS: predniSONE 20 MG TABLET PO (08:48)
[2020-01-14] MEDS: polyethylene glycoL 3350 17 GM POWD.PACK PO ×2 (08:48→16:48)
[2020-01-14] MEDS: mycophenolate mofetiL 250 MG CAPSULE PO ×2 (08:49→16:44)
[2020-01-14] MEDS: PANTOPRAZOLE 40 MG TABLET PO ×2 (08:49→23:00)
[2020-01-14] MEDS: levETIRAcetam 500 MG TABLET PO ×2 (08:49→23:00)
[2020-01-14] MEDS: SODIUM BICARBONATE TAB 325 MG TABLET PO ×2 (08:49→16:48)
[2020-01-14 11:16] LABS: Hematocrit 36.1 % (37.0-47.0); Hemoglobin 11.7 g/dL (12.0-15.0); Mean Corpuscular HGB Conc 32.4 g/dl (32-36); Mean Corpuscular Hemoglobin 29.4 pg (26-34); Mean Corpuscular Volume 90.7 fl (80-100); Mean Platelet Volume 10.5 fl (7.4-10.4); Platelet Count Result 299 k/mm3 (150-375); Red Blood Count 3.98 M/mm3 (4.2-5.4); Red Cell Distribution Width 15.5 % (11.5-14.5); White Blood Count 12.1 K/mm3 (4.5-10.0)
[2020-01-14 11:40] LABS: Albumin Level 2.9 g/dL (3.5-5.1); Blood Urea Nitrogen 72 mg/dL (7-17); Calcium 8.9 mg/dL (8.4-10.2); Carbon Dioxide 21 mmol/L (22-30); Chloride 113 mmol/L (98-107); Estimated CRCL calculation 32 ml/min; Estimated Glomerular Filt Rate 26; Glucose 131 mg/dL (65-105); Potassium 4.6 mmol/L (3.4-5.0); Sodium 140 mmol/L (137-145)
[2020-01-14 11:47] LABS: Glucose Point of Care 112 (65-105)
--- NOTE | 2020-01-14 12:07 | P.PNNP_ITS ---
Progress Note: A&P Assessment and Plan (1) BEAU (acute kidney injury): Code(s): N17.9 - Acute kidney failure, unspecified Status: Acute Assessment and Plan: * suspect multifactorial etiology - acute infection (divericulitis + UTI): Getting antibiotics. - relative hypotension - prerenal azotemia (as noted by urine lytes) worsened by diuretic therapy: Now fluid overloaded. * Creatinine is improved. * Cyclosporin level is still pending. * With her swelling I agree with diuretics. * Discussed with Dr. 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 (3) Acute UTI: Code(s): N39.0 - Urinary tract infection, site not specified Status: Acute Assessment and Plan: * E. coli by urine culture * on ertapenem. * Sensitive to penicillins but she is allergic. (4) Diverticulitis: Code(s): K57.92 - Diverticulitis of intestine, part unspecified, without perforation or abscess without bleeding Status: Acute Assessment and Plan: * as noted by imaging on admission * continue current therapy (5) Acidosis: Code(s): E87.2 - Acidosis Status: Acute Assessment and Plan: * Anion gap only 13. * This could be dilutional or related to infection. Her lower GFR would also predispose her to type 4 RTA because of lack of ammoniagenesis. * CO2 is improving. Now on p.o.. (6) HTN (hypertension): Qualifiers: Hypertension type: essential hypertension Qualified Code(s): I10 - Essential (primary) hypertension Code(s): I10 - Essential (primary) hypertension Status: Chronic Assessment and Plan: * not an issue * BP medications on hold Additional Plan Subjective Date/time seen: 01/14/20 12:07 Interval history: Patient is alert. Hard of hearing. Feels okay. No shortness of breath. She is swollen. Review of Systems Cardiovascular: Cardiovascular: Reports no additional cardiovascular complaints Respiratory: Respiratory: Reports no additional respiratory complaints Gastrointestinal: Gastrointestinal: Reports no additional gastrointestinal complaints Genitourinary: Genitourinary: Reports no additional female genitourinary complaints Exam Narrative: Exam Narrative: WDWN in NAD skin no rash head ncat lungs clear cor reg no rub abd BS+ nontender and soft ext 2+ edema. Objective Data Vital Signs Vital Signs: Vital Signs - 24 hr 01/13/20 17:00 01/13/20 20:11 01/13/20 21:04 Temperature 35.6 C L 36.1 C L Pulse Rate 77 71 80 Respiratory Rate 20 16 20 Blood Pressure 92/60 L 100/53 L Pulse Oximetry 93 94 95 01/13/20 21:42 01/14/20 02:24 01/14/20 06:20 Temperature 35.9 C L Pulse Rate 80 79 76 Respiratory Rate 20 17 20 Blood Pressure 148/73 H Pulse Oximetry 95 92 93 01/14/20 08:45 Temperature P
--- NOTE | 2020-01-14 12:07 | PM.PNNEP ---
Progress Note: A&P Assessment and Plan (1) BEAU (acute kidney injury): Code(s): N17.9 - Acute kidney failure, unspecified Status: Acute Assessment and Plan: suspect multifactorial etiology - acute infection (divericulitis + UTI): Getting antibiotics. - relative hypotension - prerenal azotemia (as noted by urine lytes) worsened by diuretic therapy: Now fluid overloaded. Creatinine is improved. Cyclosporin level is still pending. With her swelling I agree with diuretics. Discussed with Dr. 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 (3) Acute UTI: Code(s): N39.0 - Urinary tract infection, site not specified Status: Acute Assessment and Plan: E. coli by urine culture on ertapenem. Sensitive to penicillins but she is allergic. (4) Diverticulitis: Code(s): K57.92 - Diverticulitis of intestine, part unspecified, without perforation or abscess without bleeding Status: Acute Assessment and Plan: as noted by imaging on admission continue current therapy (5) Acidosis: Code(s): E87.2 - Acidosis Status: Acute Assessment and Plan: Anion gap only 13. This could be dilutional or related to infection. Her lower GFR would also predispose her to type 4 RTA because of lack of ammoniagenesis. CO2 is improving. Now on p.o.. (6) HTN (hypertension): Qualifiers: Hypertension type: essential hypertension Qualified Code(s): I10 - Essential (primary) hypertension Code(s): I10 - Essential (primary) hypertension Status: Chronic Assessment and Plan: not an issue BP medications on hold Additional Plan Subjective Date/time seen: 01/14/20 12:07 Interval history: Patient is alert. Hard of hearing. Feels okay. No shortness of breath. She is swollen. Review of Systems Cardiovascular: Cardiovascular: Reports no additional cardiovascular complaints Respiratory: Respiratory: Reports no additional respiratory complaints Gastrointestinal: Gastrointestinal: Reports no additional gastrointestinal complaints Genitourinary: Genitourinary: Reports no additional female genitourinary complaints Exam Narrative: Exam Narrative: WDWN in NAD skin no rash head ncat lungs clear cor reg no rub abd BS+ nontender and soft ext 2+ edema. Objective Data Vital Signs Vital Signs: Vital Signs - 24 hr 01/13/20 17:00 01/13/20 20:11 01/13/20 21:04 Temperature 35.6 C L 36.1 C L Pulse Rate 77 71 80 Respiratory Rate 20 16 20 Blood Pressure 92/60 L 100/53 L Pulse Oximetry 93 94 95 01/13/20 21:42 01/14/20 02:24 01/14/20 06:20 Temperature 35.9 C L Pulse Rate 80 79 76 Respiratory Rate 20 17 20 Blood Pressure 148/73 H Pulse Oximetry 95 92 93 01/14/20 08:45 Temperature Pulse Rate 76 Respiratory Rate Blood Pressure Pulse Oximetry Intake/Output Intake/Output: Intake & Output 01/11/20 01/12/20 01/13/20 01/14/20 23:59 23:59 23:59 23:59 Intake Total 3410 2285 2638 440 Balance 3410 2285 2638 440 Meds/Results Medications: Active Medications Generic Name Dose Route Start Last Admin Trade Name Freq PRN Reason Stop Dose Admin Acetaminophen 650 mg 01/08/20 16:31 Tylenol Tablet PO Q6H PRN Mild Pain (1-3) or Fever Albuterol 2 puff 01/13/20 14:46 Proventil Hfa INHALATION QIDRT PRN Shortness Of Breath Allopurinol 100 mg 01/08/20 09:00 01/14/20 08:47 Zyloprim PO 100 mg DAILY KATHRIN Administration Aspirin 81 mg 01/08/20 09:00 01/14/20 08:45
[2020-01-14 12:12] LABS: Phosphorus 3.9 mg/dL (2.5-4.5)
--- NOTE | 2020-01-14 16:09 | PCPTNOTE ---
The patient treatment was not able to be completed today. PT attempted treatment but patient sleeping soundly and unable to arouse and stay awake for therapy. Will plan to continue treatment per plan of care.
[2020-01-14 16:30] LABS: Glucose Point of Care 196 (65-105)
[2020-01-14] MEDS: ERTAPENEM 1 GM/NS 50 ML 1 GM/50 ML BAG IVPB (16:43)
[2020-01-14] MEDS: BUMETANIDE INJ 1 MG/4 ML VIAL IV PUSH (16:47)
[2020-01-14] MEDS: PRAVASTATIN SODIUM 10 MG TABLET PO (23:00)
[2020-01-14 23:10] LABS: Glucose Point of Care 183 (65-105)
[2020-01-15] VITALS (7 sets, daily range): BP systolic 140–151; BP diastolic 64–75; PULSE 71–83; RESP 18–20; TEMP 35.5–36.4; O2SAT 92–95
[2020-01-15] MEDS: INSULIN GLARGINE (*BKC) 100 UNITS/ML 14 UNITS SUB-Q ×2 (01:00→14:24)
[2020-01-15 06:06] LABS: Basophils Percent Auto 0.3 % (0.2-1.2); Eosinophils Absolute Auto 0.2 K/mm3 (0-0.3); Eosinophils Percent Auto 1.2 % (0-4.4); Hematocrit 35.1 % (37.0-47.0); Immature Granulocyte Absolute 0.91 K/mm3 (0.00-0.031); Immature Granulocyte Percent A 7.5 % (0-0.5); Lymphocytes Absolute Auto 1.24 K/mm3 (0.9-3.2); Lymphocytes Percent Auto 10.2 % (18.3-44.2); Mean Corpuscular HGB Conc 31.3 g/dl (32-36); Mean Corpuscular Hemoglobin 29.2 pg (26-34); Mean Corpuscular Volume 93.1 fl (80-100); Mean Platelet Volume 10.3 fl (7.4-10.4); Monocytes Absolute Auto 0.9 K/mm3 (0.1-0.6); Monocytes Percent Auto 7.3 % (2.6-8.5); Neutrophils Absolute Auto 8.9 K/mm3 (1.3-6.7); Neutrophils Percent Auto 73.5 % (45.5-73.1); Nucleated Red Blood Cells Absolute Auto 0.1 K/mm3 (0.0-0.012); Platelet Count Result 374 k/mm3 (150-375); Red Blood Count 3.77 M/mm3 (4.2-5.4); Red Cell Distribution Width 15.8 % (11.5-14.5); White Blood Count 12.2 K/mm3 (4.5-10.0)
[2020-01-15 06:28] LABS: Albumin Level 2.8 g/dL (3.5-5.1); Blood Urea Nitrogen 76 mg/dL (7-17); Calcium 8.5 mg/dL (8.4-10.2); Carbon Dioxide 26 mmol/L (22-30); Chloride 111 mmol/L (98-107); Estimated CRCL calculation 33 ml/min; Estimated Glomerular Filt Rate 28; Glucose 145 mg/dL (65-105); Magnesium 2.1 mg/dL (1.6-2.3); Phosphorus 3.4 mg/dL (2.5-4.5); Potassium 4.3 mmol/L (3.4-5.0); Sodium 141 mmol/L (137-145)
[2020-01-15 08:16] LABS: Glucose Point of Care 107 (65-105)
[2020-01-15] MEDS: METOPROLOL TARTRATE 12.5 MG TABLET PO ×2 (08:57→20:14)
[2020-01-15] MEDS: ENOXAPARIN 30 MG/0.3 ML SYRINGE SUB-Q (08:58)
[2020-01-15] MEDS: polyethylene glycoL 3350 17 GM POWD.PACK PO ×2 (08:58→17:33)
[2020-01-15] MEDS: FOLIC ACID 1 MG TABLET PO (08:59)
[2020-01-15] MEDS: ASPIRIN 81 MG ENTERIC TABLET PO (08:59)
[2020-01-15] MEDS: predniSONE 20 MG TABLET PO (08:59)
[2020-01-15] MEDS: mycophenolate mofetiL 250 MG CAPSULE PO ×2 (08:59→17:34)
[2020-01-15] MEDS: CLOPIDOGREL BISULFATE 75 MG TABLET PO (08:59)
[2020-01-15] MEDS: PANTOPRAZOLE 40 MG TABLET PO ×2 (08:59→20:14)
[2020-01-15] MEDS: SODIUM BICARBONATE TAB 325 MG TABLET PO (08:59)
[2020-01-15] MEDS: BUMETANIDE INJ 1 MG/4 ML VIAL IV PUSH ×2 (08:59→17:33)
[2020-01-15] MEDS: allopurinoL 100 MG TABLET PO (08:59)
[2020-01-15] MEDS: levETIRAcetam 500 MG TABLET PO ×2 (08:59→20:13)
[2020-01-15 11:35] LABS: Glucose Point of Care 88 (65-105)
--- NOTE | 2020-01-15 11:50 | P.PNNP_ITS ---
Progress Note: A&P Assessment and Plan (1) BEAU (acute kidney injury): Code(s): N17.9 - Acute kidney failure, unspecified Status: Acute Assessment and Plan: * suspect multifactorial etiology - acute infection (divericulitis + UTI): Getting antibiotics. - relative hypotension - prerenal azotemia (as noted by urine lytes) worsened by diuretic therapy: Now fluid overloaded. * Creatinine is improved to 1.8. * Cyclosporin level is still pending. * She is getting diuretics. Output incomplete. 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 (3) Acute UTI: Code(s): N39.0 - Urinary tract infection, site not specified Status: Acute Assessment and Plan: * E. coli by urine culture * on ertapenem. * Sensitive to penicillins but she is allergic. (4) Diverticulitis: Code(s): K57.92 - Diverticulitis of intestine, part unspecified, without perforation or abscess without bleeding Status: Acute Assessment and Plan: * as noted by imaging on admission * continue current therapy (5) Acidosis: Code(s): E87.2 - Acidosis Status: Acute Assessment and Plan: * Resolved. * CO2 is up to 26. * We can cut back on the bicarbonate supplement. (6) HTN (hypertension): Qualifiers: Hypertension type: essential hypertension Qualified Code(s): I10 - Essential (primary) hypertension Code(s): I10 - Essential (primary) hypertension Status: Chronic Assessment and Plan: * not an issue * BP medications on hold Additional Plan Subjective Date/time seen: 01/15/20 11:50 Interval history: Patient is alert. Hard of hearing. Feels okay. Denies any dyspnea. She is swollen in legs and thighs.. Review of Systems Cardiovascular: Cardiovascular: Reports no additional cardiovascular complaints Respiratory: Respiratory: Reports no additional respiratory complaints Gastrointestinal: Gastrointestinal: Reports no additional gastrointestinal complaints Genitourinary: Genitourinary: Reports no additional female genitourinary complaints Exam Narrative: Exam Narrative: WDWN in NAD skin no rash head ncat lungs clear cor reg no rub abd BS+ nontender and soft ext 2+ edema. Objective Data Vital Signs Vital Signs: Vital Signs - 24 hr 01/14/20 14:33 01/14/20 21:09 01/14/20 23:00 Temperature 36.2 C L 36.2 C L Pulse Rate 76 84 84 Respiratory Rate 20 20 20 Blood Pressure 92/64 L 151/85 H Pulse Oximetry 94 92 92 01/15/20 06:19 01/15/20 08:57 01/15/20 08:59 Temperature 35.5 C L Pulse Rate 71 76 76 Respiratory Rate 20 20 Blood Pressure 140/64 Pulse Oximetry 92 93 Intake/Output Intake/Output: Intake & Output 01/12/20 01/13/20 01/14/20 01/15/20 23:59 23:59 23:59 23:59 Intake Total 6854 2189
--- NOTE | 2020-01-15 11:50 | PM.PNNEP ---
Progress Note: A&P Assessment and Plan (1) BEAU (acute kidney injury): Code(s): N17.9 - Acute kidney failure, unspecified Status: Acute Assessment and Plan: suspect multifactorial etiology - acute infection (divericulitis + UTI): Getting antibiotics. - relative hypotension - prerenal azotemia (as noted by urine lytes) worsened by diuretic therapy: Now fluid overloaded. Creatinine is improved to 1.8. Cyclosporin level is still pending. She is getting diuretics. Output incomplete. 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 (3) Acute UTI: Code(s): N39.0 - Urinary tract infection, site not specified Status: Acute Assessment and Plan: E. coli by urine culture on ertapenem. Sensitive to penicillins but she is allergic. (4) Diverticulitis: Code(s): K57.92 - Diverticulitis of intestine, part unspecified, without perforation or abscess without bleeding Status: Acute Assessment and Plan: as noted by imaging on admission continue current therapy (5) Acidosis: Code(s): E87.2 - Acidosis Status: Acute Assessment and Plan: Resolved. CO2 is up to 26. We can cut back on the bicarbonate supplement. (6) HTN (hypertension): Qualifiers: Hypertension type: essential hypertension Qualified Code(s): I10 - Essential (primary) hypertension Code(s): I10 - Essential (primary) hypertension Status: Chronic Assessment and Plan: not an issue BP medications on hold Additional Plan Subjective Date/time seen: 01/15/20 11:50 Interval history: Patient is alert. Hard of hearing. Feels okay. Denies any dyspnea. She is swollen in legs and thighs.. Review of Systems Cardiovascular: Cardiovascular: Reports no additional cardiovascular complaints Respiratory: Respiratory: Reports no additional respiratory complaints Gastrointestinal: Gastrointestinal: Reports no additional gastrointestinal complaints Genitourinary: Genitourinary: Reports no additional female genitourinary complaints Exam Narrative: Exam Narrative: WDWN in NAD skin no rash head ncat lungs clear cor reg no rub abd BS+ nontender and soft ext 2+ edema. Objective Data Vital Signs Vital Signs: Vital Signs - 24 hr 01/14/20 14:33 01/14/20 21:09 01/14/20 23:00 Temperature 36.2 C L 36.2 C L Pulse Rate 76 84 84 Respiratory Rate 20 20 20 Blood Pressure 92/64 L 151/85 H Pulse Oximetry 94 92 92 01/15/20 06:19 01/15/20 08:57 01/15/20 08:59 Temperature 35.5 C L Pulse Rate 71 76 76 Respiratory Rate 20 20 Blood Pressure 140/64 Pulse Oximetry 92 93 Intake/Output Intake/Output: Intake & Output 01/12/20 01/13/20 01/14/20 01/15/20 23:59 23:59 23:59 23:59 Intake Total 2285 2638 830 100 Balance 2285 2638 830 100 Meds/Results Medications: Active Medications Generic Name Dose Route Start Last Admin Trade Name Freq PRN Reason Stop Dose Admin Acetaminophen 650 mg 01/08/20 16:31 Tylenol Tablet PO Q6H PRN Mild Pain (1-3) or Fever Albuterol 2 puff 01/13/20 14:46 Proventil Hfa INHALATION QIDRT PRN Shortness Of Breath Allopurinol 100 mg 01/08/20 09:00 01/15/20 08:59 Zyloprim PO 100 mg DAILY KATHRIN Administration Aspirin 81 mg 01/08/20 09:00 01/15/20 08:59 Aspirin Ec PO 81 mg DAILY KATHRIN Administration Bumetanide 1 mg 01/15/20 09:00 01/15/20 08:59 Bumex Inj IV PUSH 1 mg BID KATHRIN Administration Clonidine HCl 0.2 mg 01/08/20 21:00 01/08/20 20:26 Catapre
--- NOTE | 2020-01-15 13:31 | PM.IMPN ---
Progress Note: A&P Assessment and Plan (1) Altered mental status: Code(s): R41.82 - Altered mental status, unspecified Status: Acute Assessment and Plan: Son feels she has these episodes at home and may be same event occurring here. Clinically much better and without recurrence. Continue to monitor. (2) Diverticulitis: Code(s): K57.92 - Diverticulitis of intestine, part unspecified, without perforation or abscess without bleeding Status: Acute Assessment and Plan: The patient was started on Levaquin and changed to ertapenem 01/08 when urine cultures returned. Patient's constipation resolved. Continue IV abx. Continue MiraLax. (3) Acute UTI: Code(s): N39.0 - Urinary tract infection, site not specified Status: Acute Assessment and Plan: Urine growing ESBL Ecoli sensitive to Ertapenem. The patient had a history of having drug resistant bacteria . She has a history of a renal transplant. WBC unchanged but related to steroids. Continue ertapenem Day 7. Will stop abx after today. (4) CHF (congestive heart failure): Qualifiers: Heart failure chronicity: chronic Heart failure type: unspecified Qualified Code(s): I50.9 - Heart failure, unspecified Code(s): I50.9 - Heart failure, unspecified Status: Chronic Assessment and Plan: Amlodipine, Lasix and clonidine are on hold at this time due to low blood pressure. BP tolerating resuming metoprolol. CXR 01/12 showing pulm edema and effusions. Diuretics started. Wheezing better. She does not have an O2 requirement. Continue to follow. (5) CKD stage 3 due to type 1 diabetes mellitus: Code(s): E10.22 - Type 1 diabetes mellitus with diabetic chronic kidney disease; N18.3 - Chronic kidney disease, stage 3 (moderate) Status: Acute Assessment and Plan: Patient has a history of having a renal transplant in the past. Renal US 01/09 showing no hydro, moderate atrophy R and cortical thinning L. She is on prednisone, cyclosporin and mycophenolate. She is also on Flomax. Patient on chronic steroid treatment which was increased to 30 mg daily given the concern for adrenal suppression. Her creatinine better today at 1.8. Edema improving. Diuretics resumed. Bicarb normal now. Continue diuretic therapy and bicarb. 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 Glucose reviewed on 01/15/20. Glucose better controlled. Continue Accuchecks covering with sliding scale insulin. Lantus was on hold but restarted on 01/10 (had been held due to lethargy and decreased po intake). Glucose better with weaning of steroids. Continue Lantus at current dose. Watch for lows as we continue to wean steroids. (7) HTN (hypertension): Qualifiers: Hypertension type: essential hypertension Qualified Code(s): I10 - Essential (primary) hypertension Code(s): I10 - Essential (primary) hypertension Status: Chronic Assessment and Plan: Blood pressure reviewed on 01/15/2020. Blood pressure climbing slowly. Antihypertensive medications on hold as mentioned above. Tolerating metoprolol. Continue to follow. (8) Seizure disorder: Code(s): G40.909 - Epilepsy, unspecified, not intractable, without status epilepticus Status: Chronic Assessment and Plan: Consider unwitnessed seizures causing her episodes of altered mental status but without recurrence. Continue Keppra. (9) DVT prophylaxis: Code(s): Z29.9 - Encounter for prophylactic measures, unspecified Status: Acute
[2020-01-15] MEDS: ERTAPENEM 1 GM/NS 50 ML 1 GM/50 ML BAG IVPB (15:27)
--- NOTE | 2020-01-15 15:52 | PCOTNOTE ---
Patient refused treatment this session due to fatigue.
[2020-01-15 16:27] LABS: Glucose Point of Care 129 (65-105)
[2020-01-15 19:26] LABS: Cyclosporine 124 mcg/L (100-300)
[2020-01-15] MEDS: PRAVASTATIN SODIUM 10 MG TABLET PO (20:14)
[2020-01-15 21:38] LABS: Glucose Point of Care 202 (65-105)
[2020-01-16] MEDS: INSULIN GLARGINE (*BKC) 100 UNITS/ML 14 UNITS SUB-Q ×2 (01:10→14:25)
[2020-01-16 05:45] VITALS: BP 136/115; PULSE 84; RESP 20; TEMP 36.3; O2SAT 94
[2020-01-16 05:46] LABS: Basophils Absolute Auto 0.1 K/mm3 (0.0-0.1); Basophils Percent Auto 0.4 % (0.2-1.2); Eosinophils Absolute Auto 0.1 K/mm3 (0-0.3); Eosinophils Percent Auto 0.4 % (0-4.4); Hematocrit 36.5 % (37.0-47.0); Hemoglobin 11.5 g/dL (12.0-15.0); Immature Granulocyte Absolute 0.93 K/mm3 (0.00-0.031); Lymphocytes Absolute Auto 0.98 K/mm3 (0.9-3.2); Lymphocytes Percent Auto 8.4 % (18.3-44.2); Mean Corpuscular HGB Conc 31.5 g/dl (32-36); Mean Corpuscular Hemoglobin 29.5 pg (26-34); Mean Corpuscular Volume 93.6 fl (80-100); Mean Platelet Volume 10.5 fl (7.4-10.4); Monocytes Absolute Auto 0.7 K/mm3 (0.1-0.6); Monocytes Percent Auto 6.2 % (2.6-8.5); Neutrophils Absolute Auto 8.9 K/mm3 (1.3-6.7); Neutrophils Percent Auto 76.6 % (45.5-73.1); Nucleated Red Blood Cells Absolute Auto 0.1 K/mm3 (0.0-0.012); Nucleated Red Blood Cells Perc 1.2 % (0.0-0.2); Platelet Count Result 382 k/mm3 (150-375); Red Cell Distribution Width 16.1 % (11.5-14.5); White Blood Count 11.6 K/mm3 (4.5-10.0)
[2020-01-16 06:04] LABS: Blood Urea Nitrogen 84 mg/dL (7-17); Calcium 8.9 mg/dL (8.4-10.2); Carbon Dioxide 30 mmol/L (22-30); Chloride 109 mmol/L (98-107); Estimated CRCL calculation 32 ml/min; Estimated Glomerular Filt Rate 28; Glucose 209 mg/dL (65-105); Phosphorus 3.5 mg/dL (2.5-4.5); Potassium 4.2 mmol/L (3.4-5.0); Sodium 143 mmol/L (137-145)
[2020-01-16 07:33] LABS: Glucose Point of Care 173 (65-105)
[2020-01-16] MEDS: polyethylene glycoL 3350 17 GM POWD.PACK PO (09:09)
[2020-01-16] MEDS: levETIRAcetam 500 MG TABLET PO (09:09)
[2020-01-16 09:10] VITALS: PULSE 84; RESP 18; O2SAT 96
[2020-01-16] MEDS: METOPROLOL TARTRATE 12.5 MG TABLET PO (09:10)
[2020-01-16] MEDS: SODIUM BICARBONATE TAB 325 MG TABLET PO (09:10)
[2020-01-16] MEDS: PANTOPRAZOLE 40 MG TABLET PO (09:10)
[2020-01-16] MEDS: FOLIC ACID 1 MG TABLET PO (09:11)
[2020-01-16] MEDS: predniSONE 20 MG TABLET PO (09:11)
[2020-01-16] MEDS: ASPIRIN 81 MG ENTERIC TABLET PO (09:11)
[2020-01-16] MEDS: BUMETANIDE INJ 1 MG/4 ML VIAL IV PUSH (09:11)
[2020-01-16] MEDS: CYANOCOBALAMIN 1,000 MCG TABLET 1000 MCG PO (09:11)
[2020-01-16] MEDS: ENOXAPARIN 30 MG/0.3 ML SYRINGE SUB-Q (09:11)
[2020-01-16] MEDS: CLOPIDOGREL BISULFATE 75 MG TABLET PO (09:11)
[2020-01-16] MEDS: mycophenolate mofetiL 250 MG CAPSULE PO ×2 (09:11→16:53)
[2020-01-16] MEDS: allopurinoL 100 MG TABLET PO (09:11)
[2020-01-16] MEDS: ERGOCALCIFEROL 50,000 UNIT CAPSULE 50000 UNITS PO (09:12)
--- NOTE | 2020-01-16 10:31 | PCOTNOTE ---
Attempted to see patient this am, however patient refused. No! I'm ready to go home! Encouraged patient to participate, however patient still declined.
[2020-01-16 11:19] LABS: Glucose Point of Care 216 (65-105)
[2020-01-16] MEDS: INSULIN ASPART (*BKC) 100 UNITS/ML SUB-Q ×2 (11:49→16:54)
--- NOTE | 2020-01-16 14:12 | PM.DS ---
DS: Admitting Diagnosis Admitting Diagnosis Admitting Diagnosis: Diverticulitis of intestine, part unspecified, without perforation or abscess without bleeding DS: Discharge Diagnosis Discharge Diagnosis (1) Altered mental status: Code(s): R41.82 - Altered mental status, unspecified Status: Acute Assessment and Plan: Early in her hospital course, patient had episodes of fatigue and hypersomnolence. Workup was unrevealing. We considered unrecognized seizures, related to the infectious process or from SRINI. Son feels she has these episodes at home and may be same event occurring here. Clinically much better and without recurrence. We continued her Keppra. We continued BiPAP here. I spoke with son on day of discharge and he was requesting BiPAP unit. Explained that he should contact the PCP to arrange for new unit or new study (may need re-titration possibly). (2) Diverticulitis: Code(s): K57.92 - Diverticulitis of intestine, part unspecified, without perforation or abscess without bleeding Status: Acute Assessment and Plan: Patient had abdominal pain on admission. She is immunosuppressed. CT scan on admission showing sigmoid diverticulosis; pericolic increased fat density in the distal sigmoid area may be consistent with sigmoid diverticulitis but no abscess or intraperitoneal free air is evident. Also noted was constipation. The patient was started on Levaquin and changed to ertapenem 01/08 when urine cultures returned. Patient's constipation resolved with MiraLax. (3) Acute UTI: Code(s): N39.0 - Urinary tract infection, site not specified Status: Acute Assessment and Plan: Urine growing ESBL Ecoli sensitive to Ertapenem. The patient had a history of having drug resistant bacteria . She has a history of a renal transplant. BCx negative. WBC climbed to 19K before trending down to 11K (with some elevation related to steroids). She completed a course of ertapenem. (4) CHF (congestive heart failure): Qualifiers: Heart failure chronicity: acute on chronic Heart failure type: diastolic Qualified Code(s): I50.33 - Acute on chronic diastolic (congestive) heart failure Code(s): I50.9 - Heart failure, unspecified Status: Chronic Assessment and Plan: Echocardiogram in March 2019, estimated to be 60-65 percent. Grade 1 diastolic dysfunction was noted as well as moderate pulmonary hypertension with an estimated peak RVSP of 48 mmHg. Amlodipine, Lasix and clonidine are on hold at this time due to low blood pressure. BP tolerated resuming metoprolol. CXR 01/12 showing pulmonary edema and effusions. Diuretics started back and she tolerated this well. Wheezing better. She did not have an O2 requirement. (5) BEAU (acute kidney injury): Code(s): N17.9 - Acute kidney failure, unspecified Status: Acute Assessment and Plan: Cr 1.7 on admission which is around her baseline values. Her Cr lora to 2.5 possibly related to the infection. Diuretics and antiHTN medications held, Cr improved to 1.8. Edema developed and pulmonary edema by CXR. Diuretics resumed with improvement in her symptoms. She asl developed a nongap metabolic acidosis probably related to RTA. Bicarb started and this improved as well. (6) CKD stage 3 due to type 1 diabetes mellitus: Code(s): E10.22 - Type 1 diabetes mellitus with diabetic chronic kidney disease; N18.3 - Chronic kidney disease, stage 3 (moderate) Status: Acute Assessment and Plan: Patient has a history of having a renal transplant and is immunosuppressed for this reason. Renal US 01/09 showing no hydro, moderate atrophy R and cortical thinning L. She is on prednisone, cyclosporin and mycophenolate. She is also on Flomax. Patient on chronic steroid treatment which was increased to 30 mg daily given the concern for adrenal suppression (in regards to the relative HoTN). He
[2020-01-16 14:15] VITALS: BP 152/90; PULSE 84; RESP 18; TEMP 36.7; O2SAT 96
[2020-01-16] MEDS: ERTAPENEM 1 GM/NS 50 ML 1 GM/50 ML BAG IVPB (15:34)
--- NOTE | 2020-01-16 15:45 | P.PNNP_ITS ---
Progress Note: A&P Assessment and Plan (1) BEAU (acute kidney injury): Code(s): N17.9 - Acute kidney failure, unspecified Status: Acute Assessment and Plan: * suspect multifactorial etiology - acute infection (divericulitis + UTI): Getting antibiotics. - relative hypotension - prerenal azotemia (as noted by urine lytes) worsened by diuretic therapy: Now fluid overloaded. * Creatinine is improved to 1.8. * Cyclosporin level is one hundred twenty-four. This is acceptable. * Continue diuretics. * Okay for discharge from kidney standpoint. 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 (3) Acute UTI: Code(s): N39.0 - Urinary tract infection, site not specified Status: Acute Assessment and Plan: * E. coli by urine culture * Finished with antibiotics. (4) Diverticulitis: Code(s): K57.92 - Diverticulitis of intestine, part unspecified, without perforation or abscess without bleeding Status: Acute Assessment and Plan: * as noted by imaging on admission * Finished with antibiotics. (5) Acidosis: Code(s): E87.2 - Acidosis Status: Acute Assessment and Plan: * Resolved. * CO2 is up to 26. * We can cut back on the bicarbonate supplement. (6) HTN (hypertension): Qualifiers: Hypertension type: essential hypertension Qualified Code(s): I10 - Essential (primary) hypertension Code(s): I10 - Essential (primary) hypertension Status: Chronic Assessment and Plan: * not an issue * BP medications on hold Additional Plan Subjective Date/time seen: 01/16/20 15:45 Interval history: Patient is alert. Hard of hearing. Denies shortness of breath. Review of Systems Cardiovascular: Cardiovascular: Reports no additional cardiovascular complaints Respiratory: Respiratory: Reports no additional respiratory complaints Gastrointestinal: Gastrointestinal: Reports no additional gastrointestinal complaints Genitourinary: Genitourinary: Reports no additional female genitourinary complaints Exam Narrative: Exam Narrative: WDWN in NAD skin no rash or subcu nodules head ncat lungs clear bilaterally cor reg no rub abd BS+ nontender and soft ext 2+ edema. Objective Data Vital Signs Vital Signs: Vital Signs - 24 hr 01/15/20 20:12 01/15/20 20:14 01/15/20 20:35 Temperature 36.4 C L Pulse Rate 83 83 83 Respiratory Rate 20 20 Blood Pressure 141/65 H Pulse Oximetry 95 95 01/16/20 05:45 01/16/20 09:10 01/16/20 14:15 Temperature 36.3 C L 36.7 C Pulse Rate 84 84 84 Respiratory Rate 20 18 Blood Pressure 136/115 H 152/90 H Pulse Oximetry 94 96 Intake/Output Intake/Output: Intake & Output 01/13/20 01/14/20 01/15/20 01/16/20 23:59 23:59 23:59 23:59 Intake Total 2638 830 540 440
--- NOTE | 2020-01-16 15:45 | PM.PNNEP ---
Progress Note: A&P Assessment and Plan (1) BEAU (acute kidney injury): Code(s): N17.9 - Acute kidney failure, unspecified Status: Acute Assessment and Plan: suspect multifactorial etiology - acute infection (divericulitis + UTI): Getting antibiotics. - relative hypotension - prerenal azotemia (as noted by urine lytes) worsened by diuretic therapy: Now fluid overloaded. Creatinine is improved to 1.8. Cyclosporin level is one hundred twenty-four. This is acceptable. Continue diuretics. Okay for discharge from kidney standpoint. 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 (3) Acute UTI: Code(s): N39.0 - Urinary tract infection, site not specified Status: Acute Assessment and Plan: E. coli by urine culture Finished with antibiotics. (4) Diverticulitis: Code(s): K57.92 - Diverticulitis of intestine, part unspecified, without perforation or abscess without bleeding Status: Acute Assessment and Plan: as noted by imaging on admission Finished with antibiotics. (5) Acidosis: Code(s): E87.2 - Acidosis Status: Acute Assessment and Plan: Resolved. CO2 is up to 26. We can cut back on the bicarbonate supplement. (6) HTN (hypertension): Qualifiers: Hypertension type: essential hypertension Qualified Code(s): I10 - Essential (primary) hypertension Code(s): I10 - Essential (primary) hypertension Status: Chronic Assessment and Plan: not an issue BP medications on hold Additional Plan Subjective Date/time seen: 01/16/20 15:45 Interval history: Patient is alert. Hard of hearing. Denies shortness of breath. Review of Systems Cardiovascular: Cardiovascular: Reports no additional cardiovascular complaints Respiratory: Respiratory: Reports no additional respiratory complaints Gastrointestinal: Gastrointestinal: Reports no additional gastrointestinal complaints Genitourinary: Genitourinary: Reports no additional female genitourinary complaints Exam Narrative: Exam Narrative: WDWN in NAD skin no rash or subcu nodules head ncat lungs clear bilaterally cor reg no rub abd BS+ nontender and soft ext 2+ edema. Objective Data Vital Signs Vital Signs: Vital Signs - 24 hr 01/15/20 20:12 01/15/20 20:14 01/15/20 20:35 Temperature 36.4 C L Pulse Rate 83 83 83 Respiratory Rate 20 20 Blood Pressure 141/65 H Pulse Oximetry 95 95 01/16/20 05:45 01/16/20 09:10 01/16/20 14:15 Temperature 36.3 C L 36.7 C Pulse Rate 84 84 84 Respiratory Rate 20 18 Blood Pressure 136/115 H 152/90 H Pulse Oximetry 94 96 Intake/Output Intake/Output: Intake & Output 01/13/20 01/14/20 01/15/20 01/16/20 23:59 23:59 23:59 23:59 Intake Total 2638 830 540 440 Balance 2638 830 540 440 Meds/Results Medications: Active Medications Generic Name Dose Route Start Last Admin Trade Name Freq PRN Reason Stop Dose Admin Acetaminophen 650 mg 01/08/20 16:31 Tylenol Tablet PO Q6H PRN Mild Pain (1-3) or Fever Albuterol 2 puff 01/13/20 14:46 Proventil Hfa INHALATION QIDRT PRN Shortness Of Breath Allopurinol 100 mg 01/08/20 09:00 01/16/20 09:11 Zyloprim PO 100 mg DAILY KATHRIN Administration Aspirin 81 mg 01/08/20 09:00 01/16/20 09:11 Aspirin Ec PO 81 mg DAILY KATHRIN Administration Bumetanide 1 mg 01/15/20 09:00 01/16/20 09:11 Bumex Inj IV PUSH 1 mg BID KATHRIN Administration Clonidine HCl 0.2 mg 01/08/20 21:00 01/08/20 20:26 Catapres
[2020-01-16 16:52] LABS: Glucose Point of Care 225 (65-105)
[2020-01-18 11:13] LABS: Chloride Rand Ur 24 mmol/L (32-290); Chloride/Creatinine Rand Ur 35 (38-318); Creatinine Random Urine 68 mg/dL (20-275)
== END 2020-01-16 19:10 | disposition home health service (06) | DRG 392 ==
LOC: ANHED 08:00 → ANHIMU 11:23 → ANH3MED 01-08 15:51
PROVIDERS: Internal Medicine; Internal Medicine Nephrology; Nurse Practitioner; Admitting Provider Family Medicine; Emergency Provider Emergency Medicine; PCP Family Medicine; Visit Provider Internal Medicine
DX: K57.32 Diverticulitis of large intestine without perforation or abscess without bleeding (principal); N39.0 Urinary tract infection, site not specified; N17.9 Acute kidney failure, unspecified; I13.0 Hypertensive heart and chronic kidney disease with heart failure and stage 1 through stage 4 chronic kidney disease, or unspecified chronic kidney disease; I50.32 Chronic diastolic (congestive) heart failure; E87.2 Acidosis; Z94.0 Kidney transplant status; B96.20 Unspecified Escherichia coli [E. coli] as the cause of diseases classified elsewhere; E10.22 Type 1 diabetes mellitus with diabetic chronic kidney disease; N18.3 Chronic kidney disease, stage 3 (moderate); E10.42 Type 1 diabetes mellitus with diabetic polyneuropathy; G47.33 Obstructive sleep apnea (adult) (pediatric); G40.909 Epilepsy, unspecified, not intractable, without status epilepticus; E87.5 Hyperkalemia; E78.5 Hyperlipidemia, unspecified; K21.9 Gastro-esophageal reflux disease without esophagitis; D63.1 Anemia in chronic kidney disease; Z95.5 Presence of coronary angioplasty implant and graft; Z79.82 Long term (current) use of aspirin; Z89.511 Acquired absence of right leg below knee; Z90.49 Acquired absence of other specified parts of digestive tract; Z98.42 Cataract extraction status, left eye; Z98.41 Cataract extraction status, right eye; Z99.3 Dependence on wheelchair; Z79.4 Long term (current) use of insulin
CPT/HCPCS: 36415; 36600; 51701; 70450; 71045; 74176; 76775; 80048; 80053; 80069; 80158; 80177; 81001; 81050; 82010; 82436; 82550; 82570; 82805; 83036; 83605; 83690; 83735; 84133; 84156; 84300; 84443; 85025; 85027; 85610; 85730; 85999; 87077; 87086; 87088; 87186; 96361; 96365; 96366; 96367; 96375; 96376; 97110; 97162; 97166; 97168; 97530; 99291; A9270; G0378; J0131; J0696; J1335; J1650; J1815; J1956; J2405; J2930; J7030; J7040; J7512; J7515; J7517

== ENCOUNTER 2020-02-09 10:54 | Outpatient (RCR) | payer MEDICARE, OTHER, SELFPAY ==
[2020-02-09 11:52] LABS: Basophils Absolute Auto 0.1 K/mm3 (0.0-0.1); Basophils Percent Auto 0.8 % (0.2-1.2); Eosinophils Absolute Auto 0.4 K/mm3 (0-0.3); Eosinophils Percent Auto 4.6 % (0-4.4); Hematocrit 36.5 % (37.0-47.0); Hemoglobin 11.6 g/dL (12.0-15.0); Immature Granulocyte Absolute 0.07 K/mm3 (0.00-0.031); Immature Granulocyte Percent A 0.9 % (0-0.5); Lymphocytes Absolute Auto 1.67 K/mm3 (0.9-3.2); Lymphocytes Percent Auto 21.1 % (18.3-44.2); Mean Corpuscular HGB Conc 31.8 g/dl (32-36); Mean Corpuscular Hemoglobin 29.7 pg (26-34); Mean Corpuscular Volume 93.4 fl (80-100); Mean Platelet Volume 9.8 fl (7.4-10.4); Monocytes Absolute Auto 0.8 K/mm3 (0.1-0.6); Monocytes Percent Auto 10.6 % (2.6-8.5); Neutrophils Absolute Auto 4.9 K/mm3 (1.3-6.7); Platelet Count Result 494 k/mm3 (150-375); Red Blood Count 3.91 M/mm3 (4.2-5.4); Red Cell Distribution Width 14.5 % (11.5-14.5); White Blood Count 7.9 K/mm3 (4.5-10.0)
[2020-02-09 13:18] LABS: Blood Urea Nitrogen 46 mg/dL (7-17); Calcium 8.7 mg/dL (8.4-10.2); Carbon Dioxide 32 mmol/L (22-30); Chloride 103 mmol/L (98-107); Estimated Glomerular Filt Rate 30; Glucose 116 mg/dL (65-105); Potassium 3.3 mmol/L (3.4-5.0); Sodium 138 mmol/L (137-145)
[2020-02-12 00:32] LABS: Cyclosporine 135 mcg/L (100-300)
== END 2020-05-09 23:59 | disposition home or self-care (01) ==
LOC: ANHLAB 10:54
PROVIDERS: PCP Family Medicine
DX: N18.3 Chronic kidney disease, stage 3 (moderate) (principal); D63.1 Anemia in chronic kidney disease; Z48.22 Encounter for aftercare following kidney transplant
CPT/HCPCS: 36415; 80048; 80158; 85025

== ENCOUNTER 2020-04-11 07:28 | Inpatient (IN) | payer MEDICARE, OTHER, SELFPAY ==
[2020-04-11] VITALS (19 sets, daily range): BP systolic 99–133; BP diastolic 31–90; PULSE 68–95; RESP 16–24; TEMP 36.1–36.8; O2SAT 68–100; BMI 36.8
--- NOTE | ~2020-04-11 | XR_ITS ---
EXAMINATION: XR chest 1V portable DATE: 04/11/2020 08:26 INDICATION: Shortness of breath. TECHNIQUE: A single frontal view of the chest was obtained on 2 radiographs. COMPARISON: Chest single view 01/13/2020, CT abdomen and pelvis 01/07/2020 FINDINGS: There are small right and moderate-sized left pleural effusions. There are airspace opaciti es at the lung bases. No pneumothorax. Cardiomegaly is noted. A calcified left hilar lymph node is co nsistent with old granulomatous disease. IMPRESSION: 1. Chronic small right and moderate-sized left pleural effusions. 2. Airspace opacities at the lung bases, consistent with atelectasis versus pneumonia. 3. Cardiomegaly. Reviewed, dictated and finalized at location B. IMPRESSION: 1. Chronic small right and moderate-sized left pleural effusions. 2. Airspace opacities at the lung bases, consistent with atelectasis versus pne umonia. 3. Cardiomegaly.
--- NOTE | ~2020-04-11 | US_ITS ---
EXAMINATION: US venous doppler [facility] DATE: 04/11/2020 16:26 INDICATION: Lower limb edema. TECHNIQUE: Grayscale ultrasound images without and with compression and Doppler ultrasound images of the bilateral lower extremity veins were obtained. COMPARISON: Ultrasound 02/13/2017, 12/18/2015 FINDINGS: The visualized portions of right profunda (deep) femoral vein, femoral vein, and greater saphenous ve in outflow are patent. There is thrombus in right common femoral vein. The visualized portions of left common femoral vein, profunda femoral vein, femoral vein, popliteal v ein, peroneal veins, posterior tibial veins, and greater saphenous vein outflow are patent. IMPRESSION: 1. Deep vein thrombosis involving right common femoral vein. Reviewed, dictated and finalized at location B.
--- NOTE | ~2020-04-11 | XR_ITS ---
EXAMINATION: XR toe 1st LT min 2V DATE: 04/11/2020 16:32 INDICATION: Left toe ulcer. Diabetic. TECHNIQUE: Dorsal plantar, lateral and 2 oblique views of the left great toe were obtained. COMPARISON: Left foot radiographs dated 09/19/2019 FINDINGS: Diffuse osteopenia. Unchanged hallux valgus. No fracture. Unchanged chronic deformity at the head of the first proximal phalanx and base of the distal phalanx which could represent sequela of prior oste otomies, fractures or chronic septic arthritis. No evident osteolysis, cortical erosion or periosteal reaction to suggest more acute osteomyelitis. Mild polyarticular osteoarthritis at many of the remai ron joints in the forefoot. Extensive vascular calcifications. IMPRESSION: Chronic deformity at the head of the first proximal phalanx and base of the first distal phalanx whic h could represent sequela of old trauma, surgery or prior infection. No evident acute osseous abnorma lity. Reviewed, dictated and finalized at location A. IMPRESSION: Chronic deformity at the head of the first proximal phalanx and base of the fir st distal phalanx which could represent sequela of old trauma, surgery or prior infection. No evident acute osseous abnormality.
--- NOTE | 2020-04-11 07:37 | ECG_ITS ---
Measurements Intervals [place] Rate: 84 P: 45 [place]: 137 QRS: 7 QRSD: 93 T: 179 QT: 371 QTc: 439 Interpretive Statements SINUS RHYTHM POSSIBLE LEFT ATRIAL ENLARGEMENT CANNOT RULE OUT SEPTAL INFARCT, AGE INDETERMINATE ST-T WAVE ABNORMALITY IN LAT/HIGH LAT LEADS- CONSIDER ISCHEMIA ABNORMAL ECG Electronically Signed On 04-11-2020 10:09:30 CDT by Scott Alvarado D.O.
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
--- NOTE | 2020-04-11 07:53 | PCRCNOTE ---
ARRIVED TO DRAW ABG AND WAS UNABLE TO ENTER THE ROOM DUE TO A PROCEDURE.
[2020-04-11 08:00] LABS: Glucose Point of Care 220 (65-105)
[2020-04-11 08:05] LABS: Alveolar/Arterial O2 Gradient 31.5 mmHg; Carboxyhemoglobin 0.3 % THb (0-2.0); Fractional Inspired Oxygen 21 %; HCO3 ABG 13.7 mEq/l (22.0-26.0); Methemoglobin ABG 0.2 %THb (0-1.5); Oxygen Content ABG 13.6 %vol (16.0-22.0); Oxygen Saturation ABG 95.9 % (95.0-100.0); Oxyhemoglobin 94.3 % THb (90.0-100.0); PCO2 ABG 27.3 mmHg (35.0-45.0); PO2 ABG 85.5 mmHg (80.0-100.0); PO2 FiO2 Ratio Arterial Blood 4.07 %; Reduced Hemoglobin 5.2 %THb (0-5.0); Total Hemoglobin 10.2 g/dL (12.0-18.0); pH ABG 7.319 (7.350-7.450)
[2020-04-11 08:06] LABS: Device ROOM AIR; Site Drawn LEFT BRACHIAL
[2020-04-11 08:10] LABS: Basophils Absolute Auto 0.1 K/mm3 (0.0-0.1); Basophils Percent Auto 0.5 % (0.2-1.2); Eosinophils Absolute Auto 0.3 K/mm3 (0-0.3); Eosinophils Percent Auto 3.2 % (0-4.4); Hematocrit 33.9 % (37.0-47.0); Hemoglobin 10.5 g/dL (12.0-15.0); Immature Granulocyte Absolute 0.08 K/mm3 (0.00-0.031); Immature Granulocyte Percent A 0.8 % (0-0.5); Lymphocytes Absolute Auto 2.27 K/mm3 (0.9-3.2); Lymphocytes Percent Auto 23.1 % (18.3-44.2); Mean Corpuscular Hemoglobin 29.2 pg (26-34); Mean Corpuscular Volume 94.2 fl (80-100); Monocytes Absolute Auto 0.6 K/mm3 (0.1-0.6); Monocytes Percent Auto 6.5 % (2.6-8.5); Neutrophils Absolute Auto 6.5 K/mm3 (1.3-6.7); Neutrophils Percent Auto 65.9 % (45.5-73.1); Platelet Count Result 292 k/mm3 (150-375); Red Cell Distribution Width 15.4 % (11.5-14.5); White Blood Count 9.8 K/mm3 (4.5-10.0)
[2020-04-11 08:20] LABS: INR 1.1; Prothrombin Time 13.6 Seconds (11.1-14.7)
[2020-04-11 08:25] LABS: Anion Gap 8 mmol/L (8-16); Blood Urea Nitrogen 48 mg/dL (7-17); Calcium 8.6 mg/dL (8.4-10.2); Carbon Dioxide 18 mmol/L (22-30); Chloride 112 mmol/L (98-107); Estimated CRCL calculation 40 ml/min; Estimated Glomerular Filt Rate 35; Glucose 247 mg/dL (65-105); Potassium 4.6 mmol/L (3.4-5.0); Sodium 138 mmol/L (137-145)
[2020-04-11 08:37] LABS: NT Pro B Type Natriuretic Pept 17400 PG/ML (5-100); Troponin I 0.032 ng/mL (0.000-0.034)
--- NOTE | 2020-04-11 08:45 | PC.NURSE ---
while cleaning the pt of stool, pt noted to have a small skin tear to right forearm, wound cleansed, tagaderm applied.
[2020-04-11 09:16] LABS: Lactic Acid Reflex 2.2 mmol/L (0.7-2.1)
[2020-04-11] MEDS: SODIUM CHLORIDE 0.9% IV 500 ML 999 ML IV CONT (10:14)
[2020-04-11 12:01] LABS: Reflex Lactic Acid Yes or No Add Lactic
--- NOTE | 2020-04-11 12:09 | PC.NURSE ---
This patient, Diana Ott, was admitted to IMU Room 204-01. Patient/family oriented to hospital policies and general routines including ID bracelet, bed and alarms, visiting hours, pain management, procedures, bathroom and other care routines, personal items, smoking policy, room service/diet, and visiting hours. Valuables list has been completed. Information on how to activate the Rapid Response Team has been discussed. Patient/Family are encouraged to report perceived risks to care and to ask questions if they do not understand what they are told or what they should do.
[2020-04-11 12:36] LABS: Glucose Point of Care 158 (65-105)
[2020-04-11 13:25] LABS: Lactic Acid 1.4 mmol/L (0.7-2.1)
[2020-04-11 13:26] LABS: Troponin I 0.124 ng/mL (0.000-0.034)
--- NOTE | 2020-04-11 15:00 | PM.IMHP ---
H&P: HPI History of Present Illness Date/Time: 04/11/20 15:00 Chief complaint: Possible heart attack. Narrative: Diana Ott is an unfortunate 64-year-old female with multiple medical problems to include coronary artery disease, type 1 diabetes mellitus, chronic kidney disease with history of hemodialysis now status post bilateral renal transplant x2 on chronic immunosuppressive therapy, chronic anemia, hypertension, congestive heart failure, and several other comorbidities who presented to the emergency department earlier this morning via EMS from home with concerns of a possible heart attack. At the time my evaluation she is somewhat anxious and is more confused than when I have seen her before, however that has been quite sometime ago in June 2019. I have not been able to get a hold of her son for further information as of yet, and as such some of this history is obtained via review of her electronic medical records. According to the EMS run report, the patient's son Remberto provided a majority of the history and reports that she had been complaining of right-sided jaw pain since that night before. She has also been complaining of shortness of breath and several times since admission to the floor she has called out with complaints of near syncope however she is supine in bed. At the time my evaluation she is not able to give me specifics, and when I ask her questions she frequently responds with help me or just let me and even I do not want to . After quite a bit of time, I was able to ascertain that she has had sharp chest pain in the right anterior chest radiating somewhat into the jaw. She does endorse feeling somewhat short of breath as well. On exam she is noted to have pretty significant edema and it sounds as though she rarely gets out of bed. She is status post right [id number] amputation and I do not think she has a prosthesis to ambulate. She was also noted to be covered in stool on arrival to the emergency department, and when I ask her about this she tells me that she was constipated but I am not anymore. She has not had feelings of racing heart or palpitations. She has a difficult time saying whether not her chest pain is pleuritic. She has no pain in her left lower extremity or right stump. She denies fever, chills, sweats, headache, sinus congestion, rhinorrhea, otalgia, odynophagia, cough, abdominal pain, nausea, vomiting, and dysuria. Review of Systems Review of Systems: Narrative: I attempted a 12 point review of systems however it is very limited as at time she would just not answer some of my questions. Pertinent positives and negatives are documented in the HPI, however. [facility] Past Medical History Medical History (Updated 04/12/20 @ 01:45 by Carleen Hernandez PA-C) Anemia of chronic disease Cerebrovascular accident (~2011) With mild right-sided weakness. Chronic kidney disease, stage 3 Previously on hemodialysis, now status post bilateral renal transplant x2. Her baseline creatinine varies between 1.4 and 1.60. Congestive heart failure ejection fraction was 60 to 65% in March 2019, but was as low as 30% in November 2015. She also has diastolic dysfunction. Coronary artery disease With history of [place] and stent. Deep venous thrombosis Depression Gastroesophageal reflux disease GI bleed Hyperlipidemia Hypertension Immunocompromised patient She is on chronic immunosuppressive therapy since her renal transplant. Obstructive sleep apnea Peripheral vascular disease Lower extremity Dopplers in September 2019 could not be performed because ABIs could not be obtained and CT of the abdomen pelvis in December 2019 showed extensive atherosclerosis. Seizure disorder Type 1 diabetes mellitus Diagnosed at the age of 7 and complicated by diabetic peripheral neuropathy and nephropathy. Hemoglobin A1c on 04/11/2020 was 9.3%. Urinary tract infection History of VRE and ESBL E coli UTI infections and suspected chroni
--- NOTE | 2020-04-11 15:04 | ECG_ITS ---
Measurements Intervals [place] Rate: 74 P: 45 [place]: 137 QRS: 0 QRSD: 95 T: 153 QT: 406 QTc: 453 Interpretive Statements SINUS RHYTHM POSSIBLE LEFT ATRIAL ENLARGEMENT CANNOT RULE OUT SEPTAL INFARCT, AGE INDETERMINATE ST-T WAVE ABNORMALITY IN HIGH LATERAL LEADS- CONSIDER ISCHEMIA BASELINE ARTIFACT- V6 ABNORMAL ECG Electronically Signed On 04-11-2020 16:08:07 CDT by Scott Alvarado D.O.
[2020-04-11 15:25] LABS: Alveolar/Arterial O2 Gradient 46.3 mmHg; Base Excess ABG -9.5 mEq/l (+/-2.0); Carboxyhemoglobin 0.3 % THb (0-2.0); Device NASAL CANNULA; Fractional Inspired Oxygen 24 %; HCO3 ABG 14.9 mEq/l (22.0-26.0); Methemoglobin ABG 0.3 %THb (0-1.5); Modified Allen's Test Pass; Oxygen Content ABG 14.3 %vol (16.0-22.0); Oxygen Saturation ABG 96.7 % (95.0-100.0); Oxyhemoglobin 95.2 % THb (90.0-100.0); PCO2 ABG 28.1 mmHg (35.0-45.0); PO2 ABG 91.4 mmHg (80.0-100.0); PO2 FiO2 Ratio Arterial Blood 3.81 %; Reduced Hemoglobin 4.2 %THb (0-5.0); Site Drawn RIGHT RADIAL; Total Hemoglobin 10.6 g/dL (12.0-18.0); pH ABG 7.343 (7.350-7.450)
--- NOTE | 2020-04-11 16:08 | WPDCN ---
Assessment and Plan Assessment and plan (1) NSTEMI (non-ST elevated myocardial infarction): Code(s): I21.4 - Non-ST elevation (NSTEMI) myocardial infarction Status: Acute Assessment and Plan: Patient presents with neck and jaw discomfort and shortness of breath which apparently is her anginal equivalent. She does have some dynamic ST depression anterolaterally as well as an elevated troponin up to 0.12, all suggestive of a non-STEMI/unstable angina. However, she is a very poor candidate for aggressive intervention with cardiac catheterization. I am concerned about her developing acute renal failure if she is exposed to IV contrast. In addition I think the procedure would be technically very difficult with respect to vascular access. Also, it is not clear whether she wants aggressive therapy. Will do the best we can with medical therapy and attempt to avoid cardiac cath. In the meantime we can anticoagulate and add nitrates, increase metoprolol if BP allows. (2) Chronic kidney disease, stage 3: Code(s): N18.3 - Chronic kidney disease, stage 3 (moderate) Status: Chronic Assessment and Plan: History of 2 renal transplants, with CKD stage 3 (3) Peripheral vascular disease: Code(s): I73.9 - Peripheral vascular disease, unspecified Status: Acute Assessment and Plan: Patient appears to have significant peripheral vascular disease; I could not palpate femoral pulses. Lower extremity Doppler 09/2019 could not be done because ABIs could not be obtained. Absent distal pulses and could not obtain brachial pressures. CT of the abdomen and pelvis showed extensive atherosclerosis. 12/2019 Apparently no history of procedures on the lower extremity vasculature however. (4) Acute on chronic diastolic CHF (congestive heart failure): Code(s): I50.33 - Acute on chronic diastolic (congestive) heart failure Status: Acute Assessment and Plan: Will attempt diuresis, hopefully not aggravating renal dysfunction. (5) Right leg DVT: Code(s): I82.401 - Acute embolism and thrombosis of unspecified deep veins of right lower extremity Status: Acute Assessment and Plan: Patient has a new right lower extremity DVT. She has difficult phlebotomy access as well, so will be put on Lovenox instead of heparin. (6) End of life care: Code(s): Z51.5 - Encounter for palliative care Status: Acute Assessment and Plan: Discussed goals of therapy with the patient, who told me she was very tired and she did not think she 1 any more procedures and no surgeries. long discussion with patient's son. Son Mickey who is the medical power of afternoon babysitter told me she is a DNR but he wants to proceed with aggressive care such as cardiac catheterization if needed. These issues will need to be clarified further for optimal care of this medically complex and chronically ill patient. HPI Data of Consult Date/Time: 04/11/20 16:08 Requesting Physician: Joanie Nam MD Primary Care Provider: Maddie ChangMD Consult Narrative Narrative: Date of service: 04/11/2020 Diana Ott is a 64 year old female whom we were asked to see at the request of the hospitalist for advice and opinion regarding ongoing chest pain and elevated troponins, in consultation. The patient is a poor historian, wheelchair bound living with her son, oriented luis a. She is medically complex patient. Son Remberto says she gets lasix prn for edema, and gave her 40 mg half tablet recently. Pt called her around midnight c/o feeling cold, but was otherwise OK. At 6 a.m. she called out for son again, c/o jaw and neck pain. BS was 300. He gave her her meds. Then jaw and neck pain hit again. Last time this happened i
[2020-04-11 16:21] LABS: Add Urine Microscopic? YES; Appearance Urine Cloudy (Clear); Bacteria Urine 4+ /hpf; Bilirubin Urine Negative (Negative); Blood Urine 1+ (Negative); Color Urine Yellow (Yellow); Glucose Urine UA 1+ mg/dL (Negative); Ketones Urine Trace mg/dL (Negative); Leukocyte Esterase Ur 3+ LEU/UL (Negative); Mucus Urine Rare /lpf; Nitrate Urine Positive (Negative); Protein Urine 1+ mg/dL (Negative); Specific Grav Ur 1.015 (1.001-1.035); Squamous Epithelial Cell Urine Many /hpf (Few); Urobilinogen Urine Negative mg/dL (<2.0); WBC Urine >75 /hpf
[2020-04-11 16:39] LABS: Glucose Point of Care 217 (65-105)
[2020-04-11 17:31] LABS: D Dimer 1.63 ug/mL (<0.48)
[2020-04-11 17:33] LABS: Lactic Acid Reflex 1.2 mmol/L (0.7-2.1)
[2020-04-11 17:34] LABS: Alanine Aminotransferase 9 U/L (4-35); Albumin Level 2.3 g/dL (3.5-5.1); Alkaline Phosphatase 58 U/L (38-126); Anion Gap 8 mmol/L (8-16); Aspartate Amino Transferase 16 U/L (14-36); Bilirubin,Total 0.4 mg/dL (0.2-1.3); Blood Urea Nitrogen 44 mg/dL (7-17); Calcium 8.3 mg/dL (8.4-10.2); Carbon Dioxide 16 mmol/L (22-30); Chloride 113 mmol/L (98-107); Estimated CRCL calculation 38 ml/min; Estimated Glomerular Filt Rate 35; Glucose 280 mg/dL (65-105); Potassium 4.5 mmol/L (3.4-5.0); Sodium 137 mmol/L (137-145)
[2020-04-11 17:35] LABS: Magnesium 1.7 mg/dL (1.6-2.3); Phosphorus 4.4 mg/dL (2.5-4.5)
[2020-04-11 17:38] LABS: Hemoglobin A1C 9.3 % (<5.7)
[2020-04-11 17:41] LABS: Hematocrit 28.8 % (37.0-47.0); Hemoglobin 9.1 g/dL (12.0-15.0); Mean Corpuscular HGB Conc 31.6 g/dl (32-36); Mean Corpuscular Hemoglobin 29.3 pg (26-34); Mean Corpuscular Volume 92.6 fl (80-100); Mean Platelet Volume 10.8 fl (7.4-10.4); Platelet Count Result 270 k/mm3 (150-375); Red Blood Count 3.11 M/mm3 (4.2-5.4); Red Cell Distribution Width 15.4 % (11.5-14.5); White Blood Count 8.8 K/mm3 (4.5-10.0)
[2020-04-11] MEDS: FUROSEMIDE INJ 40 MG/4 ML VIAL IV PUSH (18:36)
[2020-04-11] MEDS: NITROGLYCERIN OINTMENT 1 INCH DOSE TRANSDERM ×2 (18:37→23:32)
[2020-04-11] MEDS: ENOXAPARIN 100 MG/ML SYRINGE SUB-Q (18:37)
[2020-04-11 20:03] LABS: Glucose Point of Care 350 (65-105)
[2020-04-11] MEDS: levETIRAcetam 500 MG TABLET PO (20:08)
[2020-04-11] MEDS: mycophenolate mofetiL 250 MG CAPSULE PO (20:08)
[2020-04-11] MEDS: cloNIDine HCL 0.2 MG TABLET PO (20:09)
[2020-04-11] MEDS: ATORVASTATIN 40 MG TABLET PO (20:09)
[2020-04-11] MEDS: METOPROLOL TARTRATE 12.5 MG TABLET PO (20:09)
[2020-04-11] MEDS: PANTOPRAZOLE 40 MG TABLET PO (20:10)
[2020-04-11] MEDS: TAMSULOSIN HCL 0.4 MG CAPSULE PO (20:10)
[2020-04-11] MEDS: METOPROLOL TARTRATE 25 MG TABLET PO (20:10)
[2020-04-11] MEDS: INSULIN GLARGINE (*BKC) 100 UNITS/ML 12 UNITS SUB-Q (20:11)
[2020-04-12] VITALS (18 sets, daily range): BP systolic 108–129; BP diastolic 46–88; PULSE 67–77; RESP 18–22; TEMP 35.9–36.7; O2SAT 99–100
[2020-04-12] MEDS: ENOXAPARIN 100 MG/ML SYRINGE SUB-Q ×2 (06:18→17:37)
[2020-04-12] MEDS: NITROGLYCERIN OINTMENT 1 INCH DOSE TRANSDERM ×4 (06:20→23:24)
[2020-04-12 07:58] LABS: Glucose Point of Care 279 (65-105)
--- NOTE | 2020-04-12 08:43 | PM.CNCAR ---
Assessment and Plan Assessment and plan (1) NSTEMI (non-ST elevated myocardial infarction): Code(s): I21.4 - Non-ST elevation (NSTEMI) myocardial infarction Status: Acute Assessment and Plan: Patient presents with neck and jaw discomfort and shortness of breath which apparently is her anginal equivalent. She does have some dynamic ST depression anterolaterally as well as an elevated troponin up to 0.12, all suggestive of a non-STEMI/unstable angina. However, she is a very poor candidate for aggressive intervention with cardiac catheterization. I am concerned about her developing acute renal failure if she is exposed to IV contrast. In addition I think the procedure would be technically very difficult with respect to vascular access. Also, it is not clear whether she wants aggressive therapy. Will do the best we can with medical therapy and attempt to avoid cardiac cath. In the meantime we can anticoagulate and add nitrates, increase metoprolol if BP allows. (2) Chronic kidney disease, stage 3: Code(s): N18.3 - Chronic kidney disease, stage 3 (moderate) Status: Acute Assessment and Plan: History of 2 renal transplants, with CKD stage 3 (3) Peripheral vascular disease: Code(s): I73.9 - Peripheral vascular disease, unspecified Status: Acute Assessment and Plan: Patient appears to have significant peripheral vascular disease; I could not palpate femoral pulses. Lower extremity Doppler 09/2019 could not be done because ABIs could not be obtained. Absent distal pulses and could not obtain brachial pressures. CT of the abdomen and pelvis showed extensive atherosclerosis. 12/2019 Apparently no history of procedures on the lower extremity vasculature however. (4) Acute on chronic diastolic CHF (congestive heart failure): Code(s): I50.33 - Acute on chronic diastolic (congestive) heart failure Status: Acute Assessment and Plan: Will attempt diuresis, hopefully not aggravating renal dysfunction. (5) Right leg DVT: Code(s): I82.401 - Acute embolism and thrombosis of unspecified deep veins of right lower extremity Status: Acute Assessment and Plan: Patient has a new right lower extremity DVT. She has difficult phlebotomy access as well, so will be put on Lovenox instead of heparin. (6) End of life care: Code(s): Z51.5 - Encounter for palliative care Status: Acute Assessment and Plan: Discussed goals of therapy with the patient, who told me she was very tired and she did not think she 1 any more procedures and no surgeries. long discussion with patient's son. Son Mickey who is the medical power of employment law attorney told me she is a DNR but he wants to proceed with aggressive care such as cardiac catheterization if needed. These issues will need to be clarified further for optimal care of this medically complex and chronically ill patient. History of Present Illness History of Present Illness Consult date/time: date of onpnppn93/27/20 08:43 Reason For Visit: Possible heart attack. Review of Systems Constitutional: Constitutional: Reports fatigue, Reports lethargy and Reports weakness Eyes: Eyes: Reports blurry vision ENT: Denies Normal hearing present Cardiovascular: Cardiovascular: Reports chest pain, Denies diaphoresis, Reports pedal edema, Reports leg edema, Denies lightheadedness, Denies palpitations and Reports dyspnea Respiratory: Respiratory: Denies chest congestion, Denies cough, Denies hemoptysis and Reports dyspnea Gastrointestinal: Gastrointestinal: Denies abdominal pain and Reports constipation ( Son has been treating her constipation) Musculoskeletal: Musculoskeletal: Reports no additional musculoskeletal complaints Integumentary/Br
[2020-04-12] MEDS: FOLIC ACID 1 MG TABLET PO (08:46)
[2020-04-12] MEDS: polyethylene glycoL 3350 17 GM POWD.PACK PO (08:46)
[2020-04-12] MEDS: mycophenolate mofetiL 250 MG CAPSULE PO ×2 (08:46→17:37)
[2020-04-12] MEDS: ISOSORBIDE MONONITRATE 15 MG TAB.ER.24H PO (08:46)
[2020-04-12] MEDS: cloNIDine HCL 0.2 MG TABLET PO ×2 (08:47→20:56)
[2020-04-12] MEDS: levETIRAcetam 500 MG TABLET PO ×2 (08:47→17:37)
[2020-04-12] MEDS: allopurinoL 100 MG TABLET PO (08:47)
[2020-04-12] MEDS: CLOPIDOGREL BISULFATE 75 MG TABLET PO (08:47)
[2020-04-12] MEDS: MAGNESIUM OXIDE 400 MG TABLET PO (08:47)
[2020-04-12] MEDS: predniSONE 5 MG TABLET PO (08:47)
[2020-04-12] MEDS: FUROSEMIDE INJ 40 MG/4 ML VIAL IV PUSH ×3 (08:47→20:58)
[2020-04-12] MEDS: PANTOPRAZOLE 40 MG TABLET PO ×2 (08:48→20:57)
[2020-04-12] MEDS: INSULIN GLARGINE (*BKC) 100 UNITS/ML 12 UNITS SUB-Q ×2 (08:48→20:56)
[2020-04-12] MEDS: INSULIN ASPART (*BKC) 100 UNITS/ML SUB-Q ×2 (08:49→12:36)
--- NOTE | 2020-04-12 08:49 | PM.PNCARD ---
Progress Note: A&P Assessment and Plan (1) NSTEMI (non-ST elevated myocardial infarction): Code(s): I21.4 - Non-ST elevation (NSTEMI) myocardial infarction Status: Acute Assessment and Plan: patient presents with jaw discomfort and shortness of breath. Acute DVT was diagnosed in the right lower extremity. Troponin 0.12 which was elevated on previous admissions. Depression in EKG. Looking at the patient overall she seems to be a poor candidate for cardiac catheterization given underlying possible dementia, confusion, CKD stage 3. Cardiac catheterization will likely result in further deterioration of kidney function and possible dialysis. would favor strongly medical management. (2) Chronic kidney disease, stage 3: Code(s): N18.3 - Chronic kidney disease, stage 3 (moderate) Status: Acute Assessment and Plan: History of 2 renal transplants, with CKD stage 3 (3) Peripheral vascular disease: Code(s): I73.9 - Peripheral vascular disease, unspecified Status: Acute Assessment and Plan: Patient appears to have significant peripheral vascular disease; I could not palpate femoral pulses. Lower extremity Doppler 09/2019 could not be done because ABIs could not be obtained. Absent distal pulses and could not obtain brachial pressures. CT of the abdomen and pelvis showed extensive atherosclerosis. 12/2019 Apparently no history of procedures on the lower extremity vasculature however. (4) Acute on chronic diastolic CHF (congestive heart failure): Code(s): I50.33 - Acute on chronic diastolic (congestive) heart failure Status: Acute Assessment and Plan: Will attempt diuresis, hopefully not aggravating renal dysfunction. she is seemed to be significant edema. this could be because of diastolic dysfunction. however also her albumin is 2.3 which will contribute to this edema.. (5) Right leg DVT: Code(s): I82.401 - Acute embolism and thrombosis of unspecified deep veins of right lower extremity Status: Acute Assessment and Plan: Patient has a new right lower extremity DVT. She has difficult phlebotomy access as well, so will be put on Lovenox instead of heparin. (6) End of life care: Code(s): Z51.5 - Encounter for palliative care Status: Acute Assessment and Plan: Discussed goals of therapy with the patient, who told me she was very tired and she did not think she 1 any more procedures and no surgeries. long discussion with patient's son. Son Mickey who is the medical power of research attorney told me she is a DNR but he wants to proceed with aggressive care such as cardiac catheterization if needed. These issues will need to be clarified further for optimal care of this medically complex and chronically ill patient. Subjective Date/time seen: date of vfyxerd97/27/20 08:49 today she denies shortness of breath or chest pain. she is sitting comfortably on the bed. patient thinks that she is 34 years old. she does not seem to be in acute distress. Exam Const: General: comfortable Eyes: Sclera: sclerae normal and normal sclerae Neck: Neck: no JVD Resp: Auscultation: clear to auscultation bilaterally Cardio: Rate: regular rate Heart sounds: no gallops and no murmurs GI: Other: obese abdomen Skin: Other: rash in the right lower extremity Neuro: Other: patient is not oriented to time or place. she can answer some direct questions sometimes likely due to have chest pain or shortness of breath but again she thinks that she is 34 years old. she moves well extremities Extrem: General: edema and pedal edema Psych: Other: disoriented. underlying dementia? Objective Data Vital Signs Vital Signs: Vital Signs - 24 hr 04/11/20 09:15
[2020-04-12] MEDS: ASPIRIN 81 MG CHEWABLE TABLET PO (08:52)
[2020-04-12 09:13] LABS: Basophils Absolute Auto 0.1 K/mm3 (0.0-0.1); Basophils Percent Auto 0.5 % (0.2-1.2); Eosinophils Absolute Auto 0.4 K/mm3 (0-0.3); Eosinophils Percent Auto 3.8 % (0-4.4); Hematocrit 28.1 % (37.0-47.0); Hemoglobin 8.8 g/dL (12.0-15.0); Immature Granulocyte Absolute 0.08 K/mm3 (0.00-0.031); Immature Granulocyte Percent A 0.8 % (0-0.5); Lymphocytes Absolute Auto 1.83 K/mm3 (0.9-3.2); Lymphocytes Percent Auto 18.1 % (18.3-44.2); Mean Corpuscular HGB Conc 31.3 g/dl (32-36); Mean Corpuscular Hemoglobin 29.1 pg (26-34); Mean Platelet Volume 10.6 fl (7.4-10.4); Monocytes Absolute Auto 0.9 K/mm3 (0.1-0.6); Neutrophils Absolute Auto 6.9 K/mm3 (1.3-6.7); Neutrophils Percent Auto 67.8 % (45.5-73.1); Platelet Count Result 256 k/mm3 (150-375); Red Blood Count 3.02 M/mm3 (4.2-5.4); Red Cell Distribution Width 15.4 % (11.5-14.5); White Blood Count 10.1 K/mm3 (4.5-10.0)
[2020-04-12 09:22] LABS: Alanine Aminotransferase 10 U/L (4-35); Albumin Level 2.4 g/dL (3.5-5.1); Alkaline Phosphatase 58 U/L (38-126); Anion Gap 6 mmol/L (8-16); Aspartate Amino Transferase 15 U/L (14-36); Bilirubin,Total 0.6 mg/dL (0.2-1.3); Blood Urea Nitrogen 44 mg/dL (7-17); Calcium 8.3 mg/dL (8.4-10.2); Carbon Dioxide 20 mmol/L (22-30); Chloride 110 mmol/L (98-107); Estimated CRCL calculation 37 ml/min; Estimated Glomerular Filt Rate 35; Glucose 286 mg/dL (65-105); Potassium 4.5 mmol/L (3.4-5.0); Sodium 136 mmol/L (137-145)
[2020-04-12] MEDS: METOPROLOL TARTRATE 25 MG TABLET PO ×2 (10:30→20:57)
--- NOTE | 2020-04-12 11:59 | PM.IMPN ---
Progress Note: A&P Assessment and Plan (1) Chest pain: Qualifiers: Chest pain type: unspecified Qualified Code(s): R07.9 - Chest pain, unspecified Code(s): R07.9 - Chest pain, unspecified Status: Acute Assessment and Plan: Secondary to NSTEMI; management per cardiology. Patient denies chest pain at present but somewhat unreliable. Cardiology notes reviewed - she is a poor candidate for cardiac catheterization due to renal function and possible underlying dementia. Continue medical management per cardiology. (2) Metabolic acidosis: Code(s): E87.2 - Acidosis Status: Acute Assessment and Plan: Compensated metabolic acidosis on ABG with a non anion gap hyperchloremic acidosis on chemistries. Delta gap -9. On review of previous labs, this seems to be a chronic acidosis, which will be monitored. (3) Altered mental status: Qualifiers: Altered mental status type: disorientation Qualified Code(s): R41.0 - Disorientation, unspecified Code(s): R41.82 - Altered mental status, unspecified Status: Acute Assessment and Plan: She is able to answer some questions appropriately but is disoriented. In the past we have suspected that she likely has underlying dementia although I am not sure she has been diagnosed. (4) Deep vein thrombosis of right femoral vein: Qualifiers: Chronicity: acute Qualified Code(s): I82.411 - Acute embolism and thrombosis of right femoral vein Code(s): I82.411 - Acute embolism and thrombosis of right femoral vein Status: Acute Assessment and Plan: Right common femoral DVT on imaging. Continue therapeutic Lovenox. (5) Shortness of breath: Code(s): R06.02 - Shortness of breath Status: Acute Assessment and Plan: Suspect may be secondary to chronic pleural effusions noted on imaging. Given her right common femoral DVT, there are concerns for PE for which she had been started on Lovenox. At this time, will hold on V/Q scan as it ultimately will not environmental change analyst at this time. (6) Peripheral vascular disease: Code(s): I73.9 - Peripheral vascular disease, unspecified Status: Acute Assessment and Plan: She appears have pretty significant vascular disease with decreased radial pulses; not able to palpate femoral pulses. In the past, previous Dopplers could not be done as ABIs could not be obtained. (7) Chronic kidney disease, stage 3: Code(s): N18.3 - Chronic kidney disease, stage 3 (moderate) Status: Acute Assessment and Plan: Creatinine is stable on review of previous labs. Monitor renal function closely while diuresing. (8) Type 1 diabetes mellitus: Qualifiers: Diabetes mellitus complication detail: with other circulatory complications Diabetes mellitus complication status: with circulatory complication Qualified Code(s): E10.59 - Type 1 diabetes mellitus with other circulatory complications Code(s): E10.9 - Type 1 diabetes mellitus without complications Status: Acute Assessment and Plan: Continue basal insulin and initiate sliding scale insulin, Accu-Cheks, and hypoglycemic protocol. (9) Congestive heart failure: Qualifiers: Heart failure chronicity: acute on chronic Heart failure type: diastolic Qualified Code(s): I50.33 - Acute on chronic diastolic (congestive) heart failure Code(s): I50.9 - Heart failure, unspecified Status: Chronic Assessment and Plan: Management per cardiology - appreciate recommendations. Ghassan pryor
[2020-04-12 12:02] LABS: Glucose Point of Care 217 (65-105)
--- NOTE | 2020-04-12 15:39 | ECHO_ITS ---
Patient Info Name: Diana Ott Age: 64 years : 1955 Gender: Female Ht: 64 in Wt: 207 lbs BSA: 2.10 m2 HR: 83 bpm BP: 122 / 68 mmHg Heart Rhythm: Sinus Rhythm Technical Quality: Fair Exam Date: 04/12/2020 11:19 AM Exam Location: [facility] Patient Status: Inpatient Admit Date: 04/12/2020 Staff Ordering Physician: Carleen Hernandez PA-C Electrical Line Worker: Preeti Angel RDCS Attending Provider: Joanie Nam MD Referring Physician: Mary HARRY; Exam Type: CA echo doppler color flow Study Info Indications R07.9 - Chest pain, unspecified Complete two-dimensional, color flow and Doppler transthoracic echocardiogram is performed. Summary 1. Complete two-dimensional, color flow and Doppler transthoracic echocardiogram is performed. 2. Normal left ventricular size with moderate concentric hypertrophy. Overall good left ventricular systolic function with an ejection fraction of 62%, but with akinesis of the basal inferoseptal segment. Grade 2 diastolic dysfunction is present. 3. Left atrial chamber dimension is moderately enlarged. 4. There is mild mitral valve regurgitation. 5. Mild aortic valve calcification without stenosis. 6. Mild pulmonary hypertension, estimated pulmonary arterial systolic pressure is 41 mmHg. 7. There is mild aortic atherosclerosis. 8. Moderate to large left pleural effusion. 9. Normal sinus rhythm. 10. Compared to the echo of March 2019, the inferior wall hypokinesis is new. Left Ventricle Left ventricular chamber dimension is normal. Left ventricular systolic function is normal, estimated at 60-65%. There is moderately increased left ventricular wall thickness. Left ventricular septal wall motion is normal. The left ventricular diastolic function is grade II diastolic dysfunction. Right Ventricle Right ventricular chamber dimension is normal. Right ventricular systolic function is normal. Left Atria Left atrial chamber dimension is moderately enlarged. Right Atria Right atrial chamber dimension is normal. Aortic Valve The aortic valve is trileaflet. There is no aortic valve sclerosis. There is no aortic valve stenosis. There is no aortic valve regurgitation. There is mild aortic valve calcification. Pulmonic Valve The pulmonic valve is normal. There is no pulmonic valve stenosis. There is trace pulmonic regurgitation. Mitral Valve The mitral valve has thickened leaflets. There is no mitral valve stenosis. There is mild mitral valve regurgitation. Tricuspid Valve The tricuspid valve leaflets are normal. There is no significant tricuspid valve stenosis. There is trace tricuspid valve regurgitation. Mild pulmonary hypertension, estimated pulmonary arterial systolic pressure is 41 mmHg. Pericardium/Pleural The pericardium appears normal. There is no pericardial effusion. Inferior Vena Cava Normal inferior vena cava with >50% collapse upon inspiration consistent with Empty right atrial pressure, 10 mmHg. Aorta The aortic root size at the sinus of Valsalva is normal. The prox ascending aorta size is normal. There is mild aortic atherosclerosis. Left Ventricular Outflow Tract Name Value Normal LVOT 2D LVOT Diamete
[2020-04-12 17:22] LABS: Glucose Point of Care 131 (65-105)
[2020-04-12] MEDS: ERTAPENEM 1 GM/NS 50 ML 1 GM/50 ML BAG IVPB (20:54)
[2020-04-12] MEDS: ATORVASTATIN 40 MG TABLET PO (20:56)
[2020-04-12] MEDS: TAMSULOSIN HCL 0.4 MG CAPSULE PO (20:58)
[2020-04-12 21:13] LABS: Glucose Point of Care 132 (65-105)
[2020-04-13] VITALS (9 sets, daily range): BP systolic 101–149; BP diastolic 40–61; PULSE 61–70; RESP 16–20; TEMP 36.2–36.6; O2SAT 97–100
[2020-04-13] MEDS: ENOXAPARIN 100 MG/ML SYRINGE SUB-Q (06:46)
[2020-04-13] MEDS: FUROSEMIDE INJ 40 MG/4 ML VIAL IV PUSH (06:46)
[2020-04-13] MEDS: NITROGLYCERIN OINTMENT 1 INCH DOSE TRANSDERM (06:47)
[2020-04-13] MEDS: DEXTROSE 50% 25 GM/50 ML SYRINGE IV PUSH ×2 (07:52→08:02)
[2020-04-13] MEDS: predniSONE 5 MG TABLET PO (08:18)
[2020-04-13] MEDS: CLOPIDOGREL BISULFATE 75 MG TABLET PO (08:19)
[2020-04-13] MEDS: METOPROLOL TARTRATE 25 MG TABLET PO (08:19)
[2020-04-13] MEDS: ISOSORBIDE MONONITRATE 15 MG TAB.ER.24H PO (08:19)
[2020-04-13] MEDS: levETIRAcetam 500 MG TABLET PO (08:19)
[2020-04-13] MEDS: mycophenolate mofetiL 250 MG CAPSULE PO (08:19)
[2020-04-13] MEDS: FOLIC ACID 1 MG TABLET PO (08:19)
[2020-04-13] MEDS: allopurinoL 100 MG TABLET PO (08:19)
[2020-04-13] MEDS: ASPIRIN 81 MG CHEWABLE TABLET PO (08:19)
[2020-04-13] MEDS: CYANOCOBALAMIN 1,000 MCG TABLET 1000 MCG PO (08:20)
[2020-04-13] MEDS: polyethylene glycoL 3350 17 GM POWD.PACK PO (08:20)
[2020-04-13] MEDS: PANTOPRAZOLE 40 MG TABLET PO (08:20)
[2020-04-13 08:46] LABS: Glucose Point of Care 36 (65-105)
[2020-04-13 08:46] LABS: Glucose Point of Care 148 (65-105)
[2020-04-13 09:18] LABS: Basophils Percent Auto 0.4 % (0.2-1.2); Eosinophils Absolute Auto 0.2 K/mm3 (0-0.3); Eosinophils Percent Auto 2.1 % (0-4.4); Hematocrit 28.6 % (37.0-47.0); Hemoglobin 9.1 g/dL (12.0-15.0); Immature Granulocyte Percent A 0.9 % (0-0.5); Lymphocytes Absolute Auto 1.83 K/mm3 (0.9-3.2); Lymphocytes Percent Auto 16.5 % (18.3-44.2); Mean Corpuscular HGB Conc 31.8 g/dl (32-36); Mean Corpuscular Hemoglobin 29.5 pg (26-34); Mean Corpuscular Volume 92.9 fl (80-100); Mean Platelet Volume 11.2 fl (7.4-10.4); Monocytes Absolute Auto 0.8 K/mm3 (0.1-0.6); Monocytes Percent Auto 6.9 % (2.6-8.5); Neutrophils Absolute Auto 8.1 K/mm3 (1.3-6.7); Neutrophils Percent Auto 73.2 % (45.5-73.1); Platelet Count Result 266 k/mm3 (150-375); Red Blood Count 3.08 M/mm3 (4.2-5.4); Red Cell Distribution Width 15.7 % (11.5-14.5); White Blood Count 11.1 K/mm3 (4.5-10.0)
[2020-04-13 09:32] LABS: Anion Gap 7 mmol/L (8-16); Blood Urea Nitrogen 46 mg/dL (7-17); Calcium 8.3 mg/dL (8.4-10.2); Carbon Dioxide 20 mmol/L (22-30); Chloride 109 mmol/L (98-107); Estimated CRCL calculation 33 ml/min; Estimated Glomerular Filt Rate 30; Glucose 140 mg/dL (65-105); Magnesium 1.8 mg/dL (1.6-2.3); Potassium 3.8 mmol/L (3.4-5.0); Sodium 136 mmol/L (137-145)
--- NOTE | 2020-04-13 09:57 | PM.IMPN ---
Progress Note: A&P Assessment and Plan (1) Hypoglycemia: Code(s): E16.2 - Hypoglycemia, unspecified Status: Acute Assessment and Plan: Discharged - See discharge summary. Unresponsive episode this morning with a blood sugar of 36. 1 amp D50 given and blood sugar up to 148. Patient now awake and talking. (2) NSTEMI (non-ST elevated myocardial infarction): Code(s): I21.4 - Non-ST elevation (NSTEMI) myocardial infarction Status: Acute Assessment and Plan: Secondary to NSTEMI; management per cardiology. Patient denies chest pain at present but somewhat unreliable. Cardiology notes reviewed - she is a poor candidate for cardiac catheterization due to renal function and possible underlying dementia. Continue medical management per cardiology. (3) Metabolic acidosis: Code(s): E87.2 - Acidosis Status: Acute Assessment and Plan: Compensated metabolic acidosis on ABG with a non anion gap hyperchloremic acidosis on chemistries. On review of previous labs, this seems to be a chronic acidosis which will be monitored, improving. (4) Deep vein thrombosis of right femoral vein: Qualifiers: Chronicity: acute Qualified Code(s): I82.411 - Acute embolism and thrombosis of right femoral vein Code(s): I82.411 - Acute embolism and thrombosis of right femoral vein Status: Acute Assessment and Plan: Right common femoral DVT on imaging. On therapeutic Lovenox. (5) Altered mental status: Qualifiers: Altered mental status type: disorientation Qualified Code(s): R41.0 - Disorientation, unspecified Code(s): R41.82 - Altered mental status, unspecified Status: Acute Assessment and Plan: She is able to answer some questions appropriately but is disoriented. During previous admissions we have suspected that she likely has underlying dementia. Discussed this with her son, Remberto, who tells me she sometimes has trouble with numbers and dates but that he attributes this to her being hard of hearing. (6) Shortness of breath: Code(s): R06.02 - Shortness of breath Status: Acute Assessment and Plan: Suspect may be secondary to chronic pleural effusions noted on imaging. Given her right common femoral DVT, there are concerns for PE for which she had been started on Lovenox. At this time, will hold on V/Q scan as it ultimately will not change over at this time. (7) Peripheral vascular disease: Code(s): I73.9 - Peripheral vascular disease, unspecified Status: Acute Assessment and Plan: She appears have pretty significant vascular disease with decreased radial pulses; not able to palpate femoral pulses. In the past, previous Dopplers could not be done as ABIs could not be obtained. (8) Chronic kidney disease, stage 3: Code(s): N18.3 - Chronic kidney disease, stage 3 (moderate) Status: Acute Assessment and Plan: Creatinine is stable on review of previous labs. Monitor renal function closely while diuresing. Cr up to 1.7 this morning. (9) Type 1 diabetes mellitus: Qualifiers: Diabetes mellitus complication detail: with other circulatory complications Diabetes mellitus complication status: with circulatory complication Qualified Code(s): E10.59 - Type 1 diabetes mellitus with other circulatory complications Code(s): E10.9 - Type 1 diabetes mellitus without complications Status: Acute Assessment and Plan: With hypoglycemia this morning. Lantus held. Continue to monitor with Accu-Cheks. Hypoglycemic protocol. _
--- NOTE | 2020-04-13 10:14 | PC.NURSE ---
0753 Patient's blood sugar 36. Patient unresponsive, rapid response called. Patient received 1 amp D50 IVP and became arousable to name. JEFFREY Kellogg at bedside.
--- NOTE | 2020-04-13 11:47 | PM.PNCARD ---
Progress Note: A&P Additional Plan 64-year-old white female with: History of coronary artery disease and previous PCI and multiple previous comorbidities as detailed above. Plans are for conservative medical therapy because of all this and the patient now appears to be in the middle of plans to be discharged with hospice care services. It appears that the only real change in her medical regimen following admission has been to advance her beta-malia to 25 mg q.12 hours. No cardiac disagreement with plans for discharge at this time. I will notify our office that the patient is planning to be discharged with hospice care. Wesley Quiles MD [facility] Subjective Date/time seen: date of service:04/13/20 11:47 Interval history: Follow-up visit in this 64-year-old lady with known coronary artery disease with shortness of breath and possible small non ST elevation [place] patient states that she feels very well today and has no complaints specifically denies any chest pain or dyspnea. Upon entering the room the patient and her son are discussing discharge and follow up with hospice services. Exam Const: General: no acute distress HENMT: Mouth: Yes moist mucous membranes Eyes: Pupils: Equal, round and reactive pupils present Neck: Neck: supple and no JVD Other: No audible carotid bruits Resp: Effort & Inspection: normal respiratory effort Other: mild central rhonchi noted bilaterally otherwise very good air exchange Cardio: Rate: regular rate Rhythm: regular rhythm GI: Auscultation: normal bowel sounds Neuro: Cognition (Neuro): normal cognition Extrem: Other: status post right lower extremity amputation, no palpable pulses in the left lower extremity Objective Data Vital Signs Vital Signs: Vital Signs - 24 hr 04/12/20 12:00 04/12/20 14:00 04/12/20 14:39 Temperature 36.7 C Pulse Rate 70 68 Respiratory Rate 22 H Blood Pressure 117/77 125/88 Pulse Oximetry 100 04/12/20 16:00 04/12/20 18:00 04/12/20 19:46 Temperature 36.6 C 36.2 C L Pulse Rate 70 70 69 Respiratory Rate 20 20 Blood Pressure 128/46 L 108/46 L Pulse Oximetry 99 100 04/12/20 20:00 04/12/20 20:57 04/12/20 22:00 Temperature Pulse Rate 67 68 68 Respiratory Rate Blood Pressure Pulse Oximetry 04/13/20 00:00 04/13/20 02:00 04/13/20 04:00 Temperature 36.4 C 36.2 C L Pulse Rate 62 63 67 Respiratory Rate 20 18 Blood Pressure 149/40 H 125/60 Pulse Oximetry 100 97 04/13/20 06:00 04/13/20 08:00 04/13/20 08:19 Temperature 36.2 C L Pulse Rate 64 69 67 Respiratory Rate 18 Blood Pressure 101/49 L Pulse Oximetry 99 04/13/20 10:00 Temperature Pulse Rate 61 Respiratory Rate Blood Pressure Pulse Oximetry Intake/Output Intake/Output: Intake & Output 04/10/20 04/11/20 04/12/20 04/13/20 23:59 23:59 23:59 23:59 Intake Total 860 635 350 Output Total 200 1000 800 Balance 334 -709 -155 Meds/Results Medications: Active Medications Generic Name Dose Route Start Last Admin Trade Name Freq PRN Reason Stop Dose Admin Allopurinol 100 mg 04/12/20 09:00 04/13/20 08:19 Zyloprim PO 100 mg DAILY [facility] Administration Aspirin 81 mg 04/12/20 08:00 04/13/20 08:19 Aspirin Chewable PO 81 mg DAILY@0800 [facility] Administration Atorvastatin Calcium 40 mg 04/11/20 21:00 04/12/20 20:56 Lipitor PO 40 mg HS [facility] Administration Clonidine HCl 0.2 mg 04/11/20 21:00 04/13/20 08:16 Catapres PO Not Given Q12HR [facility] Clopidogrel Bisulfate 75 mg 04/12/20 09:00 04/13/20 08:19 Plavix PO 75 mg QAM [facility] Administration Cyanocobalamin 1,000 mcg 04/13/20 09:00 04/13/20 08:20 Vitamin B-12 Tab PO 1,000 mcg MoWeFr@0900 [facility] Administration Cyclosporine 50 mg 04/11/20 17:00 04/13/20 08:19 Neoral Capsule PO 50 mg BID [facility] Administration Dextrose 12.5 gm 04/11/20 18:52 04/13/20 08:02 Dextrose 50% Syringe IV PUSH 12.5 gm PRN
[2020-04-13 11:53] LABS: Glucose Point of Care 132 (65-105)
--- NOTE | 2020-04-13 16:38 | PM.DS ---
DS: Admitting Diagnosis Admitting Diagnosis Admitting Diagnosis: Chest pain DS: Discharge Diagnosis Discharge Diagnosis (1) NSTEMI (non-ST elevated myocardial infarction): Code(s): I21.4 - Non-ST elevation (NSTEMI) myocardial infarction Status: Acute Assessment and Plan: Date of Service 04/13/20 Ms. Ott is an unfortunate 64-year-old female with several medical problems to include coronary artery disease, type 1 diabetes mellitus, chronic kidney disease with history of hemodialysis now status post bilateral renal transplant x2 on chronic immunosuppressive therapy, chronic anemia, hypertension, congestive heart failure, right [id number] amputation, and several other comorbidities who presented to the ED for evaluation of chest pain. She was noted to have elevated troponins and ST depression. Cardiology was consulted for NSTEMI. She is noted to be a poor candidate for cardiac catheterization due renal failure and possible underlying dementia. The contrast may cause enough kidney injury to result in a need for dialysis again. She was found have right femoral DVT for which she was started on subcu Lovenox. She is noted to have bilateral chronic pleural effusions. This morning a rapid response was called due to unresponsiveness. Patient's glucose was 36 she was given 1 amp D50, after which her blood sugar improved to 148 and she was awake and talking. Multiple lengthy discussions were held with her power of civil attorney and son, Mickey, regarding goals for further plan of care. He wishes to keep her comfortable. Her son met with [facility] hospice. She is hemodynamically stable for discharge with [facility] hospice today 04/13/20. NSTEMI; evaluated by cardiology. She is a poor candidate for cardiac catheterization due to renal function and possible underlying dementia. Continue medical management, her metoprolol was increased. (2) Hypoglycemia: Code(s): E16.2 - Hypoglycemia, unspecified Status: Acute Assessment and Plan: Unresponsive episode this morning with a blood sugar of 36. 1 amp D50 given and blood sugar up to 148. Patient now awake and talking. (3) Metabolic acidosis: Code(s): E87.2 - Acidosis Status: Acute Assessment and Plan: Compensated metabolic acidosis on ABG with a non anion gap hyperchloremic acidosis on chemistries. On review of previous labs, this seems to be a chronic acidosis. Improving. (4) Deep vein thrombosis of right femoral vein: Qualifiers: Chronicity: acute Qualified Code(s): I82.411 - Acute embolism and thrombosis of right femoral vein Code(s): I82.411 - Acute embolism and thrombosis of right femoral vein Status: Acute Assessment and Plan: Right common femoral DVT on imaging. Treated with therapeutic Lovenox, discharged with Eliquis. (5) Altered mental status: Qualifiers: Altered mental status type: disorientation Qualified Code(s): R41.0 - Disorientation, unspecified Code(s): R41.82 - Altered mental status, unspecified Status: Acute Assessment and Plan: She is able to answer some questions appropriately but is disoriented. During previous admissions we have suspected that she likely has underlying dementia. Discussed this with her son, Remberto, who tells me she sometimes has trouble with numbers and dates but that he attributes this to her being hard of hearing. (6) Shortness of breath: Code(s): R06.02 - Shortness of breath Status: Acute Assessment and Plan: Suspect may be secondary to chronic pleural effusions noted on imaging. Given her right common femoral DVT, there are concerns for PE for which she had been st
== END 2020-04-13 16:15 | disposition hospice, home (50) | DRG 280 ==
LOC: ANHED 08:35 → ANHIMU 10:54
PROVIDERS: Physician Assistant; Admitting Provider Family Medicine; Emergency Provider General Practice; PCP Family Medicine; Visit Provider Physician Assistant
DX: I21.4 Non-ST elevation (NSTEMI) myocardial infarction (principal); I50.33 Acute on chronic diastolic (congestive) heart failure; I13.0 Hypertensive heart and chronic kidney disease with heart failure and stage 1 through stage 4 chronic kidney disease, or unspecified chronic kidney disease; E87.2 Acidosis; I82.411 Acute embolism and thrombosis of right femoral vein; N39.0 Urinary tract infection, site not specified; I69.351 Hemiplegia and hemiparesis following cerebral infarction affecting right dominant side; Z94.0 Kidney transplant status; E10.22 Type 1 diabetes mellitus with diabetic chronic kidney disease; N18.3 Chronic kidney disease, stage 3 (moderate); E10.649 Type 1 diabetes mellitus with hypoglycemia without coma; I25.10 Atherosclerotic heart disease of native coronary artery without angina pectoris; Z96.651 Presence of right artificial knee joint; E10.51 Type 1 diabetes mellitus with diabetic peripheral angiopathy without gangrene; F03.90 Unspecified dementia, unspecified severity, without behavioral disturbance, psychotic disturbance, mood disturbance, and anxiety; I73.9 Peripheral vascular disease, unspecified; Z51.5 Encounter for palliative care; K21.9 Gastro-esophageal reflux disease without esophagitis; E78.5 Hyperlipidemia, unspecified; G47.33 Obstructive sleep apnea (adult) (pediatric); G40.909 Epilepsy, unspecified, not intractable, without status epilepticus; D64.9 Anemia, unspecified; Z66 Do not resuscitate; Z98.42 Cataract extraction status, left eye; Z90.49 Acquired absence of other specified parts of digestive tract; Z86.718 Personal history of other venous thrombosis and embolism; Z95.5 Presence of coronary angioplasty implant and graft; Z89.511 Acquired absence of right leg below knee; E55.9 Vitamin D deficiency, unspecified; Z98.41 Cataract extraction status, right eye
CPT/HCPCS: 36415; 36600; 51701; 71045; 73660; 80048; 80053; 81001; 82375; 82805; 83036; 83050; 83605; 83735; 83880; 84100; 84443; 84484; 85025; 85027; 85380; 85610; 85730; 87040; 87077; 87086; 87088; 87147; 87186; 93005; 93306; 93970; 96372; 96374; 96376; 99285; A9270; G0378; J1335; J1650; J1815; J1940; J7040; J7512; J7515; J7517